=== PATIENT | female | born 1960 | race Caucasian/White ===

== ENCOUNTER 2024-08-16 21:25 | Inpatient (IN) | payer OTHER ==
--- NOTE | 2024-08-16 21:36 | ED ---
Neuro HPI - General Chief Complaint: Weakness Stated Complaint: Weakness Time Seen by Provider: 08/16/24 21:32 Source: patient, EMS, RN notes reviewed, old records reviewed Mode of arrival: EMS - History of Present Illness Is the patient presenting with stroke symptoms?: No Initial Comments: This is a 63-year-old female to ER with headache and paresthesia type symptoms with no focal neurological deficit. Patient has not been taking pain medicine or medication for about a month now admits to not feeling well. Patient admits to not taking care of herself well Location: speech, left face, dysarthria, left arm, left leg Place: work Severity: moderate Improves With: none Worsens With: none On Anticoagulants: Yes Associated Symptoms: denies other symptoms - Related Data Home Medications: Home Medications Medication Instructions Recorded Confirmed Furosemide [Lasix] 20 mg PO DAILY 08/17/24 08/17/24 Gabapentin 600 mg PO QID 08/17/24 08/17/24 Losartan Potassium [Cozaar] 100 mg PO DAILY 08/17/24 08/17/24 Metoprolol Succinate [Toprol XL] 200 mg PO DAILY 08/17/24 08/17/24 Montelukast [Singulair] 10 mg PO HS 08/17/24 08/17/24 Pioglitazone [Actos] 30 mg PO DAILY 08/17/24 08/17/24 Spironolactone [Aldactone] 100 mg PO DAILY 08/17/24 08/17/24 Triamterene/Hydrochlorothiazid 1 tab PO DAILY 08/17/24 08/17/24 [Triamterene-Hctz 37.5-25 mg Tb] glipiZIDE 10 mg PO BID 08/17/24 08/17/24 Allergies/Adverse Reactions: Allergies Allergy/AdvReac Type Severity Reaction Status Date / Time aspirin Allergy Itching Verified 08/17/24 07:36 Penicillins Allergy Swelling/Ra Verified 08/17/24 07:36 sh/Hives/It pan Review of Systems ROS Statement: Those systems with pertinent positive or pertinent negative responses have been documented in the HPI. ROS Other: All systems not noted in ROS Statement are negative. General Exam General appearance: alert, in no apparent distress, anxious Head exam: Present: atraumatic, normocephalic, normal inspection Eye exam: Present: normal appearance, PERRL, EOMI. Absent: scleral icterus, conjunctival injection, periorbital swelling ENT exam: Present: normal exam, mucous membranes moist Neck exam: Present: normal inspection. Absent: tenderness, meningismus, lymphadenopathy Respiratory exam: Present: normal lung sounds bilaterally. Absent: respiratory distress, wheezes, rales, rhonchi, stridor Cardiovascular Exam: Present: regular rate, normal rhythm, normal heart sounds. Absent: systolic murmur, diastolic murmur, rubs, gallop, clicks GI/Abdominal exam: Present: soft, normal bowel sounds. Absent: distended, tenderness, guarding, rebound, rigid Extremities exam: Present: normal inspection, full ROM, normal capillary refill. Absent: tenderness, pedal edema, joint swelling, calf tenderness Back exam: Present: normal inspection Neurological exam: Present: alert, oriented X3, CN II-XII intact Psychiatric exam: Present: normal affect, normal mood Skin exam: Present: warm, dry, intact, normal color. Absent: rash Stroke MDM - Lab Data Result diagrams: 08/18/24 07:45 08/18/24 07:45 Lab Results 08/16/24 08/16/24 08/16/24 Range/Units 21:49 21:58 21:58 WBC 9.2 (3.8-10.6) k/uL RBC 5.05 (3.80-5.40) m/uL Hgb 16.4 H (11.4-16.0) gm/dL Hct 45.5 (34.0-46.0) % MCV 90.1 (80.0-100.0) fL MCH 32.5 (25.0-35.0) pg MCHC 36.1 (31.0-37.0) g/dL RDW 12.7 (11.5-15.5) % Plt Count 235 (150-450) k/uL MPV 9.7 Neutrophils % 62 % Lymphocytes % 26 % Monocytes % 6 % Eosinophils % 3 % Basophils % 0 % Neutrophils # 5.7 (1.3-7.7) k/uL Lymphocytes # 2.4 (1.0-4.8) k/uL Monocytes # 0.6 (0-1.0) k/uL Eosinophils # 0.3 (0-0.7) k/uL Basophils # 0.0 (0-0.2) k/uL PT 9.8 L (10.0-12.5) sec INR 0.9 (<1.2) APTT 22.1 (22.0-30.0) sec D-Dimer 0.34 (<0.60) mg/L FEU Sodium (137-145) mmol/L Potassium (3.5-5.1) mmol/L Chloride (98-107) mmol/L Carbon Dioxide (22-30) mmol/L Anion Gap mmol/L BUN (7-17) mg/dL Creatinine (0.52-1.04) mg/dL Est GFR (CKD-EPI)AfAm (>60 ml/min/1.73 sqM) Est GFR (CKD-EPI)NonAf (>60 ml/min/1.73 sqM) Glucose (74-99) mg/dL POC Glucose (mg/dL) 363 H (70-110) mg/dL POC Glu De Alcholizer ID Red Brittny Lactic Ac Sepsis Rflx Plasma Lactic Acid Jerome (0.7-2.0) mmol/L Calcium (8.4-10.2) mg/dL Phosphorus (2.5-4.5) mg/dL Magnesium (1.6-2.3) mg/dL Total Bilirubin (0.2-1.3) mg/dL AST (14-36) U/L ALT (4-34) U/L Alkaline Phosphatase (38-126) U/L Troponin I (0.000-0.034) ng/mL NT-Pro-B Natriuret Pep pg/mL Total Protein (6.3-8.2) g/dL Albumin (3.5-5.0) g/dL 08/16/24 08/16/24 08/16/24 Range/Units 21:58 21:58 21:58 WBC (3.8-10.6) k/uL RBC (3.80-5.40) m/uL Hgb (11.4-16.0) gm/dL Hct (34.0-46.0) % MCV (80.0-100.0) fL MCH (25.0-35.0) pg MCHC (31.0-37.0) g/dL RDW (11.5-15.5) % Plt Count (150-450) k/uL MPV Neutrophils % % Lymphocytes % % Monocytes % % Eosinophils % % Basophils % % Neutrophils # (1.3-7.7) k/uL Lymphocytes # (1.0-4.8) k/uL Monocytes # (0-1.0) k/uL Eosinophils # (0-0.7) k/uL Basophils # (0-0.2) k/uL PT (10.0-12.5) sec INR (<1.2) APTT (22.0-30.0) sec D-Dimer (<0.60) mg/L FEU Sodium 138 (137-145) mmol/L Potassium 4.6 (3.5-5.1) mmol/L Chloride 107 (98-107) mmol/L Carbon Dioxide 18 L (22-30) mmol/L Anion Gap 13 mmol/L BUN 27 H (7-17) mg/dL Creatinine 1.25 H (0.52-1.04) mg/dL Est GFR (CKD-EPI)AfAm 53 (>60 ml/min/1.73 sqM) Est GFR (CKD-EPI)NonAf 46 (>60 ml/min/1.73 sqM) Glucose 356 H (74-99) mg/dL POC Glucose (mg/dL) (70-110) mg/dL POC Glu De Alcholizer ID Lactic Ac Sepsis Rflx Plasma Lactic Acid Jerome 2.6 H* (0.7-2.0) mmol/L Calcium 9.4 (8.4-10.2) mg/dL Phosphorus 5.1 H (2.5-4.5) mg/dL Magnesium 1.8 (1.6-2.3) mg/dL Total Bilirubin 0.6 (0.2-1.3) mg/dL AST 27 (14-36) U/L ALT 23 (4-34) U/L Alkaline Phosphatase 63 (38-126) U/L Troponin I 0.056 H* (0.000-0.034) ng/mL NT-Pro-B Natriuret Pep 200 pg/mL Total Protein 7.3 (6.3-8.2) g/dL Albumin 4.3 (3.5-5.0) g/dL 08/16/24 Range/Units 22:55 WBC (3.8-10.6) k/uL RBC (3.80-5.40) m/uL Hgb (11.4-16.0) gm/dL Hct (34.0-46.0) % MCV (80.0-100.0) fL MCH (25.0-35.0) pg MCHC (31.0-37.0) g/dL RDW (11.5-15.5) % Plt Count (150-450) k/uL MPV Neutrophils % % Lymphocytes % % Monocytes % % Eosinophils % % Basophils % % Neutrophils # (1.3-7.7) k/uL Lymphocytes # (1.0-4.8) k/uL Monocytes # (0-1.0) k/uL Eosinophils # (0-0.7) k/uL Basophils # (0-0.2) k/uL PT (10.0-12.5) sec INR (<1.2) APTT (22.0-30.0) sec D-Dimer (<0.60) mg/L FEU Sodium (137-145) mmol/L Potassium (3.5-5.1) mmol/L Chloride (98-107) mmol/L Carbon Dioxide (22-30) mmol/L Anion Gap mmol/L BUN (7-17) mg/dL Creatinine (0.52-1.04) mg/dL Est GFR (CKD-EPI)AfAm (>60 ml/min/1.73 sqM) Est GFR (CKD-EPI)NonAf (>60 ml/min/1.73 sqM) Glucose (74-99) mg/dL POC Glucose (mg/dL) (70-110) mg/dL POC Glu De Alcholizer ID Lactic Ac Sepsis Rflx Y Plasma Lactic Acid Jerome (0.7-2.0) mmol/L Calcium (8.4-10.2) mg/dL Phosphorus (2.5-4.5) mg/dL Magnesium (1.6-2.3) mg/dL Total Bilirubin (0.2-1.3) mg/dL AST (14-36) U/L ALT (4-34) U/L Alkaline Phosphatase (38-126) U/L Troponin I (0.000-0.034) ng/mL NT-Pro-B Natriuret Pep pg/mL Total Protein (6.3-8.2) g/dL Albumin (3.5-5.0) g/dL - NIH Stroke Scale 1a. Level of Consciousness: (0) alert 1b. LOC Questions: (0) answers correctly 1c. LOC Commands: (0) performs tasks correctly 2. Best Gaze: (0) normal 3. Visual: (0) no visual loss 4. Facial Palsy: (0) normal symmetrical movement 5a. Motor Arm Left: (0) no drift 5b. Motor Arm Right: (0) no drift 6a. Motor Leg Left: (0) no drift 6b. Motor Leg Right: (0) no drift 7. Limb Ataxia: (0) absent 8. Sensory: (0) normal 9. Best Language: (0) no aphasia 10. Dysarthria: (0) normal 11. Extinction/Inattention: (0) no abnormality - Medical Decision Making 63 female to be admitted for nonspecific neurological complaints paresthesia with symptoms improving TIA, patient has elevated blood pressure improved here in the ER with blood pressure control not taking medications and noncompliance persistent weakness here in the ER - Radiology Data Radiology results: report reviewed (CT brain CTA head neck negative for acute disease), image reviewed - EKG Data -: EKG Interpreted by Me (EKG is sinus tachycardia 113 NE 171 QRS 86 QTc 386) Past Medical History Past Medical History: Asthma, Diabetes Mellitus, Hyperlipidemia, Hypertension History of Any Multi-Drug Resistant Organisms: None Reported Past Surgical History: Cholecystectomy, Hysterectomy Past Psychological History: Depression Smoking Status: Former smoker Past Alcohol Use History: None Reported Past Drug Use History: None Reported - Past Family History Mother Family Medical History: Hypertension Additional Family Medical History / Comment(s): Pulmonary hypertension, scleroderma, chronic kidney disease Father Family Medical History: Myocardial Infarction (NC) Additional Family Medical History / Comment(s): CABG surgery in his mid 60s Course Vital Signs 08/16/24 08/16/24 08/16/24 21:28 21:58 22:25 Temperature 99.1 F Pulse Rate 118 H 91 Respiratory 18 18 Rate Blood Pressure 200/116 144/87 O2 Sat by Pulse 99 95 91 L Oximetry 08/16/24 08/17/24 08/17/24 22:26 00:49 01:00 Temperature Pulse Rate 99 92 90 Respiratory 18 18 Rate Blood Pressure 117/91 117/80 O2 Sat by Pulse 97 97 Oximetry 08/17/24 08/17/24 08/17/24 04:00 05:45 05:58 Temperature 98.8 F 98.7 F Pulse Rate 98 97 98 Respiratory 18 16 18 Rate Blood Pressure 148/66 170/92 159/103 O2 Sat by Pulse 95 98 99 Oximetry 08/17/24 08/17/24 08/17/24 06:17 07:42 07:54 Temperature Pulse Rate 99 Respiratory 18 Rate Blood Pressure 161/89 O2 Sat by Pulse 96 96 96 Oximetry 08/17/24 08/17/24 08:14 09:39 Temperature 98.1 F Pulse Rate 99 109 H Respiratory 18 22 Rate Blood Pressure 136/89 145/116 O2 Sat by Pulse 95 96 Oximetry - Reevaluation(s) Reevaluation #1: 08/16/24 22:15 Record is reviewed Reevaluation #2: 08/16/24 23:46 Symptoms unchanged 08/16/24 23:46 Neurologic symptoms resolved Reevaluation #3: 08/16/24 23:46 Informed of results and questions answered Reevaluation #4: Was pt. sent in by a medical professional or institution (, PA, THEATRE INSTRUCTOR, urgent care, hospital, or usp...) When possible be specific @ -no Did you speak to anyone other than the patient for history (EMS, parent, family, police, friend...)? What history was obtained from this source @ -no Did you review nursing and triage notes (agree or disagree)? Why? @ -agree Are old charts reviewed (outside hosp., previous admission, EMS record, old EKG, old radiological studies, urgent care reports/EKG's, usp records)? Report findings @ -yes Differential Diagnosis (chest pain, altered mental status, abdominal pain women, abdominal pain men, vaginal bleeding, weakness, fever, dyspnea, syncope, headache, dizziness, GI bleed, back pain, seizure, CVA, palpatations, mental health, musculoskeletal)? @ -prior EKG interpreted by me (3pts min.). @ -yes X-rays interpreted by me (1pt min.). @ -yes negative for acute disease CT interpreted by me (1pt min.). @ -yes negative for acute disease U/S interpreted by me (1pt. min.). @ -no What testing was considered but not performed or refused? (CT, X-rays, U/S, labs)? Why? @ -none What meds were considered but not given or refused? Why? @ -none Did you discuss the management of the patient with other professionals (professionals i.e. , PA, THEATRE INSTRUCTOR, lab, RT, psych nurse, medical social worker, software test specialist, teacher, equal opportunity officer, case management specialist)? Give summary @ -no Was smoking cessation discussed for >3mins.? @ -no Was critical care preformed (if so, how long)? @ -no Were there social determinants of health that impacted care today? How? (Homelessness, low income, unemployed, alcoholism, drug addiction, t ransportation, low edu. Level, literacy, decrease access to med. care, fdc, rehab)? @ -none Was there de-escalation of care discussed even if they declined (Discuss DNR or withdrawal of care, Hospice)? DNR status @ -no What co-morbidities impacted this encounter? (DM, HTN, Smoking, COPD, CAD, Can cer, CVA, ARF, Chemo, Hep., AIDS, mental health diagnosis, sleep apnea, morbid obesity)? @ -none Was patient admitted / discharged? Hospital course, mention meds given and route, prescriptions, significant lab abnormalities, going to OR and other pertinent info. @ - 63 female to be admitted for nonspecific neurological complaints paresthesia with symptoms improving TIA, patient has elevated blood pressure improved here in the ER with blood pressure control not taking medications and noncompliance persistent weakness here in the ER Admitted Undiagnosed new problem with uncertain prognosis? @ -no Drug Therapy requiring intensive monitoring for toxicity (Heparin, Nitro, Insulin, Cardizem)? @ -no Were any procedures done? @ -no Diagnosis/symptom? @ -TIA Acute, or Chronic, or Acute on Chronic? @ -Acute Uncomplicated (without systemic symptoms) or Complicated (systemic symptoms)? @ -Complicated Side effects of treatment? @ -no Exacerbation, Progression, or Severe Exacerbation? @ -exacerbation Poses a threat to life or bodily function? How? (Chest pain, USA, NC, pneumonia, PE, COPD, DKA, ARF, appy, cholecystitis, CVA, Diverticulitis, Homicidal, Suicidal, threat to staff... and all critical care pts) @ -yes neurologic insult Reevaluation #5: Differential Weakness: Hypoglycemia, shock, sepsis, hyponatremia, anemia, infection, NC, ETOH, adverse medicine reaction, overdose, stroke, this is not meant to be an all-inclusive list. - Consultations Consultation #1: Spoke with admitting physicians who agreed to admit this patient Disposition Clinical Impression: Dehydration, Paresthesia, TIA (transient ischemic attack), Hypertension, Weakness Disposition: ADMITTED IP TO THIS HOSP Condition: Fair Is patient prescribed a controlled substance at d/c from ED?: No Time of Disposition: 23:40
[2024-08-16] MEDS: SODIUM CHLORIDE 0.9% 1,000 ML IV STA (21:41)
[2024-08-16] MEDS: LABETALOL 5 MG/ML VIAL MDV IVP STA (21:42)
[2024-08-16 21:51] LABS: Glucose,Whole Blood 363 mg/dL (70-110)
[2024-08-16 22:17] LABS: Basophils % (A) 0 %; Eosinophils # (A) 0.3 k/uL (0-0.7); Eosinophils % (A) 3 %; HCT 45.5 % (34.0-46.0); HGB 16.4 gm/dL (11.4-16.0); Lymphocytes # (A) 2.4 k/uL (1.0-4.8); Lymphocytes % (A) 26 %; MCH 32.5 pg (25.0-35.0); MCHC 36.1 g/dL (31.0-37.0); MCV 90.1 fL (80.0-100.0); Mean Platelet Volume 9.7; Monocytes # (A) 0.6 k/uL (0-1.0); Monocytes % (A) 6 %; Neutrophils # (A) 5.7 k/uL (1.3-7.7); Neutrophils % (A) 62 %; Platelet Count 235 k/uL (150-450); RBC 5.05 m/uL (3.80-5.40); RDW 12.7 % (11.5-15.5); WBC 9.2 k/uL (3.8-10.6)
[2024-08-16 22:32] LABS: INR 0.9 (<1.2); Partial Thromboplastin Time 22.1 sec (22.0-30.0); Prothrombin Time 9.8 sec (10.0-12.5)
[2024-08-16 22:55] LABS: ALT 23 U/L (4-34); AST 27 U/L (14-36); African American GFR (CKD) 53 (>60 ml/min/1.73 sqM); Albumin 4.3 g/dL (3.5-5.0); Alkaline Phosphatase 63 U/L (38-126); Anion Gap 13 mmol/L; Blood Urea Nitrogen 27 mg/dL (7-17); Calcium 9.4 mg/dL (8.4-10.2); Carbon Dioxide 18 mmol/L (22-30); Chloride 107 mmol/L (98-107); Glucose 356 mg/dL (74-99); Magnesium 1.8 mg/dL (1.6-2.3); Non-African American GFR(CKD) 46 (>60 ml/min/1.73 sqM); Phosphorus 5.1 mg/dL (2.5-4.5); Potassium 4.6 mmol/L (3.5-5.1); Sodium 138 mmol/L (137-145); Total Bilirubin 0.6 mg/dL (0.2-1.3); Total Protein 7.3 g/dL (6.3-8.2)
[2024-08-16 23:02] LABS: NT-Pro-B-Type Natriuretic Pept 200 pg/mL
[2024-08-16] MEDS ORDERED: ONDANSETRON 4 MG/2 ML VIAL IVP PRN (23:44)
[2024-08-16] MEDS ORDERED: NALOXONE 0.4 MG/ML 1 ML VIAL IV PRN (23:44)
[2024-08-17] MEDS: SODIUM CHLORIDE 0.9% 1,000 ML IV SCH ×2 (00:17→10:50)
[2024-08-17] MEDS ORDERED: IPRATROPIUM-ALBUTEROL 3 ML NEB INHALATION PRN (00:25)
--- NOTE | 2024-08-17 00:36 | CT ---
EXAM: CT Head Without Intravenous Contrast CLINICAL HISTORY: pain TECHNIQUE: Axial computed tomography images of the head/brain without intravenous contrast. CTDI is 48.8 mGy and DLP is 1099 mGy-cm. This CT exam was performed using one or more of the following dose reduction techniques: automated exposure control, adjustment of the mA and/or kV according to patient size, and/or use of iterative reconstruction technique. COMPARISON: No relevant prior studies available. FINDINGS: Brain: Chronic, small vessel ischemic changes in the white matter, particularly in the right periventricular region. No acute intracranial edema, hemorrhage or abnormal mass-effect. Ventricles: Unremarkable. No ventriculomegaly. Bones/joints: Unremarkable. No acute fracture. Soft tissues: Unremarkable. Sinuses: Unremarkable as visualized. No acute sinusitis. Mastoid air cells: Unremarkable as visualized. No mastoid effusion. IMPRESSION: No acute findings in the head/brain.
--- NOTE | 2024-08-17 00:36 | CT ---
EXAM: CT Angiography Head With Intravenous Contrast CLINICAL HISTORY: pain TECHNIQUE: Axial computed tomographic angiography images of the head with intravenous contrast. CTDI is 25.9 mGy and DLP is 314.5 mGy-cm. This CT exam was performed using one or more of the following dose reduction techniques: automated exposure control, adjustment of the mA and/or kV according to patient size, and/or use of iterative reconstruction technique. MIP reconstructed images were created and reviewed. COMPARISON: No relevant prior studies available. FINDINGS: Right internal carotid artery: No acute findings. Intracranial segment is patent with no significant stenosis. No aneurysm. Right anterior cerebral artery: Unremarkable. No occlusion or significant stenosis. No aneurysm. Right middle cerebral artery: Unremarkable. No occlusion or significant stenosis. No aneurysm. Right posterior cerebral artery: Unremarkable. No occlusion or significant stenosis. No aneurysm. Right vertebral artery: Unremarkable as visualized. Left internal carotid artery: No acute findings. Intracranial segment is patent with no significant stenosis. No aneurysm. Left anterior cerebral artery: Unremarkable. No occlusion or significant stenosis. No aneurysm. Left middle cerebral artery: Unremarkable. No occlusion or significant stenosis. No aneurysm. Left posterior cerebral artery: Unremarkable. No occlusion or significant stenosis. No aneurysm. Left vertebral artery: Unremarkable as visualized. Basilar artery: Unremarkable. No occlusion or significant stenosis. No aneurysm. IMPRESSION: No evidence of aneurysm, severe stenosis or major intracranial branch occlusion. EXAM: CT Neck With Intravenous Contrast CLINICAL HISTORY: pain TECHNIQUE: Routine carotid CT protocol was performed with intravenous contrast. NASCET criteria using the distal ICAs for comparison were used for evaluation of stenoses. CTDI is 25.9 mGy and DLP is 314.5 mGy-cm. This CT exam was performed using one or more of the following dose reduction techniques: automated exposure control, adjustment of the mA and/or kV according to patient size, and/or use of iterative reconstruction technique. COMPARISON: None. FINDINGS: VASCULATURE: Right common carotid artery: Unremarkable. No occlusion or significant stenosis. No dissection. Right internal carotid artery: Calcific plaques in the proximal right internal carotid artery causing less than 50% stenosis. No dissection. Right external carotid artery: Unremarkable. No occlusion. Right vertebral artery: Unremarkable. No occlusion or significant stenosis. No dissection. Left common carotid artery: Unremarkable. No occlusion or significant stenosis. No dissection. Left internal carotid artery: Calcific plaques in the proximal left internal carotid artery causing less than 50% stenosis. No dissection. Left external carotid artery: Unremarkable. No occlusion. Left vertebral artery: Unremarkable. No occlusion or significant stenosis. No dissection. NECK: Bones/joints: Unremarkable. No acute fracture. Soft tissues: Unremarkable. Lung apices: There is a suggestion of mild diffuse bilateral in the upper lung quevedo, particular posteriorly. CAROTID STENOSIS REFERENCE USING NASCET CRITERIA: % ICA stenosis = (1 - narrowest ICA diameter/diameter of distal cervical ICA) x 100. Mild - <50% stenosis. Moderate - 50-69% stenosis. Severe - 70-94% stenosis. Near occlusion - 95-99% stenosis. Occluded - 100% stenosis. IMPRESSION: No dissection, occlusion or stenosis of greater than 50%. Mild increased lung density in the posterior aspects of both upper lung quevedo. This may represent some diffuse dependent mild atelectasis though infiltration is not excluded.
[2024-08-17] MEDS: IPRATROPIUM-ALBUTEROL 3 ML NEB INHALATION STA (00:48)
[2024-08-17] MEDS: ACETAMINOPHEN TAB 325 MG TAB PO PRN (03:19)
[2024-08-17 05:45] LABS: Basophils % (A) 0 %; Eosinophils % (A) 0 %; HCT 43.9 % (34.0-46.0); HGB 15.4 gm/dL (11.4-16.0); Lymphocytes # (A) 1.9 k/uL (1.0-4.8); Lymphocytes % (A) 15 %; MCHC 35.1 g/dL (31.0-37.0); MCV 91.1 fL (80.0-100.0); Mean Platelet Volume 9.4; Monocytes # (A) 0.5 k/uL (0-1.0); Monocytes % (A) 4 %; Neutrophils # (A) 9.9 k/uL (1.3-7.7); Neutrophils % (A) 79 %; Platelet Count 239 k/uL (150-450); RBC 4.81 m/uL (3.80-5.40); RDW 12.9 % (11.5-15.5); WBC 12.4 k/uL (3.8-10.6)
[2024-08-17] MEDS: MORPHINE SULFATE 4 MG/ML SYRINGE IVP STA (06:00)
[2024-08-17 06:02] LABS: ALT 25 U/L (4-34); AST 51 U/L (14-36); African American GFR (CKD) 77 (>60 ml/min/1.73 sqM); Alkaline Phosphatase 59 U/L (38-126); Anion Gap 8 mmol/L; Blood Urea Nitrogen 23 mg/dL (7-17); Calcium 9.1 mg/dL (8.4-10.2); Carbon Dioxide 21 mmol/L (22-30); Chloride 108 mmol/L (98-107); Glucose 404 mg/dL (74-99); Magnesium 1.9 mg/dL (1.6-2.3); Non-African American GFR(CKD) 67 (>60 ml/min/1.73 sqM); Phosphorus 4.3 mg/dL (2.5-4.5); Potassium 4.9 mmol/L (3.5-5.1); Sodium 137 mmol/L (137-145); Total Bilirubin 0.5 mg/dL (0.2-1.3)
[2024-08-17 06:14] LABS: Glucose,Whole Blood 418 mg/dL (70-110)
[2024-08-17] MEDS ORDERED: HEPARIN SODIUM 1,000 UN/ML (10ML VL) IV PRN (06:15)
[2024-08-17] MEDS ORDERED: NITROGLYCERIN SL TABS 0.4 MG TAB SUBLINGUAL PRN ×2 (06:17→09:25)
[2024-08-17] MEDS: ATORVASTATIN 80 MG TAB PO STA ×2 (06:29→12:11)
[2024-08-17] MEDS: SODIUM CHLORIDE 0.9% 500 ML 500 ML IV ONE (06:29)
[2024-08-17] MEDS: HEPARIN SODIUM 1,000 UN/ML (10ML VL) IV ONE ×2 (06:29→10:27)
[2024-08-17] MEDS: INSULIN REGULAR 100 UNIT/ML VIAL (IV) IV ONE (06:30)
[2024-08-17] MEDS: HEPARIN SOD,PORK IN 0.45% NACL 25,000 UNIT in 0.45% NACL 1 250ML.BAG IV SCH (06:30)
[2024-08-17] MEDS: LABETALOL 5 MG/ML VIAL MDV IVP STA (06:33)
[2024-08-17 06:59] LABS: Glucose,Whole Blood 389 mg/dL (70-110)
[2024-08-17] MEDS ORDERED: HEPARIN SODIUM,PORCINE (1 ML) 2,500 UNIT in SODIUM CHLORIDE 0.9% 250 ML IRRIGATION PRN (07:00)
[2024-08-17] MEDS ORDERED: HEPARIN SODIUM,PORCINE 10,000 UNIT in SODIUM CHLORIDE 0.9% 1,000 ML IRRIGATION PRN (07:00)
[2024-08-17] MEDS ORDERED: ALPRAZolam 0.25 MG TAB PO PRN (09:25)
[2024-08-17] MEDS: SODIUM CHLORIDE 0.9% 1,000 ML IV ONE (10:09)
[2024-08-17] MEDS: HEPARIN SODIUM,PORCINE 10,000 UNIT in SODIUM CHLORIDE 0.9% 1,000 ML IRRIGATION ONE (10:09)
[2024-08-17] MEDS: HEPARIN SODIUM,PORCINE (1 ML) 2,500 UNIT in SODIUM CHLORIDE 0.9% 250 ML IRRIGATION ONE (10:09)
[2024-08-17] MEDS: MIDAZOLAM 2 MG/2 ML VIAL IVP ONE (10:18)
[2024-08-17] MEDS: fentaNYL (PF) 50 MCG/ML 2 ML AMP IVP ONE (10:18)
[2024-08-17] MEDS: LIDOCAINE 1% INJ 10MG/ML (20 ML MDV) SQ ONE (10:21)
[2024-08-17] MEDS: VERAPAMIL SYRINGE (5 MG/10 ML) INTRAARTER ONE (10:24)
[2024-08-17] MEDS: IOPAMIDOL-370 200ML BTL INJ ONE (10:40)
--- NOTE | 2024-08-17 10:40 | P.CRDCN ---
History of Present Illness Consult date: 08/17/24 Reason for Consult (text): NSTEMI History of present illness: HPI: Patient is a 63 year old female presented with headache and paresthesia type symptoms. Patient said when she had sudden onset substernal chest pain when she was taking out her trash yesterday. The chest pain did not go away with rest hence she called 911 and came in to the hospital. She was seen this morning in the ED. She does not complain of any chest pain at this moment. No shortness of breath, nausea, vomiting, diarrhea, fever, chills reported. She does report a numbness and tingling in her left arm and left leg. She has a past medical history of asthma, diabetes mellitus, hyperlipidemia, hypertension. Her past surgical history includes cholecystectomy and hysterectomy. In the ED, CTA of her head and neck was normal. No evidence of aneurysm, stenosis or occlusion. Her EKG showed sinus tachycardia, possible anterior LA, Q waves in V3/V4. CT of her brain showed no acute findings. CBC showed WBC of 12.4, hemoglobin 15.4, hematocrit 43.9, platelet 239. CMP showed sodium 137, potassium 4.9, chloride 108, carbon dioxide 21, BUN 23, creatinine 0.93, glucose 404. Troponin increased from 0.056 to 4.960. BNP 200. Lactic acid 3.2. She is saturating at 96% on nasal cannula at 2L/min. ROS: 14 points ROS negative except those mentioned in the HPI. PMH: Asthma, diabetes mellitus, hyperlipidemia, hypertension PSH: Cholecystectomy and hysterectomy Previous social history: Former smoker Family History: None reported Physical Exam: General: Alert and oriented, not in acute distress Cardiovascular: Regular heart rate, no diastolic/systolic murmurs Respiratory: Clear to auscultation bilaterally, no wheezing/rhonchi/stridor/crackles Abdominal: Soft, nontender to palpation, nondistended Extremity: No peripheral edema Musculoskeletal: Intact muscle strength 5/5 bilaterally. Neurological: No facial nerve deficit noted. Previous Cardiac workup: No previous cardiac workup reported. Does not see a contract management specialist. Impression: 1) NSTEMI 2) Headache - CT of head and neck and brain showed normal findings Plan: Will order echocardiogram. Patient will undergo heart catheterization procedure. Risks and benefits were discussed with patient. Patient agreed with the procedure. Past Medical History Past Medical History: Asthma, Diabetes Mellitus, Hyperlipidemia, Hypertension History of Any Multi-Drug Resistant Organisms: None Reported Past Surgical History: Cholecystectomy, Hysterectomy Past Psychological History: Depression Smoking Status: Former smoker Past Alcohol Use History: None Reported Past Drug Use History: None Reported Medications and Allergies Home Medications Medication Instructions Recorded Confirmed Type Furosemide [Lasix] 20 mg PO DAILY 08/17/24 08/17/24 History Gabapentin 600 mg PO QID 08/17/24 08/17/24 History Losartan Potassium [Cozaar] 100 mg PO DAILY 08/17/24 08/17/24 History Metoprolol Succinate [Toprol XL] 200 mg PO DAILY 08/17/24 08/17/24 History Montelukast [Singulair] 10 mg PO HS 08/17/24 08/17/24 History Pioglitazone [Actos] 30 mg PO DAILY 08/17/24 08/17/24 History Spironolactone [Aldactone] 100 mg PO DAILY 08/17/24 08/17/24 History Triamterene/Hydrochlorothiazid 1 tab PO DAILY 08/17/24 08/17/24 History [Triamterene-Hctz 37.5-25 mg Tb] glipiZIDE 10 mg PO BID 08/17/24 08/17/24 History Allergies Allergy/AdvReac Type Severity Reaction Status Date / Time aspirin Allergy Itching Verified 08/17/24 07:36 Penicillins Allergy Swelling/Ra Verified 08/17/24 07:36 sh/Hives/It pan Physical Exam Vitals: Vital Signs Temp Pulse Resp BP Pulse Ox 08/17/24 08:14 99 18 136/89 95 08/17/24 07:54 96 08/17/24 07:42 96 08/17/24 06:17 99 18 161/89 96 08/17/24 05:58 98.7 F 98 18 159/103 99 08/17/24 05:45 97 16 170/92 98 08/17/24 04:00 98.8 F 98 18 148/66 95 08/17/24 01:00 90 18 117/80 97 08/17/24 00:49 92 08/16/24 22:26 99 18 117/91 97 08/16/24 22:25 91 L 08/16/24 21:58 91 18 144/87 95 08/16/24 21:28 99.1 F 118 H 18 200/116 99 Intake and Output 08/16/24 08/17/24 08/17/24 22:59 06:59 14:59 Other: Weight 113.398 kg Results 08/17/24 05:25 08/17/24 05:25 Cardiac Enzymes 08/16/24 08/16/24 08/17/24 Range/Units 21:58 21:58 05:25 AST 27 51 H (14-36) U/L Troponin I 0.056 H* (0.000-0.034) ng/mL 08/17/24 08/17/24 Range/Units 05:25 07:39 AST (14-36) U/L Troponin I 4.960 H* 6.200 H* (0.000-0.034) ng/mL Coagulation 08/16/24 Range/Units 21:58 PT 9.8 L (10.0-12.5) sec APTT 22.1 (22.0-30.0) sec CBC 08/16/24 08/17/24 Range/Units 21:58 05:25 WBC 9.2 12.4 H (3.8-10.6) k/uL RBC 5.05 4.81 (3.80-5.40) m/uL Hgb 16.4 H 15.4 (11.4-16.0) gm/dL Hct 45.5 43.9 (34.0-46.0) % Plt Count 235 239 (150-450) k/uL Comprehensive Metabolic Panel 08/16/24 08/17/24 Range/Units 21:58 05:25 Sodium 138 137 (137-145) mmol/L Potassium 4.6 4.9 (3.5-5.1) mmol/L Chloride 107 108 H (98-107) mmol/L Carbon Dioxide 18 L 21 L (22-30) mmol/L BUN 27 H 23 H (7-17) mg/dL Creatinine 1.25 H 0.93 (0.52-1.04) mg/dL Glucose 356 H 404 H (74-99) mg/dL Calcium 9.4 9.1 (8.4-10.2) mg/dL AST 27 51 H (14-36) U/L ALT 23 25 (4-34) U/L Alkaline Phosphatase 63 59 (38-126) U/L Total Protein 7.3 7.0 (6.3-8.2) g/dL Albumin 4.3 4.0 (3.5-5.0) g/dL Current Medications Generic Name Dose Route Start Last Admin Trade Name Freq PRN Reason Stop Dose Admin Acetaminophen 650 mg 08/17/24 03:08 08/17/24 03:19 Acetaminophen Tab 325 Mg Tab PO 650 mg Q6HR PRN Administration Fever and/or Mild Pain Albuterol/Ipratropium 3 ml 08/17/24 00:25 Ipratropium-Albuterol 3 Ml Neb INHALATION RT-QID PRN Shortness Of Breath Or Wheezing Atorvastatin Calcium 80 mg 08/17/24 21:00 Atorvastatin 80 Mg Tab PO HS JOANIE Heparin Sodium (Porcine) 0 unit 08/17/24 06:15 Heparin Sodium 1,000 Un/Ml (10ml Vl) IV PER PROTOCOL PRN Low PTT Protocol Sodium Chloride 1,000 mls @ 75 mls/hr 08/16/24 23:45 08/17/24 00:17 Saline 0.9% IV 75 mls/hr .[id number] JOANIE Administration Heparin Sodium/Sodium Chloride 250 mls @ 10.002 mls/hr 08/17/24 06:15 08/17/24 06:30 25,000 unit/ Sodium Chloride IV 8.82 units/kg/hr .Q24H JOANIE 10.002 mls/hr Administration Protocol 8.82 UNITS/KG/HR Metoprolol Tartrate 50 mg 08/17/24 09:00 Metoprolol Tartrate 50 Mg Tab PO BID JOANIE Morphine Sulfate 4 mg 08/17/24 05:52 Morphine Sulfate 4 Mg/Ml Syringe IVP Q4HR PRN Pain Naloxone HCl 0.2 mg 08/16/24 23:44 Naloxone 0.4 Mg/Ml 1 Ml Vial IV Q2M PRN Opioid Reversal Nitroglycerin 0.4 mg 08/17/24 06:17 Nitroglycerin Sl Tabs 0.4 Mg Tab SUBLINGUAL Q5M PRN Chest Pain Ondansetron HCl 4 mg 08/16/24 23:44 Ondansetron 4 Mg/2 Ml Vial IVP Q8HR PRN Nausea And Vomiting Intake and Output 08/16/24 08/17/24 08/17/24 22:59 06:59 14:59 Other: Weight 113.398 kg 08/17/24 05:25 08/17/24 05:25
[2024-08-17] MEDS ORDERED: RX INFO: IV CONTRAST WAS GIVEN 1 EACH MISC MISCELLANE PRN (10:45)
[2024-08-17 11:28] LABS: Glucose,Whole Blood 317 mg/dL (70-110)
--- NOTE | 2024-08-17 11:32 | CC ---
CARDIAC CATHETERIZATION REPORT INDICATION: Acute yhq-[id number]-ihqwees elevation NH. PROCEDURE NOTE: After obtaining informed consent, left heart catheterization and coronary angiogram were performed via the right radial artery using standard Ernst catheters. The patient tolerated the procedure well without any obvious immediate complications. A TR band will be placed for hemostasis. The patient received moderate conscious sedation. Total sedation time was 17 minutes. The patient was on heparin prior to coming in. She was given an additional dose of 1000 units of heparin. Right radial artery access was obtained using Seldinger technique, 6-Greek sheath was placed. Catheters and wires were floated into the ascending aorta under fluoroscopic guidance. She received verapamil per protocol. FINDINGS: 1. HEMODYNAMICS: Left ventricular end-diastolic pressure is 8 to 12 mm. There is no significant gradient across the aortic valve. 2. ANGIOGRAPHIC DATA: a.Right coronary artery: Right coronary artery is a large dominant vessel that has a long segment of narrowing extending from proximal to mid RCA. There are extensive collaterals from the right coronary artery to the LAD. b.Left main coronary artery is a short vessel and is free of stenosis. It divides into circumflex coronary artery and left anterior descending coronary artery. Circumflex coronary artery shows a focal 90% stenosis. LAD shows a long segment of narrowing in the proximal portion. At its worst, it seems to be 99% stenosis. There is a large caliber diagonal branch that has an 80% to 90% stenosis. There are guts-ft-[id number] and [id number] collaterals. CONCLUSION: 1. Severe three-vessel coronary artery disease as described above. 2. The patient is a diabetic. PLAN: I am going to consult a cardiothoracic surgeon to evaluate the patient for surgical revascularization. I will restart her heparin in 4 hours time. We will hold off on starting her on Plavix at this time in the event that she needs a bypass surgery. We are not able to give her any aspirin as she is allergic to aspirin. We will treat her with beta blockers, ANDREA inhibitors, statins, and nitrates. MMODL / IJN: [id number] /
[2024-08-17] MEDS ORDERED: DEXTROSE 50% SYRINGE 50 ML IVP PRN ×2 (12:08)
[2024-08-17] MEDS: MORPHINE SULFATE 4 MG/ML SYRINGE IVP PRN (12:10)
[2024-08-17] MEDS: SODIUM CHLORIDE 0.9% 1,000 ML in EMPTY BAG 1 BAG IV SCH (12:11)
[2024-08-17] MEDS: ASPIRIN 325 MG TAB PO STA (12:11)
--- NOTE | 2024-08-17 12:46 | CA ---
Transthoracic Echo Report Name: Elmira Mobley Age: 63 Gender: F : 1960 Exam Date: 08/17/2024 08:56 Exam Location: [facility] Ht (in): 65 Wt (lb): 250 Ordering Physician: Reece Abernathy DO Attending/Referring Phys: [id number], Josemanuel Coin Dealer Chiqui Ames RDCS Procedure CPT: Indications: CP Cardiac Hx: Technical Quality: Contrast 1: Total Dose (mL): Contrast 2: Total Dose (mL): MEASUREMENTS (Male / Female) Normal Values 2D ECHO LV Diastolic Diameter PLAX 4.2 cm 4.2 - 5.9 / 3.9 - 5.3 cm LV Systolic Diameter PLAX 3.2 cm IVS Diastolic Thickness 1.4 cm 0.6 - 1.0 / 0.6 - 0.9 cm LVPW Diastolic Thickness 1.4 cm 0.6 - 1.0 / 0.6 - 0.9 cm LV Relative Wall Thickness 0.7 LA Systolic Diameter LX 4.2 cm 3.0 - 4.0 / 2.7 - 3.8 cm LV Diastolic Volume MOD BP 121.2 cm??? 67 - 155 / 56 - 104 cm??? LV Systolic Volume MOD BP 90.2 cm??? 22 - 58 / 19 - 49 cm??? LV Ejection Fraction MOD BP 25.5 % >= 55 % LV Diastolic Volume MOD 4C 123.8 cm??? LV Systolic Volume MOD 4C 88.3 cm??? LV Ejection Fraction MOD 4C 28.7 % LV Diastolic Length 4C 9.1 cm LV Systolic Length 4C 8.7 cm LV Diastolic Volume MOD 2C 119.6 cm??? LV Systolic Volume MOD 2C 90.5 cm??? LV Ejection Fraction MOD 2C 24.4 % LV Diastolic Length 2C 9.1 cm LV Systolic Length 2C 8.3 cm LA Volume 61.4 cm??? 18 - 58 / 22 - 52 cm??? LA Volume Index 26.3 cm???/m??? 16 - 28 cm???/m??? M-MODE Aortic Root Diameter MM 3.3 cm AV Cusp Separation MM 1.7 cm DOPPLER AV Peak Velocity 146.9 cm/s AV Peak Gradient 8.6 mmHg MV Area PHT 4.4 cm??? MR Peak Velocity 554.7 cm/s MR Peak Gradient 123.1 mmHg Mitral E Point Velocity 114.0 cm/s Mitral A Point Velocity 134.9 cm/s Mitral E to A Ratio 0.8 MV Deceleration Time 173.2 ms TR Peak Velocity 244.9 cm/s TR Peak Gradient 24.0 mmHg Right Ventricular Systolic Press 29.0 mmHg FINDINGS Left Ventricle Left ventricular ejection fraction is estimated at 30-35 %. Left ventricular cavity size normal. Moderate concentric left ventricular hypertrophy. Apical vaughn hypokinesis Right Ventricle Normal right ventricular size and function. Right ventricular systolic pressure within normal limits. Right Atrium Normal right atrial size. No right atrial thrombus or mass seen. Left Atrium Normal left atrial size. No left atrial thrombus or mass present. Mitral Valve Structurally normal mitral valve. Jgri-uf-[id number] mitral regurgitation. Aortic Valve Aortic valve not well visualized. No aortic valve stenosis or regurgitation. Tricuspid Valve Structurally normal tricuspid valve. Mild tricuspid regurgitation. Pulmonic Valve Pulmonic valve not well visualized. Pericardium No pericardial or pleural effusion. Aorta Normal size aortic root and proximal ascending aorta. CONCLUSIONS Left ventricular ejection fraction 30-35% with apical hypokinesis. Consideration of Takotsubo's cardiomyopathy versus CAD RVSP 29 Moderate increased left ventricular wall thickness Mild to moderate mitral regurgitation Mild tricuspid regurgitation Previewed by: Dr. Boone Ball DO (Electronically Signed) Final Date: 17 August 2024 12:45
[2024-08-17 12:56] LABS: Glucose,Whole Blood 347 mg/dL (70-110)
[2024-08-17] MEDS: ISOSORBIDE MONONITRATE ER 30 MG TAB.ER.24H PO SCH (12:59)
[2024-08-17] MEDS: LOSARTAN 25 MG TAB PO SCH (12:59)
[2024-08-17] MEDS: METOPROLOL TARTRATE 50 MG TAB PO SCH (12:59)
[2024-08-17] MEDS: INSULIN ASPART (NovoLOG) 100 UNIT/ML VIAL SQ SCH (12:59)
[2024-08-17] MEDS: CLOPIDOGREL 75 MG TAB PO SCH (15:18)
[2024-08-17] MEDS: PIOGLITAZONE 30 MG TAB PO SCH (15:50)
[2024-08-17] MEDS: glipiZIDE 10 MG TAB PO SCH (15:50)
[2024-08-17 16:19] LABS: Glucose,Whole Blood 268 mg/dL (70-110)
--- NOTE | 2024-08-17 17:14 | P.CNNES ---
History of Present Illness Consult date: 08/17/24 Requesting physician: Reece Abernathy Reason for Consult: paresthesia History of Present Illness: Patient is a 63-year-old right-handed female came to the hospital by ambulance yesterday at 9:25 PM for acute onset of chest pain. Patient states that she has been having on and off chest pain for almost a week. She thought that she has heartburn. However on the day of admission, she could not walk move and had to crawl to open the door for 911. The pain was located in the upper chest. Patient does have neuropathy in the feet. However she has developed new onset of numbness of the left perioral region, and left hand, for which neurology was consulted. Patient states that she has history of neuropathy in the feet up to the ankles related to her diabetes for last 4 years. However in the last 3 days, she has developed numbness of the left perioral region, and on the left lateral side of the nose and also fingers of the left hand. She has noticed that worsening of neuropathy involving both feet. Yesterday she could not feel the bottom of the feet touching the floor therefore she has to crawl. Denies any falls. She also complains of having headaches for last 3 days. Patient also having blurred vision, with seeing squiggly lines on the left side, that "comes and goes" in the last few weeks. She has some loss of peripheral vision on the left side. Patient states she has been using a walking stick for last 4 months related to her neuropathy. However her gait has worsened in the last few days, and she could not walk. Vital signs on arrival blood pressure 200/2016, pulse rate 118, temperature 99.1. Repeat blood pressure 144/87. Patient has been afebrile. Blood test cary ws normal CBC, PT PTT, normal electrolytes. BUN 27 creatinine 1.25. Hepatic panel is normal, lactate 2.6, troponin is elevated 0.056. Repeat troponin is further elevated 6.20. EKG showed sinus tachycardia with possible left atrial enlargement. Patient has history of diabetes for last 5 years. She was a light smoker, quit in . Denies any alcohol or drug use. Home medications include losartan, Lasix, Actos, glipizide, metoprolol, gabapentin 600 mg 4 times daily, Aldactone and Singulair. Patient not on any antiplatelet medication at home. Patient states she is allergic to aspirin, as she gets itching or hives. 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 Review of Systems All pertinent positive and negatives mentioned in the HPI. Patient denies any slurred speech, facial droop. Past Medical History Past Medical History: Asthma, Diabetes Mellitus, Hyperlipidemia, Hypertension History of Any Multi-Drug Resistant Organisms: None Reported Past Surgical History: Cholecystectomy, Hysterectomy Past Anesthesia/Blood Transfusion Reactions: No Reported Reaction Past Psychological History: Depression Smoking Status: Former smoker Past Alcohol Use History: None Reported Past Drug Use History: None Reported - Past Family History Mother Family Medical History: Hypertension Father Family Medical History: Myocardial Infarction ([place]) Additional Family Medical History / Comment(s): CABG Medications and Allergies Home Medications Medication Instructions Recorded Confirmed Type Furosemide [Lasix] 20 mg PO DAILY 08/17/24 08/17/24 History Gabapentin 600 mg PO QID 08/17/24 08/17/24 History Losartan Potassium [Cozaar] 100 mg PO DAILY 08/17/24 08/17/24 History Metoprolol Succinate [Toprol XL] 200 mg PO DAILY 08/17/24 08/17/24 History Montelukast [Singulair] 10 mg PO HS 08/17/24 08/17/24 History Pioglitazone [Actos] 30 mg PO DAILY 08/17/24 08/17/24 History Spironolactone [Aldactone] 100 mg PO DAILY 08/17/24 08/17/24 History Triamterene/Hydrochlorothiazid 1 tab PO DAILY 08/17/24 08/17/24 History [Triamterene-Hctz 37.5-25 mg Tb] glipiZIDE 10 mg PO BID 08/17/24 08/17/24 History Allergies Allergy/AdvReac Type Severity Reaction Status Date / Time aspirin Allergy Itching Verified 08/17/24 07:36 Penicillins Allergy Swelling/Ra Verified 08/17/24 07:36 sh/Hives/It pan Physical Examination - Vital Signs Vital Signs: Vital Signs Temp Pulse Pulse Pulse Resp BP BP 08/17/24 13:01 98.1 F 101 H 18 131/82 08/17/24 11:21 94 16 156/74 08/17/24 10:59 97 16 157/82 08/17/24 09:39 98.1 F 109 H 22 145/116 08/17/24 08:14 99 18 136/89 08/17/24 07:54 08/17/24 07:42 08/17/24 06:17 99 18 161/89 08/17/24 05:58 98.7 F 98 18 159/103 08/17/24 05:45 97 16 170/92 08/17/24 04:00 98.8 F 98 18 148/66 08/17/24 01:00 90 18 117/80 08/17/24 00:49 92 08/16/24 22:26 99 18 117/91 08/16/24 22:25 08/16/24 21:58 91 18 144/87 08/16/24 21:28 99.1 F 118 H 18 200/116 Pulse Ox 08/17/24 13:01 93 L 08/17/24 11:21 94 L 08/17/24 10:59 94 L 08/17/24 09:39 96 08/17/24 08:14 95 08/17/24 07:54 96 08/17/24 07:42 96 08/17/24 06:17 96 08/17/24 05:58 99 08/17/24 05:45 98 08/17/24 04:00 95 08/17/24 01:00 97 08/17/24 00:49 08/16/24 22:26 97 08/16/24 22:25 91 L 08/16/24 21:58 95 08/16/24 21:28 99 Intake and Output 08/16/24 08/17/24 08/17/24 22:59 06:59 14:59 Intake Total 719.673 Balance 719.673 Intake: IV 450 Intake, IV Titration 29.673 Amount Heparin Sod,Pork in 0.45% 29.673 NaCl 25,000 unit In 0.45 % NaCl 1 250ml.bag @ 8.82 UNITS/KG/HR 10.002 mls/ hr IV .Q24H [facility] Rx#: [id number] Oral 240 Other: Voiding Method Toilet # Voids 1 Weight 113.398 kg 113.398 kg Patient is a late middle-aged female, very pleasant, in no acute distress. Patient is alert awake oriented to time place and person. Patient is although fully oriented, but she believes that she is in her late 50s, although she is 63 years old. Patient knows it is the month of August. Speech and language functions are normal. Patient can name and repeat very well. No aphasia or dysarthria. Attention, concentration and fund of knowledge is adequate. On cranial nerve examination, pupils are equal, round and reacting to light, visual quevedo revealed complete left homonymous hemianopia. Extraocular muscles are intact with no nystagmus. Face is symmetric, tongue protrudes to the midline. Palatal elevation and sensation normal, hearing and shoulder shrug normal, facial sensation normal. On muscle strength testing, there is left pronator drift and the left arm droops down about 45 degree. It does not hit the bed. Strength is normal in arms and legs distally and proximally. There is no leg droop. Deep tendon reflexes are symmetric trace to 1+ and plantars are flat bilaterally. Sensory to touch is equal with no neglect on double simultaneous stimulation. Cerebellar function showed significant ataxia for icnjzj-dy-wbxh, and bxez-yt-amyj testing only on the left side. Tone and bulk of muscles normal. Gait deferred.. On general examination, there is no carotid bruit or murmur, S1-S2 audible. Chest is clear on consultation. Abdomen is soft nontender. No organomegaly, bowel sounds present. Peripheral pulses are present. No peripheral edema. Results - Laboratory Findings CBC and BMP: 08/17/24 05:25 08/17/24 05:25 Abnormal Lab Findings: Abnormal Labs 08/16/24 08/16/24 08/16/24 21:49 21:58 21:58 WBC Hgb 16.4 H Neutrophils # PT 9.8 L Chloride Carbon Dioxide BUN Creatinine Glucose POC Glucose (mg/dL) 363 H Plasma Lactic Acid Jerome Phosphorus AST Troponin I 08/16/24 08/16/24 08/16/24 21:58 21:58 21:58 WBC Hgb Neutrophils # PT Chloride Carbon Dioxide 18 L BUN 27 H Creatinine 1.25 H Glucose 356 H POC Glucose (mg/dL) Plasma Lactic Acid Jerome 2.6 H* Phosphorus 5.1 H AST Troponin I 0.056 H* 08/17/24 08/17/24 08/17/24 01:44 05:25 05:25 WBC 12.4 H Hgb Neutrophils # 9.9 H PT Chloride 108 H Carbon Dioxide 21 L BUN 23 H Creatinine Glucose 404 H POC Glucose (mg/dL) Plasma Lactic Acid Jerome 2.5 H* Phosphorus AST 51 H Troponin I 08/17/24 08/17/24 08/17/24 05:25 06:13 06:58 WBC Hgb Neutrophils # PT Chloride Carbon Dioxide BUN Creatinine Glucose POC Glucose (mg/dL) 418 H 389 H Plasma Lactic Acid Jerome Phosphorus AST Troponin I 4.960 H* 08/17/24 08/17/24 08/17/24 07:39 07:39 11:25 WBC Hgb Neutrophils # PT Chloride Carbon Dioxide BUN Creatinine Glucose POC Glucose (mg/dL) 317 H Plasma Lactic Acid Ejrome 3.2 H* Phosphorus AST Troponin I 6.200 H* 08/17/24 12:51 WBC Hgb Neutrophils # PT Chloride Carbon Dioxide BUN Creatinine Glucose POC Glucose (mg/dL) 347 H Plasma Lactic Acid Jerome Phosphorus AST Troponin I Assessment and Plan Assessment: * Probable subacute ischemic stroke, manifesting with left homonymous hemianopia and left hemiataxia. Patient's current NIH score scale is 6. Patient is not a candidate for TNK, as she came outside the window for TNK. Her symptoms have been present for last several days. * Acute non-STEMI * New onset headache, unclear cause. * Hypertension * Diabetes * Hyperlipidemia * Obesity * History of essential tremor. Plan: * CT head reported chronic, small vessel ischemic change in the white matter, particularly in the right periventricular region. On my review, could be perhaps late subacute. Patient also has left homonymous hemianopia, which w ould not be explained from this periventricular lesion. Need to rule out another acute ischemic CVA involving the left cerebellum and or right occipital region. Rule out embolic events from cardiac source. * CTA of head and neck revealed no dissection, occlusion or stenosis of greater than 50%. CTA of the head showed no evidence of aneurysm, severe stenosis or major intracranial branch occlusion. Mild increased lung density in the posterior aspects of both upper lung quevedo. This may represent some diffuse dependent mild atelectasis. * We will check MRI of the brain evaluate for acute/subacute stroke. * Patient has been started on heparin IV. * Patient cannot take aspirin because of allergy. Start Plavix 75 mg daily when cleared from cardiothoracic standpoint. Okay to hold off while patient on IV heparin, as patient is at risk for cardio-embolic events. * Patient has triple-vessel disease, and is being considered for possible coronary artery bypass surgery. * 2D echo revealed LVEF 30 to 35%. Moderate concentric LVH. Apical vaughn hypokinetic. Normal right atrial size. Normal left atrial size. No thrombus. Mild to moderate MR. Mild TR. * Fasting a.m. lipid panel. Patient started on Lipitor 80 mg daily. Patient not on statins at home. * Hemoglobin A1c * Telemetry monitoring, rule out PAF. * DVT prophylaxis: Patient on heparin IV. * Neurochecks every 2 hours. * Neurology will follow clinically. * Thank you for the consult. Time with Patient: Greater than 30
[2024-08-17] MEDS: GABAPENTIN 300 MG CAP PO SCH (17:29)
--- NOTE | 2024-08-17 18:51 | P.GSCN ---
History of Present Illness Consult date: 08/17/24 Reason for Consult: Multivessel coronary artery disease evaluation for myocardial revascularization Requesting physician: Shakila Wiggins History of present illness: This is a 63-year-old female patient who follows an outpatient basis with Dr. Gume Johnson for her primary care. She has a past medical history sig nificant for hypertension, hyperlipidemia, diabetes mellitus type 2, diabetic neuropathy, asthma, hypothyroid, morbid obesity with a BMI of 41.6 kg/m, and remote history of nicotine dependence quit over 40 years ago. The patient presented [facility] via EMS on August 16, 2024 with complaints of a what she describes as heart burn with no relief after taking an antacid, she also complained of headache, weakness to her bilateral lower extremities and unable to ambulate, and visual disturbances to her left eye. The patient reports when the visual disturbances happened she had to crawl to the door to let her dogs in the house. She denies any recent fever, chills, nausea, vomiting, diarrhea, constipation, chest pain, chest pressure, presyncope or syncope. Subsequently due to her presenting symptoms a CTA of her head/neck was completed in the emergency department which showed no acute findings. A twelve-lead EKG was completed which showed sinus tachycardia, nonspecific T wave abnormality with a heart rate of 113 bpm. Initial laboratory results showed a WBC count 9.2, hemoglobin 16.4, hematocrit 45.5, platelets 235, PT 9.8, INR 0.9, PTT 22.1, D-dimer 0.34, sodium 138, potassium 4.6, CO2 18, BUN 27, creatinine 1.25, glucose 356, plasmic lactic acid 2.6, calcium 9.4, phosphorus 5.1, magnesium 1.8, and serial troponins were elevated at 0.056 and 7.220. Due to the elevated troponins cardiology was consulted and a transthoracic 2D echocardiogram was completed which demonstrated an ejection fraction estimated at 30 to 35%, left ventricular cavity normal size, moderate concentric left ventricular hypertrophy, apical wall hypokinesis, mild to moderate mitral valve regurgitation, mild tricuspid valve regurgitation and a normal size aortic root and proximal ascending aorta. For further evaluation the patient was recommended to undergo a cardiac catheterization which was completed today 08/17/[address] Bello. The heart catheterization revealed severe triple- vessel coronary artery disease with a 99% proximal stenosis to her left anterior descending coronary artery, an 80 to 90% stenosis to her diagonal branch, a 90% stenosis to her circumflex coronary artery, a long segment of narrowing extending from the proximal to mid right coronary artery with extensive collaterals from the right coronary artery to the left coronary artery. Subsequently due to the findings on the cardiac catheterization a consult was placed to Dr. Lai Leon from cardiothoracic surgery for further evaluation and treatment recommendations including myocardial revascularization surgery. The patient denies any complaints of chest pain or chest pressure, she does continue to complain of some visual disturbances to her left eye and reports that she continues to have a headache. Review of Systems A review of systems was completed was negative except as mentioned in the HPI. Past Medical History Past Medical History: Asthma, Diabetes Mellitus, Hyperlipidemia, Hypertension, Thyroid Disorder Additional Past Medical History / Comment(s): Peripheral neuropathy. Morbid obesity with a BMI of 41.6 kg/m. History of Any Multi-Drug Resistant Organisms: None Reported Past Surgical History: Cholecystectomy, Hysterectomy Past Anesthesia/Blood Transfusion Reactions: No Reported Reaction Past Psychological History: Depression Smoking Status: Former smoker (Quit smoking over 40 years ago) Past Alcohol Use History: None Reported Past Drug Use History: None Reported - Past Family History Mother Family Medical History: Hypertension Additional Family Medical History / Comment(s): Pulmonary hypertension, scleroderma, chronic kidney disease Father Family Medical History: Myocardial Infarction (MS) Additional Family Medical History / Comment(s): CABG surgery in his mid 60s Medications and Allergies Home Medications Medication Instructions Recorded Confirmed Type Furosemide [Lasix] 20 mg PO DAILY 08/17/24 08/17/24 History Gabapentin 600 mg PO QID 08/17/24 08/17/24 History Losartan Potassium [Cozaar] 100 mg PO DAILY 08/17/24 08/17/24 History Metoprolol Succinate [Toprol XL] 200 mg PO DAILY 08/17/24 08/17/24 History Montelukast [Singulair] 10 mg PO HS 08/17/24 08/17/24 History Pioglitazone [Actos] 30 mg PO DAILY 08/17/24 08/17/24 History Spironolactone [Aldactone] 100 mg PO DAILY 08/17/24 08/17/24 History Triamterene/Hydrochlorothiazid 1 tab PO DAILY 08/17/24 08/17/24 History [Triamterene-Hctz 37.5-25 mg Tb] glipiZIDE 10 mg PO BID 08/17/24 08/17/24 History Allergies Allergy/AdvReac Type Severity Reaction Status Date / Time aspirin Allergy Itching Verified 08/17/24 07:36 Penicillins Allergy Swelling/Ra Verified 08/17/24 07:36 sh/Hives/It pan Surgical - Exam Vital Signs Temp Pulse Resp BP Pulse Ox 99.1 F 118 H 18 200/116 99 08/16/24 21:28 08/16/24 21:28 08/16/24 21:28 08/16/24 21:28 08/16/24 21:28 - General well developed, well nourished, no distress, moderate pain (Complaining of headache), chronically ill, obese - Eyes PERRL, normal ocular movement, no pale, no icteric - ENT normal pinna, normal nares, normal mucosa, no hearing loss, no congestion - Neck Neck is supple, no lymphadenopathy. no masses, no bruits, trachea midline, no venous distension - Respiratory Lung sounds essentially clear throughout, diminished to her bilateral bases. No wheezes, rhonchi or crackles. Respirations are symmetrical and nonlabored. - Cardiovascular Regular rhythm and rate. S1 and S2 present, negative for S3, gallop or murmur. - Abdomen Abdomen is soft, nontender and nondistended. Obese. Active bowel sounds all 4 abdominal quadrants. No guarding rigidity. No organomegaly appreciated. - Genitourinary Deferred - Rectum Deferred - Integumentary Skin is warm and dry. No clubbing or cyanosis is present. Several scattered tattoos. no rash, no growths, no abnormal pigmentation - Neurologic Generalized weakness to her bilateral lower extremities, left homonymous h emianopia - Musculoskeletal Moves all 4 extremities, equal strength to her bilateral upper extremities generalized weakness to her bilateral lower extremities. - Psychiatric oriented to time, oriented to person, oriented to place, speech is normal, memory intact Results - Labs 08/17/24 05:25 08/17/24 05:25 Abnormal Lab Results - Last 24 Hours (Table) 08/16/24 08/16/24 08/16/24 Range/Units 21:49 21:58 21:58 WBC (3.8-10.6) k/uL Hgb 16.4 H (11.4-16.0) gm/dL Neutrophils # (1.3-7.7) k/uL PT 9.8 L (10.0-12.5) sec Chloride (98-107) mmol/L Carbon Dioxide (22-30) mmol/L BUN (7-17) mg/dL Creatinine (0.52-1.04) mg/dL Glucose (74-99) mg/dL POC Glucose (mg/dL) 363 H (70-110) mg/dL Plasma Lactic Acid Jerome (0.7-2.0) mmol/L Phosphorus (2.5-4.5) mg/dL AST (14-36) U/L Troponin I (0.000-0.034) ng/mL 08/16/24 08/16/24 08/16/24 Range/Units 21:58 21:58 21:58 WBC (3.8-10.6) k/uL Hgb (11.4-16.0) gm/dL Neutrophils # (1.3-7.7) k/uL PT (10.0-12.5) sec Chloride (98-107) mmol/L Carbon Dioxide 18 L (22-30) mmol/L BUN 27 H (7-17) mg/dL Creatinine 1.25 H (0.52-1.04) mg/dL Glucose 356 H (74-99) mg/dL POC Glucose (mg/dL) (70-110) mg/dL Plasma Lactic Acid Jerome 2.6 H* (0.7-2.0) mmol/L Phosphorus 5.1 H (2.5-4.5) mg/dL AST (14-36) U/L Troponin I 0.056 H* (0.000-0.034) ng/mL 08/17/24 08/17/24 08/17/24 Range/Units 01:44 05:25 05:25 WBC 12.4 H (3.8-10.6) k/uL Hgb (11.4-16.0) gm/dL Neutrophils # 9.9 H (1.3-7.7) k/uL PT (10.0-12.5) sec Chloride 108 H (98-107) mmol/L Carbon Dioxide 21 L (22-30) mmol/L BUN 23 H (7-17) mg/dL Creatinine (0.52-1.04) mg/dL Glucose 404 H (74-99) mg/dL POC Glucose (mg/dL) (70-110) mg/dL Plasma Lactic Acid Jerome 2.5 H* (0.7-2.0) mmol/L Phosphorus (2.5-4.5) mg/dL AST 51 H (14-36) U/L Troponin I (0.000-0.034) ng/mL 08/17/24 08/17/24 08/17/24 Range/Units 05:25 06:13 06:58 WBC (3.8-10.6) k/uL Hgb (11.4-16.0) gm/dL Neutrophils # (1.3-7.7) k/uL PT (10.0-12.5) sec Chloride (98-107) mmol/L Carbon Dioxide (22-30) mmol/L BUN (7-17) mg/dL Creatinine (0.52-1.04) mg/dL Glucose (74-99) mg/dL POC Glucose (mg/dL) 418 H 389 H (70-110) mg/dL Plasma Lactic Acid Jerome (0.7-2.0) mmol/L Phosphorus (2.5-4.5) mg/dL AST (14-36) U/L Troponin I 4.960 H* (0.000-0.034) ng/mL 08/17/24 08/17/24 08/17/24 Range/Units 07:39 07:39 11:25 WBC (3.8-10.6) k/uL Hgb (11.4-16.0) gm/dL Neutrophils # (1.3-7.7) k/uL PT (10.0-12.5) sec Chloride (98-107) mmol/L Carbon Dioxide (22-30) mmol/L BUN (7-17) mg/dL Creatinine (0.52-1.04) mg/dL Glucose (74-99) mg/dL POC Glucose (mg/dL) 317 H (70-110) mg/dL Plasma Lactic Acid Jerome 3.2 H* (0.7-2.0) mmol/L Phosphorus (2.5-4.5) mg/dL AST (14-36) U/L Troponin I 6.200 H* (0.000-0.034) ng/mL 08/17/24 08/17/24 08/17/24 Range/Units 12:51 14:40 14:40 WBC (3.8-10.6) k/uL Hgb (11.4-16.0) gm/dL Neutrophils # (1.3-7.7) k/uL PT (10.0-12.5) sec Chloride (98-107) mmol/L Carbon Dioxide (22-30) mmol/L BUN (7-17) mg/dL Creatinine (0.52-1.04) mg/dL Glucose (74-99) mg/dL POC Glucose (mg/dL) 347 H (70-110) mg/dL Plasma Lactic Acid Jerome 4.3 H* (0.7-2.0) mmol/L Phosphorus (2.5-4.5) mg/dL AST (14-36) U/L Troponin I 7.220 H* (0.000-0.034) ng/mL 08/17/24 Range/Units 16:17 WBC (3.8-10.6) k/uL Hgb (11.4-16.0) gm/dL Neutrophils # (1.3-7.7) k/uL PT (10.0-12.5) sec Chloride (98-107) mmol/L Carbon Dioxide (22-30) mmol/L BUN (7-17) mg/dL Creatinine (0.52-1.04) mg/dL Glucose (74-99) mg/dL POC Glucose (mg/dL) 268 H (70-110) mg/dL Plasma Lactic Acid Jerome (0.7-2.0) mmol/L Phosphorus (2.5-4.5) mg/dL AST (14-36) U/L Troponin I (0.000-0.034) ng/mL Diabetes panel 08/16/24 08/17/24 Range/Units 21:58 05:25 Sodium 138 137 (137-145) mmol/L Potassium 4.6 4.9 (3.5-5.1) mmol/L Chloride 107 108 H (98-107) mmol/L Carbon Dioxide 18 L 21 L (22-30) mmol/L BUN 27 H 23 H (7-17) mg/dL Creatinine 1.25 H 0.93 (0.52-1.04) mg/dL Glucose 356 H 404 H (74-99) mg/dL Calcium 9.4 9.1 (8.4-10.2) mg/dL AST 27 51 H (14-36) U/L ALT 23 25 (4-34) U/L Alkaline Phosphatase 63 59 (38-126) U/L Total Protein 7.3 7.0 (6.3-8.2) g/dL Albumin 4.3 4.0 (3.5-5.0) g/dL Calcium panel 08/16/24 08/17/24 Range/Units 21:58 05:25 Calcium 9.4 9.1 (8.4-10.2) mg/dL Phosphorus 5.1 H 4.3 (2.5-4.5) mg/dL Albumin 4.3 4.0 (3.5-5.0) g/dL Pituitary panel 08/16/24 08/17/24 Range/Units 21:58 05:25 Sodium 138 137 (137-145) mmol/L Potassium 4.6 4.9 (3.5-5.1) mmol/L Chloride 107 108 H (98-107) mmol/L Carbon Dioxide 18 L 21 L (22-30) mmol/L BUN 27 H 23 H (7-17) mg/dL Creatinine 1.25 H 0.93 (0.52-1.04) mg/dL Glucose 356 H 404 H (74-99) mg/dL Calcium 9.4 9.1 (8.4-10.2) mg/dL Adrenal panel 08/16/24 08/17/24 Range/Units 21:58 05:25 Sodium 138 137 (137-145) mmol/L Potassium 4.6 4.9 (3.5-5.1) mmol/L Chloride 107 108 H (98-107) mmol/L Carbon Dioxide 18 L 21 L (22-30) mmol/L BUN 27 H 23 H (7-17) mg/dL Creatinine 1.25 H 0.93 (0.52-1.04) mg/dL Glucose 356 H 404 H (74-99) mg/dL Calcium 9.4 9.1 (8.4-10.2) mg/dL Total Bilirubin 0.6 0.5 (0.2-1.3) mg/dL AST 27 51 H (14-36) U/L ALT 23 25 (4-34) U/L Alkaline Phosphatase 63 59 (38-126) U/L Total Protein 7.3 7.0 (6.3-8.2) g/dL Albumin 4.3 4.0 (3.5-5.0) g/dL - Imaging Additional studies: Transthoracic 2D echocardiogram results reviewed, cardiac catheterization films reviewed by Dr. Leon Assessment and Plan Assessment: Multivessel coronary artery disease Non-ST elevated myocardial infarction this admission Probable subacute ischemic stroke, continuing to have left homonymous hemianopia Acute onset of headache History of hypertension History of hyperlipidemia Diabetes mellitus type 2 Morbid obesity with a BMI of 41.6 kg/m History of asthma Hypothyroid Remote history of nicotine dependence quit smoking over 40 years ago Plan: The patient was seen and examined at her bedside today August 17, 2024. Her chart and diagnostics were reviewed. Dr. Lai Leon discussed with the patient the findings on her cardiac catheterization films. The patient is being started on Plavix for a subacute stroke by neurology. The patient is nonambulatory at this time, and would be considered a high risk surgical candidate due to the subacute stroke and being nonambulatory. If the patient should recover from the stroke she could be reevaluated in the future for myocardial vascularization surgery. Continue to maximize medical management, medical management other comorbidities per primary care service, cardiology service and neurology service. Thank you for this consult and we will continue to follow the patient on an as-needed basis. Please reconsult us for further questions regarding myocardial vascularization surgery. Thank you Dr. Bello for this consult. I have personally seen and examined the patient, performed the documentation and the assessment and plan as written. Number of minutes spent on the visit: 30. DEWAYNE Quiroz
[2024-08-17 20:05] LABS: Glucose,Whole Blood 263 mg/dL (70-110)
[2024-08-17] MEDS: MONTELUKAST 10 MG TAB PO SCH (20:36)
[2024-08-17] MEDS: ATORVASTATIN 80 MG TAB PO SCH (20:36)
--- NOTE | 2024-08-18 00:32 | HP ---
HISTORY AND PHYSICAL CHIEF COMPLAINTS: Headache, chest discomfort, and as well as paresthesias. HISTORY OF PRESENT ILLNESS: This is a 63-year-old woman with a past medical history of multiple medical problems including asthma, diabetes, was admitted with chest discomfort, heartburns, headaches, paresthesias, and multiple symptomatology. The evaluation in the ER showed troponin elevated up to 6.20 indicating acute myocardial infarction. The EKG showed non- progression of R-waves in the EKG. The patient underwent a 2D echocardiogram by Cardiology, which showed ejection fraction of 30% to 35%. with apical hypokinesis. The patient also had a cardiac catheterization, which showed severe three-vessel disease. Cardiothoracic Surgery has been consulted. There is no history of any fever, rigors, or chills. PAST MEDICAL HISTORY: Asthma, diabetes mellitus. Rest of the history and rest of the chart is also reviewed. HOME MEDICATIONS: Reviewed include triamterene, hydrochlorothiazide. Doses and rest of medications noted. ALLERGIES: Aspirin. FAMILY HISTORY: History of hypertension and CABG. SOCIAL HISTORY: Previous history of smoking. REVIEW OF SYSTEMS: Fourteen-point review is negative except as mentioned earlier. PHYSICAL EXAMINATION: VITAL SIGNS: Pulse is 101, blood pressure 131/82, respirations 18. HEENT: Conjunctivae normal. NECK: No JVD. CARDIOVASCULAR: S1, S2. RESPIRATIONS: Breath sounds diminished at the bases. A few rhonchi. No crackles. ABDOMEN: Soft, nontender. LEGS: No edema. NERVOUS SYSTEM: Nonfocal. LABORATORY DATA: WBC 12.4, rest of the labs are noted. ASSESSMENT: 1. Acute [id number]-elevation myocardial infarction, status post cardiac catheterization and three-vessel coronary artery disease. 2. Diabetes mellitus type 2, uncontrolled with hyperglycemia. 3. Ejection fraction 30% to 35%. with possible cardiomyopathy. 4. Asthma history. 5. Hypertension. 6. Hyperlipidemia. 7. Multiple complex medical issues. RECOMMENDATIONS AND DISCUSSION: This is a 63-year-old woman, who presented with multiple complex medical issues, we will monitor the patient closely. Continue the current management and continue symptomatic treatment. Otherwise, at this time, I would recommend antiplatelet agents and closely follow with Cardiology and Cardiothoracic Surgery. Resume home medications. Monitor blood sugars closely. Blood sugars are still elevated. The patient might need IV insulin drip. Further recommendations to follow. See orders for further details. MMODL / IJN: [id number] /
[2024-08-18 05:52] LABS: Glucose,Whole Blood 252 mg/dL (70-110)
[2024-08-18] MEDS: INSULIN DETEMIR (LEVEMIR) 100 UNIT/ML SYR SQ SCH (06:37)
[2024-08-18 08:11] LABS: Basophils # (A) 0.1 k/uL (0-0.2); Basophils % (A) 1 %; Eosinophils # (A) 0.1 k/uL (0-0.7); Eosinophils % (A) 1 %; HCT 40.6 % (34.0-46.0); HGB 13.3 gm/dL (11.4-16.0); Lymphocytes # (A) 2.6 k/uL (1.0-4.8); Lymphocytes % (A) 25 %; MCH 30.7 pg (25.0-35.0); MCHC 32.9 g/dL (31.0-37.0); MCV 93.5 fL (80.0-100.0); Mean Platelet Volume 9.1; Monocytes # (A) 0.6 k/uL (0-1.0); Monocytes % (A) 6 %; Neutrophils # (A) 6.9 k/uL (1.3-7.7); Neutrophils % (A) 66 %; Platelet Count 241 k/uL (150-450); RBC 4.34 m/uL (3.80-5.40); RDW 12.5 % (11.5-15.5); WBC 10.5 k/uL (3.8-10.6)
[2024-08-18 08:33] LABS: African American GFR (CKD) >90 (>60 ml/min/1.73 sqM); Anion Gap 6 mmol/L; Blood Urea Nitrogen 16 mg/dL (7-17); Carbon Dioxide 21 mmol/L (22-30); Chloride 112 mmol/L (98-107); Glucose 222 mg/dL (74-99); Non-African American GFR(CKD) >90 (>60 ml/min/1.73 sqM); Potassium 4.4 mmol/L (3.5-5.1); Sodium 139 mmol/L (137-145)
[2024-08-18] MEDS ORDERED: ISOSORBIDE MONONITRATE ER 30 MG TAB.ER.24H PO SCH (09:00)
[2024-08-18] MEDS ORDERED: ASPIRIN 81 MG PO SCH (09:00)
[2024-08-18] MEDS: METOPROLOL SUCCINATE (ER) 100 MG TAB.ER.24H PO SCH (10:08)
[2024-08-18] MEDS: FUROSEMIDE 20 MG TAB PO SCH (10:08)
[2024-08-18] MEDS: HEPARIN SODIUM,PORCINE 5,000 UNIT/ML 1 ML VIAL SQ SCH (10:09)
[2024-08-18 11:03] LABS: Glucose,Whole Blood 218 mg/dL (70-110)
--- NOTE | 2024-08-18 13:03 | P.PN ---
Subjective HISTORY OF PRESENT ILLNESS: This is a 63-year-old female who does not follow with a angle shear set up operator on an outpatient basis. Patient is admitted to the hospital secondary to non-STEMI. Patient underwent cardiac catheterization yesterday with Dr. Bello revealing severe triple-vessel coronary artery disease. Echocardiogram completed revealing ejection fraction 30 to 35%, apical wall hypokinesis, mild to moderate mitral regurgitation, and mild tricuspid regurgitation. Patient was evaluated by neurology yesterday with possibility of subacute ischemic stroke. Patient's IV heparin has since been discontinued. She has been evaluated by CT surgery and deemed not to be a surgical candidate at this time. Plan is for patient to recover from her acute issues and will be reevaluated in the future for CABG. Patient examined this morning at the bedside. She currently denies any chest pain or pressure. She denies any shortness of breath. She states that her vision and headache are improving compared to yesterday. Vital signs are stable. Telemetry reveals sinus mechanism. PHYSICAL EXAM: VITAL SIGNS: Reviewed. GENERAL: Well-developed in no acute distress. NECK: Supple. No JVD or thyromegaly LUNGS: Respirations even and unlabored. Lungs essentially clear to auscultation bilaterally. HEART: Regular rate and rhythm. S1 and S2 heard. EXTREMITIES: Normal range of motion. No clubbing or cyanosis. Peripheral pulses intact. No lower extremity edema ASSESSMENT: Non-STEMI, status post cardiac catheterization revealing severe triple-vessel coronary artery disease, high risk for CABG secondary to subacute CVA and being nonambulatory Ischemic cardiomyopathy, 30 to 35% Suspected subacute ischemic stroke Headache Hypertension Hyperlipidemia Diabetes Obesity: BMI 41.1 Former nicotine dependence Allergy to aspirin PLAN: She has been evaluated by CT surgery and deemed not to be a surgical candidate at this time due to patient being nonambulatory and suspected subacute CVA. Plan is for patient to recover from her acute issues and will be reevaluated in the future for CABG Discontinue IV heparin Patient has been started on Plavix 75 mg daily. She is unable to take aspirin secondary to allergy of hives and itching. Continue high intensity statin. LDL goal less than 70. Patient currently prescribed metoprolol succinate and metoprolol tartrate for unknown reason. Discontinue metoprolol tartrate. Continue metoprolol succinate but decrease dose to 100mg daily. Continue telemetry monitoring Neurology following. MRI ordered. Await results. Further recommendations pending patient course Patient currently does not follow outpatient with a angle shear set up operator. Postdischarge, patient will follow-up in the office with Dr. Bello Nurse practitioner note has been reviewed by physician. Signing provider agrees with the documented findings, assessment, and plan of care documented by MANAGER COSMETIC as a scribe. Objective - Vital Signs Vital signs: Vital Signs Temp 98.2 F 08/18/24 10:57 Pulse 77 08/18/24 10:57 Resp 16 08/18/24 08:00 BP 116/74 08/18/24 10:57 Pulse Ox 95 08/18/24 10:57 FiO2 Intake & Output 08/17/24 08/18/24 08/18/24 18:59 06:59 18:59 Intake Total 719.673 188.514 Output Total 700 Balance 719.673 -511.486 Weight 113.398 kg 112 kg Intake: IV 450 Intake, IV Titration 29.673 68.514 Amount Heparin Sod,Pork in 0.45% 29.673 68.514 NaCl 25,000 unit In 0.45 % NaCl 1 250ml.bag @ 8.82 UNITS/KG/HR 10.002 mls/ hr IV .Q24H JOANIE Rx#: [id number] Oral 240 120 Output: Urine 700 Other: Voiding Method Toilet Toilet Toilet # Voids 1 - Labs CBC & Chem 7: 08/18/24 07:45 08/18/24 07:45 Labs: Abnormal Lab Results - Last 24 Hours (Table) 08/17/24 08/17/24 08/17/24 Range/Units 12:51 14:40 14:40 APTT (22.0-30.0) sec Chloride (98-107) mmol/L Carbon Dioxide (22-30) mmol/L Glucose (74-99) mg/dL POC Glucose (mg/dL) 347 H (70-110) mg/dL Hemoglobin A1c (<=6.0) % Plasma Lactic Acid Jerome 4.3 H* (0.7-2.0) mmol/L Troponin I 7.220 H* (0.000-0.034) ng/mL 08/17/24 08/17/24 08/17/24 Range/Units 16:17 17:56 20:04 APTT (22.0-30.0) sec Chloride (98-107) mmol/L Carbon Dioxide (22-30) mmol/L Glucose (74-99) mg/dL POC Glucose (mg/dL) 268 H 263 H (70-110) mg/dL Hemoglobin A1c (<=6.0) % Plasma Lactic Acid Jerome 2.5 H* (0.7-2.0) mmol/L Troponin I (0.000-0.034) ng/mL 08/18/24 08/18/24 08/18/24 Range/Units 05:50 07:45 07:45 APTT (22.0-30.0) sec Chloride 112 H (98-107) mmol/L Carbon Dioxide 21 L (22-30) mmol/L Glucose 222 H (74-99) mg/dL POC Glucose (mg/dL) 252 H (70-110) mg/dL Hemoglobin A1c 12.7 H (<=6.0) % Plasma Lactic Acid Jerome (0.7-2.0) mmol/L Troponin I (0.000-0.034) ng/mL 08/18/24 08/18/24 Range/Units 07:45 11:00 APTT 21.8 L (22.0-30.0) sec Chloride (98-107) mmol/L Carbon Dioxide (22-30) mmol/L Glucose (74-99) mg/dL POC Glucose (mg/dL) 218 H (70-110) mg/dL Hemoglobin A1c (<=6.0) % Plasma Lactic Acid Jerome (0.7-2.0) mmol/L Troponin I (0.000-0.034) ng/mL
[2024-08-18 15:30] LABS: Chol/HDL Ratio 8.14 Ratio
--- NOTE | 2024-08-18 15:40 | P.PN ---
Progress Note - Text Progress Note Date: 08/18/24 Presenting complaint: Tired Hospital course: Admitted with non-STEMI. Cardiac catheterization with Dr. Rogelio Bello showed severe triple-vessel disease. 2D echo showed EF of 30-35%. Patient also felt to have subacute ischemic stroke as per neurology. Hence IV heparin was discontinued. Patient was seen by cardiothoracic team patient not felt to be a candidate for surgery at this time. May be down the road. August 18: Up in recliner. Some improvement in the vision and speech. Eating fair. Decree sensation on the left side. Some left-sided weakness. Patient sister at the bedside. Feels her speech is slightly off. Pending MRI. Seen by PT OT. Poor standing balance. For IP rehab Active Medications Acetaminophen (Acetaminophen Tab 325 Mg Tab) 650 mg PO Q6HR PRN PRN Reason: Fever and/or Mild Pain Last Admin: 08/18/24 10:11 Dose: 650 mg Albuterol/Ipratropium (Ipratropium-Albuterol 3 Ml Neb) 3 ml INHALATION RT-QID PRN PRN Reason: Shortness Of Breath Or Wheezing Alprazolam (Alprazolam 0.25 Mg Tab) 0.25 mg PO Q6HR PRN PRN Reason: Mild Anxiety Alprazolam (Alprazolam 0.5 Mg Tab) 0.5 mg PO Q6HR PRN PRN Reason: Moderate Anxiety Atorvastatin Calcium (Atorvastatin 80 Mg Tab) 80 mg PO HS [facility] Last Admin: 08/17/24 20:36 Dose: 80 mg Clopidogrel Bisulfate (Clopidogrel 75 Mg Tab) 75 mg PO DAILY [facility] Last Admin: 08/18/24 10:08 Dose: 75 mg Dextrose/Water (Dextrose 50% Syringe 50 Ml) 25 ml IVP PER PROTOCOL PRN; Protocol PRN Reason: Hypoglycemia Dextrose/Water (Dextrose 50% Syringe 50 Ml) 50 ml IVP PER PROTOCOL PRN; Protocol PRN Reason: Hypoglycemia Furosemide (Furosemide 20 Mg Tab) 20 mg PO DAILY [facility] Last Admin: 08/18/24 10:08 Dose: 20 mg Gabapentin (Gabapentin 300 Mg Cap) 600 mg PO QID [facility] Last Admin: 08/18/24 12:43 Dose: 600 mg Glipizide (Glipizide 10 Mg Tab) 10 mg PO BID [facility] Last Admin: 08/18/24 10:08 Dose: 10 mg Heparin Sodium (Porcine) (Heparin Sodium,Porcine 5,000 Unit/Ml 1 Ml Vial) 5,000 unit SQ Q12HR [facility] Last Admin: 08/18/24 10:09 Dose: 5,000 unit Sodium Chloride 1,000 ml/ IV (Solution) 1,000 mls @ 113.398 mls/hr IV .Q8H50M [facility] Last Admin: 08/18/24 04:17 Dose: Not Given Insulin Aspart (Insulin Aspart (Novolog) 100 Unit/Ml Vial) 0 unit SQ ACHS [facility]; Protocol Last Admin: 08/18/24 12:43 Dose: 4 unit Insulin Detemir (Insulin Detemir (Levemir) 100 Unit/Ml Syr) 10 unit SQ DAILY@0700 [facility] Last Admin: 08/18/24 06:37 Dose: 10 unit Isosorbide Mononitrate (Isosorbide Mononitrate Er 30 Mg Tab.Er.24h) 30 mg PO DAILY [facility] Last Admin: 08/18/24 10:08 Dose: 30 mg Losartan Potassium (Losartan 25 Mg Tab) 25 mg PO DAILY [facility] Last Admin: 08/18/24 10:08 Dose: 25 mg Metoprolol Succinate (Metoprolol Succinate (Er) 100 Mg Tab.Er.24h) 100 mg PO DAILY [facility] Miscellaneous Information (Rx Info: Iv Contrast Was Given 1 Each Misc) 1 each MISCELLANE DAILY PRN PRN Reason: Per Protocol Stop: 08/19/24 10:46 Montelukast Sodium (Montelukast 10 Mg Tab) 10 mg PO [facility] Last Admin: 08/17/24 20:36 Dose: 10 mg Morphine Sulfate (Morphine Sulfate 4 Mg/Ml Syringe) 4 mg IVP Q4HR PRN PRN Reason: Pain Last Admin: 08/17/24 21:59 Dose: 4 mg Naloxone HCl (Naloxone 0.4 Mg/Ml 1 Ml Vial) 0.2 mg IV Q2M PRN PRN Reason: Opioid Reversal Nitroglycerin (Nitroglycerin Sl Tabs 0.4 Mg Tab) 0.4 mg SUBLINGUAL Q5M PRN PRN Reason: Chest Pain Ondansetron HCl (Ondansetron 4 Mg/2 Ml Vial) 4 mg IVP Q8HR PRN PRN Reason: Nausea And Vomiting Pioglitazone HCl (Pioglitazone 30 Mg Tab) 30 mg PO DAILY [facility] Last Admin: 08/18/24 10:07 Dose: 30 mg On examination: VITAL SIGNS: [98.2, 77, 16, 116 x 74, 95% room] GENERAL APPEARANCE: BMI 41.1, reclining in recliner HEENT: Normal external appearance of nose and ear. Oral cavity normal EYES: Pupils equal. Conjunctiva normal. NECK: JVD not raised. Mass not palpable. RESPIRATORY: Respiratory effort normal. Lungs clear to auscultation. CARDIOVASCULAR: First and second sounds normal. No edema. ABDOMEN: Soft. Liver and spleen not palpable. No tenderness. No mass palpable. PSYCHIATRY: Alert and oriented x3. Mood and affect normal. NEUROLOGICAL: Left facial numbness, some weakness on the left side. Decreased coordination of the left arm. Speech slightly slow INVESTIGATIONS, reviewed in the clinical context: August 18: White count 10.5 hemoglobin 13.3 platelets 241 sodium 139 BUN 16 creatinine 0.7 EKG tracing: Sinus tachycardia. Nonspecific T wave changes CT angio head and neck with IV contrast: Nothing acute reported 2D echocardiogram: EF 30-35%. Moderate LVH. Apical wall hypokinesis. Mild to moderate MR. Cardiac catheterization: Severe triple-vessel disease Assessment plan: -Non--STEMI. Patient underwent cardiac catheterization by Dr. Rosalie Bello. Severe triple-vessel CAD. Patient felt to be high risk for bypass because of subacute CVA. Plavix. Toprol-XL. Cozaar. -Severe triple-vessel disease per cardiac catheterization. High risk for bypass because of subacute stroke. Being followed by cardiothoracic team -Subacute ischemic stroke manifesting left homonymous hemianopsia, left hemiataxia. Symptoms were present for several days Plavix. Lipitor. Being followed by neurology -Acute ischemic cardiomyopathy. EF 30 to 35% Cozaar. Add Aldactone -Diabetes mellitus type 2 on insulin, uncontrolled with hyperglycemia Increase Levemir, 16 units daily. Actos. Glipizide. Follow Accu-Cheks. -Essential hypertension Cozaar. Imdur. Toprol-XL. -Morbid obesity BMI 41.1 Weight loss measures -Hyperlipidemia Lipitor -Acute gait dysfunction secondary to left-sided weakness Seen by PT OT. Recommended IPR -Peripheral neuropathy Gabapentin -DNR
[2024-08-18 16:33] LABS: Glucose,Whole Blood 225 mg/dL (70-110)
[2024-08-18 19:46] LABS: Glucose,Whole Blood 211 mg/dL (70-110)
[2024-08-19 05:19] LABS: Glucose,Whole Blood 183 mg/dL (70-110)
[2024-08-19] MEDS: INSULIN DETEMIR (LEVEMIR) 100 UNIT/ML SYR SQ SCH (06:14)
[2024-08-19] MEDS: SPIRONOLACTONE 25 MG TAB PO SCH (09:23)
[2024-08-19] MEDS: LOSARTAN 50 MG TAB PO SCH (09:23)
[2024-08-19] MEDS: METOPROLOL SUCCINATE (ER) 100 MG TAB.ER.24H PO SCH (09:24)
[2024-08-19] MEDS: ALPRAZolam 0.5 MG TAB PO PRN (09:24)
--- NOTE | 2024-08-19 10:23 | P.PN ---
Subjective Progress Note Date: 08/18/24 Patient was seen for a follow-up. Patient has not had any MRI done. Patient's sister was also present. There is no change in her condition. The headache is not as bad. Awaiting MRI. Patient gets Tylenol for headache. Patient continues to have left arm ataxia. Vision still affected. Patient cannot walk. Objective - Vital Signs Vital signs: Vital Signs Temp 98.6 F 08/18/24 16:00 Pulse 78 08/18/24 16:00 Resp 16 08/18/24 16:00 BP 148/84 08/18/24 16:00 Pulse Ox 95 08/18/24 16:00 FiO2 Intake & Output 08/17/24 08/18/24 08/18/24 18:59 06:59 18:59 Intake Total 719.673 188.514 540 Output Total 700 Balance 719.673 -511.486 540 Weight 113.398 kg 112 kg Intake: IV 450 Intake, IV Titration 29.673 68.514 Amount Heparin Sod,Pork in 0.45% 29.673 68.514 NaCl 25,000 unit In 0.45 % NaCl 1 250ml.bag @ 8.82 UNITS/KG/HR 10.002 mls/ hr IV .Q24H JOANIE Rx#: [id number] Oral 240 120 540 Output: Urine 700 Other: Voiding Method Toilet Toilet Toilet # Voids 1 - Exam Detailed examination deferred, as patient is on a bedpan. - Labs CBC & Chem 7: 08/18/24 07:45 08/18/24 07:45 Labs: Abnormal Lab Results - Last 24 Hours (Table) 08/17/24 08/18/24 08/18/24 Range/Units 20:04 05:50 07:45 APTT (22.0-30.0) sec Chloride (98-107) mmol/L Carbon Dioxide (22-30) mmol/L Glucose (74-99) mg/dL POC Glucose (mg/dL) 263 H 252 H (70-110) mg/dL Hemoglobin A1c 12.7 H (<=6.0) % Triglycerides (0.00-149.00) mg/dL Cholesterol (0.00-200.00) mg/dL VLDL Cholesterol, Calc (5.00-40.00) mg/dL HDL Cholesterol (40.00-60.00) mg/dL 08/18/24 08/18/24 08/18/24 Range/Units 07:45 07:45 11:00 APTT 21.8 L (22.0-30.0) sec Chloride 112 H (98-107) mmol/L Carbon Dioxide 21 L (22-30) mmol/L Glucose 222 H (74-99) mg/dL POC Glucose (mg/dL) 218 H (70-110) mg/dL Hemoglobin A1c (<=6.0) % Triglycerides 644.00 H (0.00-149.00) mg/dL Cholesterol 223.00 H (0.00-200.00) mg/dL VLDL Cholesterol, Calc 128.80 H (5.00-40.00) mg/dL HDL Cholesterol 27.40 L (40.00-60.00) mg/dL 08/18/24 Range/Units 16:31 APTT (22.0-30.0) sec Chloride (98-107) mmol/L Carbon Dioxide (22-30) mmol/L Glucose (74-99) mg/dL POC Glucose (mg/dL) 225 H (70-110) mg/dL Hemoglobin A1c (<=6.0) % Triglycerides (0.00-149.00) mg/dL Cholesterol (0.00-200.00) mg/dL VLDL Cholesterol, Calc (5.00-40.00) mg/dL HDL Cholesterol (40.00-60.00) mg/dL Assessment and Plan Assessment: * Probable subacute ischemic stroke, manifesting with left homonymous hemianopia and left hemiataxia. Patient's current NIH score scale is 6. Patient is not a candidate for TNK, as she came outside the window for TNK. Her symptoms hav e been present for last several days. * Acute non-STEMI * New onset headache, unclear cause. * Hypertension * Diabetes * Hyperlipidemia * Obesity * History of essential tremor. Plan: * CT head reported chronic, small vessel ischemic change in the white matter, particularly in the right periventricular region. On my review, could be perhaps late subacute. Patient also has left homonymous hemianopia, which would not be explained from this periventricular lesion. Need to rule out another acute ischemic CVA involving the left cerebellum and or right occipital region. Rule out embolic events from cardiac source. * CTA of head and neck revealed no dissection, occlusion or stenosis of greater than 50%. CTA of the head showed no evidence of aneurysm, severe stenosis or major intracranial branch occlusion. Mild increased lung density in the posterior aspects of both upper lung quevedo. This may represent some diffuse dependent mild atelectasis. * Await MRI of the brain evaluate for acute/subacute stroke. * Heparin has been discontinued, patient started on Plavix 75 mg daily. Patient cannot take aspirin because of allergy. * Patient has triple-vessel disease, and is being considered for possible coronary artery bypass surgery. * 2D echo revealed LVEF 30 to 35%. Moderate concentric LVH. Apical vaughn hypokinetic. Normal right atrial size. Normal left atrial size. No thrombus. Mild to moderate MR. Mild TR. * Fasting a.m. lipid panel with cholesterol 223, LDL 102, HDL 27 and triglycerides 644. Patient started on Lipitor 80 mg daily. Patient not on statins at home. * Hemoglobin A1c 12.7, consistent with poorly controlled diabetes. * Telemetry monitoring, rule out PAF. * DVT prophylaxis: Heparin 5000 units subcu every 12 hour * Neurochecks every 2 hours.
--- NOTE | 2024-08-19 10:54 | MR ---
EXAMINATION TYPE: MR brain wo con DATE OF EXAM: 08/19/2024 10:24 AM CLINICAL INDICATION: Female, 63 years old with history of CVA; PHH, Generalized weakness, episode of left sided tingling x1 hour. COMPARISON: CT 08/16/2024.. TECHNIQUE: Multi planar, multi sequence imaging was performed through the brain including: T1, T2, In version recovery, Diffusion weighted imaging, and gradient echo imaging. No gadolinium was given. FINDINGS: Restricted diffusion within the right thalamus, right occipital lobe and right medial tempo ral lobe. Mild cerebral atrophy with proportional dilation of ventricular system. Scattered foci of high T2 s ignal intensity are seen within the periventricular white matter. Midline structures show no abnormal ity. The susceptibility weighted images do not reveal any evidence for micro-hemorrhage. The bone marrow signal is within normal limits. Paranasal sinuses and mastoid air cells: No significant paranasal sinus disease. Visualized orbits: Orbital contents are intact. IMPRESSION: 1. Acute/subacute CVA involving the right thalamus and right occipital and medial right temporal lobe . 2. Nonspecific white matter changes, likely secondary to small vessel ischemic disease. [facility], , 08/19/2024 10:52 AM
[2024-08-19 11:05] LABS: Glucose,Whole Blood 327 mg/dL (70-110)
--- NOTE | 2024-08-19 11:34 | P.PN ---
Subjective HISTORY OF PRESENT ILLNESS: This is a 63-year-old female who does not follow with a customer contact representative on an outpatient basis. Patient is admitted to the hospital secondary to non-STEMI. Patient underwent cardiac catheterization yesterday with Dr. Bello revealing severe triple-vessel coronary artery disease. Echocardiogram completed revealing ejection fraction 30 to 35%, apical wall hypokinesis, mild to moderate mitral regurgitation, and mild tricuspid regurgitation. Patient was evaluated by neurology yesterday with possibility of subacute ischemic stroke. Patient's IV heparin has since been discontinued. She has been evaluated by CT surgery and deemed not to be a surgical candidate at this time. Plan is for patient to recover from her acute issues and will be reevaluated in the future for CABG. Patient examined this morning at the bedside. She currently denies any chest pain or pressure. She denies any shortness of breath. She states that her vision and headache are improving compared to yesterday. Vital signs are stable. Telemetry reveals sinus mechanism. 08/19/2024 Patient examined this morning at the bedside. Patient patient currently denies chest pain or pressure. She denies shortness of breath. She reports imp rovement in her vision and also her headache. She states she is feeling better overall today. Blood pressures remain elevated this morning at 159/83. PHYSICAL EXAM: VITAL SIGNS: Reviewed. GENERAL: Well-developed in no acute distress. NECK: Supple. No JVD or thyromegaly LUNGS: Respirations even and unlabored. Lungs essentially clear to auscultation bilaterally. HEART: Regular rate and rhythm. S1 and S2 heard. EXTREMITIES: Normal range of motion. No clubbing or cyanosis. Peripheral pulses intact. No lower extremity edema ASSESSMENT: Non-STEMI, status post cardiac catheterization revealing severe triple-vessel coronary artery disease, high risk for CABG secondary to subacute CVA and being nonambulatory Ischemic cardiomyopathy, 30 to 35% Suspected subacute ischemic stroke Headache Hypertension Hyperlipidemia Diabetes Obesity: BMI 41.1 Former nicotine dependence Allergy to aspirin Nonambulatory secondary to neuropathy per patient PLAN: She has been evaluated by CT surgery and deemed not to be a surgical candidate at this time due to patient being nonambulatory and suspected subacute CVA. Plan is for patient to recover from her acute issues and will be reevaluated in the future for CABG Patient has been started on Plavix 75 mg daily. She is unable to take aspirin secondary to allergy of hives and itching. Continue high intensity statin. LDL goal less than 70. Increase losartan to 50 mg daily Continue telemetry monitoring Neurology following. MRI ordered. Await results. Further recommendations pending patient course Patient currently does not follow outpatient with a customer contact representative. Postdischarge, patient will follow-up in the office with Dr. Bello Nurse practitioner note has been reviewed by physician. Signing provider agrees with the documented findings, assessment, and plan of care documented by BOARDING MACHINE OPERATOR as a scribe. Objective - Vital Signs Vital signs: Vital Signs Temp 99.1 F 08/19/24 10:54 Pulse 78 08/19/24 10:54 Resp 16 08/19/24 04:00 BP 120/76 08/19/24 10:54 Pulse Ox 95 08/19/24 10:54 FiO2 Intake & Output 08/18/24 08/19/24 08/19/24 18:59 06:59 18:59 Intake Total 540 0 Output Total 300 Balance 540 -300 0 Weight 131 kg Intake: Oral 540 0 Output: Urine 300 Other: Voiding Method Toilet Toilet # Voids 2 - Labs CBC & Chem 7: 08/18/24 07:45 08/18/24 07:45 Labs: Abnormal Lab Results - Last 24 Hours (Table) 08/18/24 08/18/24 08/18/24 Range/Units 07:45 16:31 19:44 Chloride 112 H (98-107) mmol/L Carbon Dioxide 21 L (22-30) mmol/L Glucose 222 H (74-99) mg/dL POC Glucose (mg/dL) 225 H 211 H (70-110) mg/dL Triglycerides 644.00 H (0.00-149.00) mg/dL Cholesterol 223.00 H (0.00-200.00) mg/dL VLDL Cholesterol, Calc 128.80 H (5.00-40.00) mg/dL HDL Cholesterol 27.40 L (40.00-60.00) mg/dL 08/19/24 08/19/24 Range/Units 05:18 10:59 Chloride (98-107) mmol/L Carbon Dioxide (22-30) mmol/L Glucose (74-99) mg/dL POC Glucose (mg/dL) 183 H 327 H (70-110) mg/dL Triglycerides (0.00-149.00) mg/dL Cholesterol (0.00-200.00) mg/dL VLDL Cholesterol, Calc (5.00-40.00) mg/dL HDL Cholesterol (40.00-60.00) mg/dL
[2024-08-19 12:30] VITALS: BMI 48.0
--- NOTE | 2024-08-19 14:26 | P.CONS ---
History of Present Illness - Reason for Consult Consult date: 08/19/24 Rehab Needs - Chief Complaint Difficulty walking - History of Present Illness Ms. Mobley is a 63 yo single woman who lives alone in an apartment with no URIEL. She used a walking stick SHIPPING PROCESSOR, was independent with her ADLS, driving. She has 2 sons. She has been diagnosed with NSTEMI and underwent cardiac catheterization with Dr. Bello revealing severe triple-vessel coronary artery disease. Echocardiogram completed revealing ejection fraction 30 to 35%, apical wall hypo kinesis, mild to moderate mitral regurgitation, and mild tricuspid regurgitation. Patient was evaluated by neurology yesterday with possibility of subacute ischemic stroke. Patient's IV heparin has since been discontinued. She has been evaluated by CT surgery and deemed not to be a surgical candidate at this time. Plan is for patient to recover from her acute issues and will be reevaluated in the future for CABG. Patient examined this morning at the bedside. She currently denies any chest pain or pressure. She denies any shortness of breath. She states that her vision and headache are improving compared to yesterday. Vital signs are stable. Telemetry reveals sinus mechanism. She has been seen by neurology as having difficulty with vision on left, balance issues and difficulty walking. MRI brain revealed acute/subacute CVA right thalamus, right occipital, and medial right temporal lobe. She has been seen by therapies and is min-mod A for transfers, bed mobility, ambulation. She notes having GRAY (but better), left sided vision issues, tired, numbness in her feet. Review of Systems + per above, o/w all systems reviewed negative. Past Medical History Past Medical History: Asthma, Diabetes Mellitus, Hyperlipidemia, Hypertension, Thyroid Disorder Additional Past Medical History / Comment(s): Peripheral neuropathy. Morbid obesity with a BMI of 41.6 kg/m. History of Any Multi-Drug Resistant Organisms: None Reported Past Surgical History: Cholecystectomy, Hysterectomy Past Anesthesia/Blood Transfusion Reactions: No Reported Reaction Past Psychological History: Depression Smoking Status: Former smoker (Quit smoking over 40 years ago) Past Alcohol Use History: None Reported Past Drug Use History: None Reported - Past Family History Mother Family Medical History: Hypertension Additional Family Medical History / Comment(s): Pulmonary hypertension, scleroderma, chronic kidney disease Father Family Medical History: Myocardial Infarction ([place]) Additional Family Medical History / Comment(s): CABG surgery in his mid 60s Medications and Allergies Home Medications Medication Instructions Recorded Confirmed Type Furosemide [Lasix] 20 mg PO DAILY 08/17/24 08/17/24 History Gabapentin 600 mg PO QID 08/17/24 08/17/24 History Losartan Potassium [Cozaar] 100 mg PO DAILY 08/17/24 08/17/24 History Metoprolol Succinate [Toprol XL] 200 mg PO DAILY 08/17/24 08/17/24 History Montelukast [Singulair] 10 mg PO HS 08/17/24 08/17/24 History Pioglitazone [Actos] 30 mg PO DAILY 08/17/24 08/17/24 History Spironolactone [Aldactone] 100 mg PO DAILY 08/17/24 08/17/24 History Triamterene/Hydrochlorothiazid 1 tab PO DAILY 08/17/24 08/17/24 History [Triamterene-Hctz 37.5-25 mg Tb] glipiZIDE 10 mg PO BID 08/17/24 08/17/24 History Allergies Allergy/AdvReac Type Severity Reaction Status Date / Time aspirin Allergy Itching Verified 08/17/24 07:36 Penicillins Allergy Swelling/Ra Verified 08/17/24 07:36 sh/Hives/It pan Physical Exam Vitals: Vital Signs Temp Pulse Pulse Resp BP Pulse Ox 08/19/24 11:15 78 18 125/70 93 L 08/19/24 10:54 99.1 F 78 120/76 95 08/19/24 08:30 99.4 F 94 16 185/92 93 L 08/19/24 07:21 98.6 F 81 159/83 95 08/19/24 04:00 69 16 138/78 96 08/19/24 02:00 16 08/18/24 23:47 78 15 140/78 95 08/18/24 19:56 77 16 08/18/24 19:54 98.3 F 75 17 142/73 94 L 08/18/24 16:00 98.6 F 78 16 148/84 95 Intake and Output 08/18/24 08/19/24 08/19/24 22:59 06:59 14:59 Intake Total 240 Output Total 300 Balance -300 240 Intake: Oral 240 Output: Urine 300 Other: Voiding Method Toilet Toilet Toilet # Voids 450 # Bowel Movements 1 Weight 131 kg 131 kg Gen: NAD, laert Lungs: non-labored respirations CV: reg rate abd: soft, non-tender Neuro: A&O x (not to year) Speech fluent, follows 3 step commands. CN 2-12 intact except left homonymous hemianopia MMT 5/5 except 4/5 left UE Sensation light touch intact UE/LE; no neglect noted Finger to nose on left with ataxia, mild decrease left heel to [place]. Results CBC & Chem 7: 08/18/24 07:45 08/18/24 07:45 Labs: Abnormal Lab Results - Last 24 Hours (Table) 08/18/24 08/18/24 08/18/24 Range/Units 07:45 16:31 19:44 Chloride 112 H (98-107) mmol/L Carbon Dioxide 21 L (22-30) mmol/L Glucose 222 H (74-99) mg/dL POC Glucose (mg/dL) 225 H 211 H (70-110) mg/dL Triglycerides 644.00 H (0.00-149.00) mg/dL Cholesterol 223.00 H (0.00-200.00) mg/dL VLDL Cholesterol, Calc 128.80 H (5.00-40.00) mg/dL HDL Cholesterol 27.40 L (40.00-60.00) mg/dL 08/19/24 08/19/24 Range/Units 05:18 10:59 Chloride (98-107) mmol/L Carbon Dioxide (22-30) mmol/L Glucose (74-99) mg/dL POC Glucose (mg/dL) 183 H 327 H (70-110) mg/dL Triglycerides (0.00-149.00) mg/dL Cholesterol (0.00-200.00) mg/dL VLDL Cholesterol, Calc (5.00-40.00) mg/dL HDL Cholesterol (40.00-60.00) mg/dL Assessment and Plan Assessment: # CVA with left homonymous hemianopia and left hemiataxia - neurology following - MRI with acute/subacute CVA right thalamus, occipital lobe, medial temporal lobe # Acute NSTEMI s/p cardia cath. Possible surgery as outpatient in future - cardiology following # New onset GRAY # HTN # DM with neuropathy # HLD # h/o essential tremor recs: - per your medical management - continue therapies Appropriate for IPR when medically stable
--- NOTE | 2024-08-19 15:53 | P.PN ---
Progress Note - Text Progress Note Date: 08/19/24 Presenting complaint: Tired Hospital course: Admitted with non-STEMI. Cardiac catheterization with Dr. Rogelio Bello showed severe triple-vessel disease. 2D echo showed EF of 30-35%. Patient also felt to have subacute ischemic stroke as per neurology. Hence IV heparin was discontinued. Patient was seen by cardiothoracic team patient not felt to be a candidate for surgery at this time. May be down the road. August 18: Up in recliner. Some improvement in the vision and speech. Eating fair. Decree sensation on the left side. Some left-sided weakness. Patient sister at the bedside. Feels her speech is slightly off. Pending MRI. Seen by PT OT. Poor standing balance. For IP rehab August 19: No change in neurodeficits. MRI of the brain showing multiple areas of ischemia. Will consult cardiology for MOE to rule out a thrombotic source. Discussed with patient Active Medications Acetaminophen (Acetaminophen Tab 325 Mg Tab) 650 mg PO Q6HR PRN PRN Reason: Fever and/or Mild Pain Last Admin: 08/18/24 10:11 Dose: 650 mg Albuterol/Ipratropium (Ipratropium-Albuterol 3 Ml Neb) 3 ml INHALATION RT-QID PRN PRN Reason: Shortness Of Breath Or Wheezing Alprazolam (Alprazolam 0.25 Mg Tab) 0.25 mg PO Q6HR PRN PRN Reason: Mild Anxiety Alprazolam (Alprazolam 0.5 Mg Tab) 0.5 mg PO Q6HR PRN PRN Reason: Moderate Anxiety Last Admin: 08/19/24 09:24 Dose: 0.5 mg Atorvastatin Calcium (Atorvastatin 80 Mg Tab) 80 mg PO HS [facility] Last Admin: 08/18/24 19:49 Dose: 80 mg Clopidogrel Bisulfate (Clopidogrel 75 Mg Tab) 75 mg PO DAILY [facility] Last Admin: 08/19/24 09:23 Dose: 75 mg Dextrose/Water (Dextrose 50% Syringe 50 Ml) 25 ml IVP PER PROTOCOL PRN; Protocol PRN Reason: Hypoglycemia Dextrose/Water (Dextrose 50% Syringe 50 Ml) 50 ml IVP PER PROTOCOL PRN; Protocol PRN Reason: Hypoglycemia Furosemide (Furosemide 20 Mg Tab) 20 mg PO DAILY [facility] Last Admin: 08/19/24 09:24 Dose: 20 mg Gabapentin (Gabapentin 300 Mg Cap) 600 mg PO QID [facility] Last Admin: 08/19/24 12:33 Dose: 600 mg Glipizide (Glipizide 10 Mg Tab) 10 mg PO BID [facility] Last Admin: 08/19/24 09:24 Dose: 10 mg Heparin Sodium (Porcine) (Heparin Sodium,Porcine 5,000 Unit/Ml 1 Ml Vial) 5,000 unit SQ Q12HR [facility] Last Admin: 08/19/24 09:24 Dose: 5,000 unit Insulin Aspart (Insulin Aspart (Novolog) 100 Unit/Ml Vial) 0 unit SQ ACHS [facility]; Protocol Last Admin: 08/19/24 12:33 Dose: 8 unit Insulin Detemir (Insulin Detemir (Levemir) 100 Unit/Ml Syr) 16 unit SQ DAILY@0700 [facility] Last Admin: 08/19/24 06:14 Dose: 16 unit Isosorbide Mononitrate (Isosorbide Mononitrate Er 30 Mg Tab.Er.24h) 30 mg PO DAILY [facility] Last Admin: 08/19/24 09:24 Dose: 30 mg Losartan Potassium (Losartan 50 Mg Tab) 50 mg PO DAILY [facility] Last Admin: 08/19/24 09:23 Dose: 50 mg Metoprolol Succinate (Metoprolol Succinate (Er) 100 Mg Tab.Er.24h) 100 mg PO DAILY [facility] Last Admin: 08/19/24 09:24 Dose: 100 mg Montelukast Sodium (Montelukast 10 Mg Tab) 10 mg PO HS [facility] Last Admin: 08/18/24 19:49 Dose: 10 mg Morphine Sulfate (Morphine Sulfate 4 Mg/Ml Syringe) 4 mg IVP Q4HR PRN PRN Reason: Pain Last Admin: 08/17/24 21:59 Dose: 4 mg Naloxone HCl (Naloxone 0.4 Mg/Ml 1 Ml Vial) 0.2 mg IV Q2M PRN PRN Reason: Opioid Reversal Nitroglycerin (Nitroglycerin Sl Tabs 0.4 Mg Tab) 0.4 mg SUBLINGUAL Q5M PRN PRN Reason: Chest Pain Ondansetron HCl (Ondansetron 4 Mg/2 Ml Vial) 4 mg IVP Q8HR PRN PRN Reason: Nausea And Vomiting Pioglitazone HCl (Pioglitazone 30 Mg Tab) 30 mg PO DAILY [facility] Last Admin: 08/19/24 09:23 Dose: 30 mg Spironolactone (Spironolactone 25 Mg Tab) 12.5 mg PO DAILY [facility] Last Admin: 08/19/24 09:23 Dose: 12.5 mg On examination: VITAL SIGNS: 99.1, 78, 18, 125 x 70, 93% room air GENERAL APPEARANCE: BMI 41.1, rest in bed HEENT: Normal external appearance of nose and ear. Oral cavity normal EYES: Pupils equal. Conjunctiva normal. NECK: JVD not raised. Mass not palpable. RESPIRATORY: Respiratory effort normal. Lungs clear to auscultation. CARDIOVASCULAR: First and second sounds normal. No edema. ABDOMEN: Soft. Liver and spleen not palpable. No tenderness. No mass palpable. PSYCHIATRY: Alert and oriented x3. Mood and affect normal. NEUROLOGICAL: Left facial numbness, some weakness on the left side. Decreased coordination of the left arm. Speech slightly slow INVESTIGATIONS, reviewed in the clinical context: MRI brain without contrast [August 19] acute/subacute CVA involving the right thalamus and the right occipital and medial right temporal lobe August 18: White count 10.5 hemoglobin 13.3 platelets 241 sodium 139 BUN 16 creatinine 0.7 EKG tracing: Sinus tachycardia. Nonspecific T wave changes CT angio head and neck with IV contrast: Nothing acute reported 2D echocardiogram: EF 30-35%. Moderate LVH. Apical wall hypokinesis. Mild to moderate MR. Cardiac catheterization: Severe triple-vessel disease Assessment plan: -Non--STEMI. cardiac catheterization by Dr. Rosalie Bello. Severe triple-vessel CAD. Patient felt to be high risk for bypass because of subacute CVA. Plavix. Toprol-XL. Cozaar. -Severe triple-vessel disease per cardiac catheterization. High risk for bypass because of subacute stroke. Being followed by cardiothoracic team -Subacute ischemic stroke manifesting left homonymous hemianopsia, left hemiataxia. Symptoms were present for several days MRI brain:acute/subacute CVA involving the right thalamus and the right occipital and medial right temporal lobe Possible embolic stroke. Consult cardiology for MOE Plavix. Lipitor. Being followed by neurology -Acute ischemic cardiomyopathy. EF 30 to 35% Cozaar. Aldactone -Diabetes mellitus type 2 on insulin, uncontrolled with hyperglycemia Increase Levemir, 20 units daily. Actos. Glipizide. Follow Accu-Cheks. -Essential hypertension Cozaar. Imdur. Toprol-XL. -Morbid obesity BMI 41.1 Weight loss measures -Hyperlipidemia Lipitor -Acute gait dysfunction secondary to left-sided weakness Seen by PT OT. Recommended IPR -Peripheral neuropathy Gabapentin -DNR Consult cardiology for MOE. MRI results discussed with the patient. Increase Levemir to 20 units
[2024-08-19 16:21] LABS: Glucose,Whole Blood 195 mg/dL (70-110)
[2024-08-19 20:21] LABS: Glucose,Whole Blood 212 mg/dL (70-110)
[2024-08-20 05:43] LABS: Glucose,Whole Blood 137 mg/dL (70-110)
[2024-08-20] MEDS: INSULIN DETEMIR (LEVEMIR) 100 UNIT/ML SYR SQ SCH (07:11)
[2024-08-20] MEDS ORDERED: MIDAZOLAM 2 MG/2 ML VIAL IV PRN ×2 (09:50)
[2024-08-20] MEDS ORDERED: fentaNYL (PF) 50 MCG/ML 5 ML AMP IVP PRN ×2 (09:50)
[2024-08-20] MEDS ORDERED: BENZOCAINE SPRAY 1 CAN TOPICAL PRN ×2 (09:50)
[2024-08-20] MEDS ORDERED: fentaNYL (PF) 50 MCG/ML 2 ML AMP IVP PRN (10:04)
[2024-08-20] MEDS: BENZOCAINE SPRAY 1 EACH MM ONE ×2 (10:15→10:21)
[2024-08-20] MEDS: SODIUM CHLORIDE 0.9% 250 ML IV ONE (10:20)
[2024-08-20] MEDS: MIDAZOLAM 2 MG/2 ML VIAL IVP ONE (10:21)
[2024-08-20] MEDS: fentaNYL (PF) 50 MCG/ML 2 ML AMP IVP ONE (10:21)
[2024-08-20 11:13] LABS: Glucose,Whole Blood 231 mg/dL (70-110)
--- NOTE | 2024-08-20 11:21 | P.PN ---
Subjective Progress Note Date: 08/19/24 Patient was seen for a follow-up. There is no change in her condition. The headache is not as bad. Patient continues to have left arm ataxia. Vision still affected. Patient cannot walk. Objective - Vital Signs Vital signs: Vital Signs Temp 99.1 F 08/19/24 10:54 Pulse 78 08/19/24 11:15 Resp 18 08/19/24 11:15 BP 125/70 08/19/24 11:15 Pulse Ox 93 L 08/19/24 11:15 FiO2 Intake & Output 08/18/24 08/19/24 08/19/24 18:59 06:59 18:59 Intake Total 540 0 Output Total 300 Balance 540 -300 0 Weight 131 kg 131 kg Intake: Oral 540 0 Output: Urine 300 Other: Voiding Method Toilet Toilet Toilet # Voids 2 450 # Bowel Movements 1 - Exam Patient is alert and awake in no distress. Speech and language functions are normal. Examination again significant for left homonymous hemianopia, complete. Sensory decreased in the left arm and left leg as compared to the right, but equal on the face bilaterally. Patient has ataxia in the left upper and left lower extremity. Muscle strength is normal except left deltoid which is 5- - Labs CBC & Chem 7: 08/18/24 07:45 08/18/24 07:45 Labs: Abnormal Lab Results - Last 24 Hours (Table) 08/18/24 08/18/24 08/18/24 Range/Units 07:45 16:31 19:44 Chloride 112 H (98-107) mmol/L Carbon Dioxide 21 L (22-30) mmol/L Glucose 222 H (74-99) mg/dL POC Glucose (mg/dL) 225 H 211 H (70-110) mg/dL Triglycerides 644.00 H (0.00-149.00) mg/dL Cholesterol 223.00 H (0.00-200.00) mg/dL VLDL Cholesterol, Calc 128.80 H (5.00-40.00) mg/dL HDL Cholesterol 27.40 L (40.00-60.00) mg/dL 08/19/24 08/19/24 Range/Units 05:18 10:59 Chloride (98-107) mmol/L Carbon Dioxide (22-30) mmol/L Glucose (74-99) mg/dL POC Glucose (mg/dL) 183 H 327 H (70-110) mg/dL Triglycerides (0.00-149.00) mg/dL Cholesterol (0.00-200.00) mg/dL VLDL Cholesterol, Calc (5.00-40.00) mg/dL HDL Cholesterol (40.00-60.00) mg/dL Assessment and Plan Assessment: * Acute/subacute ischemic stroke, involving the right thalamus and right occipital and medial right temporal lobe. Patient has presented with left homonymous hemianopia and left hemiataxia. Patient's current NIH score scale is 6. Patient is not a candidate for TNK, as she came outside the window for TNK. Her symptoms have been present for last several days. * Acute non-STEMI * Triple-vessel disease * New onset headache, unclear cause. * Hypertension * Diabetes * Hyperlipidemia * Obesity * History of essential tremor. Plan: * CT head reported chronic, small vessel ischemic change in the white matter, particularly in the right periventricular region. On my review, could be perhaps late subacute. Patient also has left homonymous hemianopia, which would not be explained from this periventricular lesion. Need to rule out another acute ischemic CVA involving the left cerebellum and or right occipital region. Rule out embolic events from cardiac source. * CTA of head and neck revealed no dissection, occlusion or stenosis of greater than 50%. CTA of the head showed no evidence of aneurysm, severe stenosis or major intracranial branch occlusion. Mild increased lung density in the posterior aspects of both upper lung quevedo. This may represent some diffuse dependent mild atelectasis. * MRI of the brain revealed acute/subacute CVA involving the right thalamus and right occipital and medial right temporal lobe. Nonspecific white matter changes, likely secondary to small vessel ischemic disease. I personally reviewed MRI agree with the findings. * Heparin has been discontinued, patient started on Plavix 75 mg daily. Patient cannot take aspirin because of allergy. * Patient has triple-vessel disease, and is being considered for possible coronary artery bypass surgery. Currently on hold because of acute stroke and nonambulatory status at this time. * 2D echo revealed LVEF 30 to 35%. Moderate concentric LVH. Apical vaughn hypokinetic. Normal right atrial size. Normal left atrial size. No thrombus. Mild to moderate MR. Mild TR. * Recommend MOE, rule out embolic source. Discussed with primary physician. * Fasting a.m. lipid panel with cholesterol 223, LDL 102, HDL 27 and triglycerides 644. Patient started on Lipitor 80 mg daily. Patient not on statins at home. * Hemoglobin A1c 12.7, consistent with poorly controlled diabetes. * Telemetry monitoring, rule out PAF. * DVT prophylaxis: Heparin 5000 units subcu every 12 hour * Neurochecks every 4 hours.
--- NOTE | 2024-08-20 12:24 | P.PN ---
Subjective HISTORY OF PRESENT ILLNESS: This is a 63-year-old female who does not follow with a pharmacovigilance specialist on an outpatient basis. Patient is admitted to the hospital secondary to non-STEMI. Patient underwent cardiac catheterization yesterday with Dr. Bello revealing severe triple-vessel coronary artery disease. Echocardiogram completed revealing ejection fraction 30 to 35%, apical wall hypokinesis, mild to moderate mitral regurgitation, and mild tricuspid regurgitation. Patient was evaluated by neurology yesterday with possibility of subacute ischemic stroke. Patient's IV heparin has since been discontinued. She has been evaluated by CT surgery and deemed not to be a surgical candidate at this time. Plan is for patient to recover from her acute issues and will be reevaluated in the future for CABG. Patient examined this morning at the bedside. She currently denies any chest pain or pressure. She denies any shortness of breath. She states that her vision and headache are improving compared to yesterday. Vital signs are stable. Telemetry reveals sinus mechanism. 08/19/2024 Patient examined this morning at the bedside. Patient patient currently denies chest pain or pressure. She denies shortness of breath. She reports imp rovement in her vision and also her headache. She states she is feeling better overall today. Blood pressures remain elevated this morning at 159/83. 08/20/2024 Patient examined this morning the bedside. Patient states her symptoms are continuing to improve. She denies any chest pain or pressure. She denies any shortness of breath. Patient states she has been able to get up and ambulate to the bathroom and to the chair. MRI reveals acute/subacute CVA involving right thalamus and right occipital and medial right temporal lobe. Telemetry reveals sinus mechanism. Blood pressure stable. Most recent reading 134/71. PHYSICAL EXAM: VITAL SIGNS: Reviewed. GENERAL: Well-developed in no acute distress. NECK: Supple. No JVD or thyromegaly LUNGS: Respirations even and unlabored. Lungs essentially clear to auscultation bilaterally. HEART: Regular rate and rhythm. S1 and S2 heard. EXTREMITIES: Normal range of motion. No clubbing or cyanosis. Peripheral pulses intact. 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 Plan is for patient to recover from her acute issues and will be reevaluated in the future for CABG Continue Plavix 75 mg daily. She is unable to take aspirin secondary to allergy of hives and itching. Continue high intensity statin. LDL goal less than 70. Continue additional cardiac medications Neurology following Patient to undergo MOE today with Dr. Bello Patient currently does not follow outpatient with a pharmacovigilance specialist. Postdischarge, patient will follow-up in the office with Dr. Bello Nurse practitioner note has been reviewed by physician. Signing provider agrees with the documented findings, assessment, and plan of care documented by SCHEDULING ANALYST as a scribe. Objective - Vital Signs Vital signs: Vital Signs Temp 99.0 F 08/20/24 08:00 Pulse 86 08/20/24 08:00 Resp 18 08/20/24 10:37 BP 134/71 08/20/24 10:37 Pulse Ox 98 08/20/24 10:37 FiO2 Intake & Output 08/19/24 08/20/24 08/20/24 18:59 06:59 18:59 Intake Total 360 100 Balance 360 100 Weight 131 kg 130.5 kg Intake: IV 100 Oral 360 Other: Voiding Method Toilet Toilet Toilet # Voids 450 # Bowel Movements 1 - Labs CBC & Chem 7: 08/18/24 07:45 08/18/24 07:45 Labs: Abnormal Lab Results - Last 24 Hours (Table) 08/19/24 08/19/24 08/20/24 Range/Units 16:19 20:20 05:41 POC Glucose (mg/dL) 195 H 212 H 137 H (70-110) mg/dL 08/20/24 Range/Units 11:11 POC Glucose (mg/dL) 231 H (70-110) mg/dL
--- NOTE | 2024-08-20 12:52 | ECHOT ---
TRANSESOPHAGEAL ECHOCARDIOGRAM INDICATION: CVA, rule out cardiac source of thromboembolic phenomenon. PROCEDURE NOTE: After obtaining informed consent, transesophageal echocardiogram was performed in left lateral position using an Omniplane probe. Local and IV sedation were obtained using Xylocaine spray, 2 mg of Versed and 25 mcg of fentanyl. The patient tolerated the procedure well without any obvious immediate complications. Total sedation time was 10 minutes. FINDINGS: 1. There is no intracardiac thrombus within the left atrial appendage, left atrium, right atrium, right ventricle, or left ventricle. 2. There is no evidence of thxl-te-htsin shunt by color-flow Doppler or lyqgj-ib-cjrd shunt by agitated saline contrast study. 3. Aortic root appears normal. 4. Mitral valve: Anterior mitral leaflet appears thickened with mild mitral valve prolapse with moderate to severe central mitral regurgitation. There is mild tricuspid regurgitation noted. Aortic valve is free of stenosis or regurgitation. Left ventricle shows normal size. Left ventricular hypertrophy with an ejection fraction of 45%. Inferior wall appeared hypokinetic. CONCLUSIONS: No intracardiac thrombus. No evidence of shunting across the interatrial septum. MMODL / IJN: [id number] /
[2024-08-20 16:32] LABS: Glucose,Whole Blood 212 mg/dL (70-110)
[2024-08-20 20:37] LABS: Glucose,Whole Blood 130 mg/dL (70-110)
--- NOTE | 2024-08-20 21:02 | P.PN ---
Progress Note - Text Progress Note Date: 08/20/24 Presenting complaint: Tired Hospital course: Admitted with non-STEMI. Cardiac catheterization with Dr. Rogelio Bello showed severe triple-vessel disease. 2D echo showed EF of 30-35%. Patient also felt to have subacute ischemic stroke as per neurology. Hence IV heparin was discontinued. Patient was seen by cardiothoracic team patient not felt to be a candidate for surgery at this time. May be down the road. August 18: Up in recliner. Some improvement in the vision and speech. Eating fair. Decree sensation on the left side. Some left-sided weakness. Patient sister at the bedside. Feels her speech is slightly off. Pending MRI. Seen by PT OT. Poor standing balance. For IP rehab August 19: No change in neurodeficits. MRI of the brain showing multiple areas of ischemia. Will consult cardiology for MOE to rule out a thrombotic source. Discussed with patient August 20: Patient underwent MOE this morning by Dr. Rosalie Bello. No orae-uz-ejqal shunt. Patient found to have some mitral valve prolapse with moderate to severe central MR. Some LVH. No thrombus. Spoke to social media marketing specialist. Pending rehab placement. Active Medications Acetaminophen (Acetaminophen Tab 325 Mg Tab) 650 mg PO Q6HR PRN PRN Reason: Fever and/or Mild Pain Last Admin: 08/19/24 20:32 Dose: 650 mg Albuterol/Ipratropium (Ipratropium-Albuterol 3 Ml Neb) 3 ml INHALATION RT-QID PRN PRN Reason: Shortness Of Breath Or Wheezing Alprazolam (Alprazolam 0.25 Mg Tab) 0.25 mg PO Q6HR PRN PRN Reason: Mild Anxiety Alprazolam (Alprazolam 0.5 Mg Tab) 0.5 mg PO Q6HR PRN PRN Reason: Moderate Anxiety Last Admin: 08/19/24 09:24 Dose: 0.5 mg Atorvastatin Calcium (Atorvastatin 80 Mg Tab) 80 mg PO HS [facility] Last Admin: 08/20/24 20:47 Dose: 80 mg Benzocaine (Benzocaine Willow 1 Can) 1 spray TOPICAL TID PRN PRN Reason: Skin Irritation Clopidogrel Bisulfate (Clopidogrel 75 Mg Tab) 75 mg PO DAILY [facility] Last Admin: 08/20/24 09:12 Dose: 75 mg Dextrose/Water (Dextrose 50% Syringe 50 Ml) 25 ml IVP PER PROTOCOL PRN; Protocol PRN Reason: Hypoglycemia Dextrose/Water (Dextrose 50% Syringe 50 Ml) 50 ml IVP PER PROTOCOL PRN; Protocol PRN Reason: Hypoglycemia Fentanyl Citrate (Fentanyl (Pf) 50 Mcg/Ml 2 Ml Amp) 50 mcg IVP ONCE PRN PRN Reason: PRE-OP Stop: 08/20/24 23:00 Furosemide (Furosemide 20 Mg Tab) 20 mg PO DAILY [facility] Last Admin: 08/20/24 09:13 Dose: 20 mg Gabapentin (Gabapentin 300 Mg Cap) 600 mg PO QID [facility] Last Admin: 08/20/24 18:14 Dose: 600 mg Glipizide (Glipizide 10 Mg Tab) 10 mg PO BID [facility] Last Admin: 08/20/24 20:47 Dose: 10 mg Heparin Sodium (Porcine) (Heparin Sodium,Porcine 5,000 Unit/Ml 1 Ml Vial) 5,000 unit SQ Q12HR [facility] Last Admin: 08/20/24 20:47 Dose: 5,000 unit Insulin Aspart (Insulin Aspart (Novolog) 100 Unit/Ml Vial) 0 unit SQ ACHS [facility]; Protocol Last Admin: 08/20/24 20:43 Dose: Not Given Insulin Detemir (Insulin Detemir (Levemir) 100 Unit/Ml Syr) 20 unit SQ DAILY@0700 [facility] Last Admin: 08/20/24 07:11 Dose: 20 unit Isosorbide Mononitrate (Isosorbide Mononitrate Er 30 Mg Tab.Er.24h) 30 mg PO DAILY [facility] Last Admin: 08/20/24 09:12 Dose: 30 mg Losartan Potassium (Losartan 50 Mg Tab) 50 mg PO DAILY [facility] Last Admin: 08/20/24 09:13 Dose: 50 mg Metoprolol Succinate (Metoprolol Succinate (Er) 100 Mg Tab.Er.24h) 100 mg PO DAILY [facility] Last Admin: 08/20/24 09:12 Dose: 100 mg Midazolam HCl (Midazolam 2 Mg/2 Ml Vial) 1 mg IV ONCE PRN PRN Reason: Pre-Op Stop: 08/21/24 03:50 Montelukast Sodium (Montelukast 10 Mg Tab) 10 mg PO HS [facility] Last Admin: 08/20/24 20:47 Dose: 10 mg Morphine Sulfate (Morphine Sulfate 4 Mg/Ml Syringe) 4 mg IVP Q4HR PRN PRN Reason: Pain Last Admin: 08/17/24 21:59 Dose: 4 mg Naloxone HCl (Naloxone 0.4 Mg/Ml 1 Ml Vial) 0.2 mg IV Q2M PRN PRN Reason: Opioid Reversal Nitroglycerin (Nitroglycerin Sl Tabs 0.4 Mg Tab) 0.4 mg SUBLINGUAL Q5M PRN PRN Reason: Chest Pain Ondansetron HCl (Ondansetron 4 Mg/2 Ml Vial) 4 mg IVP Q8HR PRN PRN Reason: Nausea And Vomiting Pioglitazone HCl (Pioglitazone 30 Mg Tab) 30 mg PO DAILY [facility] Last Admin: 08/20/24 12:05 Dose: 30 mg Spironolactone (Spironolactone 25 Mg Tab) 12.5 mg PO DAILY [facility] Last Admin: 08/20/24 09:12 Dose: 12.5 mg On examination: VITAL SIGNS: 99, 86, 16, 104/63 95% room air GENERAL APPEARANCE: BMI 41.1, rest in bed HEENT: Normal external appearance of nose and ear. Oral cavity normal EYES: Pupils equal. Conjunctiva normal. NECK: JVD not raised. Mass not palpable. RESPIRATORY: Respiratory effort normal. Lungs clear to auscultation. CARDIOVASCULAR: First and second sounds normal. No edema. ABDOMEN: Soft. Liver and spleen not palpable. No tenderness. No mass palpable. PSYCHIATRY: Alert and oriented x3. Mood and affect normal. NEUROLOGICAL: Left facial numbness, some weakness on the left side. Decreased coordination of the left arm. Speech slightly slow INVESTIGATIONS, reviewed in the clinical context: MOE: Moderate MR. No thrombus. No shunt. MRI brain without contrast [August 19] acute/subacute CVA involving the right thalamus and the right occipital and medial right temporal lobe August 18: White count 10.5 hemoglobin 13.3 platelets 241 sodium 139 BUN 16 creatinine 0.7 EKG tracing: Sinus tachycardia. Nonspecific T wave changes CT angio head and neck with IV contrast: Nothing acute reported 2D echocardiogram: EF 30-35%. Moderate LVH. Apical wall hypokinesis. Mild to moderate MR. Cardiac catheterization: Severe triple-vessel disease Assessment plan: -Non--STEMI. cardiac catheterization by Dr. Rosalie Bello. Severe triple-vessel CAD. Patient felt to be high risk for bypass because of subacute CVA. Plavix. Toprol-XL. Cozaar. -Severe triple-vessel disease per cardiac catheterization. High risk for bypass because of subacute stroke. Being followed by cardiothoracic team -Subacute ischemic stroke manifesting left homonymous hemianopsia, left hemiataxia. Symptoms were present for several days MRI brain:acute/subacute CVA involving the right thalamus and the right occipital and medial right temporal lobe Possible embolic stroke. MOE: Negative for shunt and negative for thrombus Plavix. Lipitor. Being followed by neurology -Acute ischemic cardiomyopathy. EF 30 to 35% Cozaar. Aldactone -Diabetes mellitus type 2 on insulin, uncontrolled with hyperglycemia Increase Levemir, 20 units daily. Actos. Glipizide. Follow Accu-Cheks. -Essential hypertension Cozaar. Imdur. Toprol-XL. -Morbid obesity BMI 41.1 Weight loss measures -Hyperlipidemia Lipitor -Acute gait dysfunction secondary to left-sided weakness Seen by PT OT. Recommended IPR -Peripheral neuropathy Gabapentin -DNR MOE results above. Pending rehab.
[2024-08-21 06:25] LABS: Glucose,Whole Blood 116 mg/dL (70-110)
[2024-08-21 11:03] LABS: Glucose,Whole Blood 191 mg/dL (70-110)
--- NOTE | 2024-08-21 11:50 | P.PN ---
Subjective Progress Note Date: 08/20/24 Patient was seen for a follow-up. There is no change in her condition. The headache is not as bad. Patient continues to have left arm ataxia. Vision still affected. Patient cannot walk. Objective - Vital Signs Vital signs: Vital Signs Temp 99.0 F 08/20/24 08:00 Pulse 77 08/20/24 11:15 Resp 16 08/20/24 11:15 BP 104/63 08/20/24 11:15 Pulse Ox 96 08/20/24 11:15 FiO2 Intake & Output 08/19/24 08/20/24 08/20/24 18:59 06:59 18:59 Intake Total 360 220 Balance 360 220 Weight 131 kg 130.5 kg Intake: IV 100 Oral 360 120 Other: Voiding Method Toilet Toilet Toilet # Voids 450 1 # Bowel Movements 1 - Exam Patient is alert and awake in no distress. Speech and language functions are normal. Examination again significant for left homonymous hemianopia, complete. Sensory decreased in the left arm and left leg as compared to the right, but equal on the face bilaterally. Patient has ataxia in the left upper and left lower extremity. Muscle strength is normal except left deltoid which is 5-. Patient has left pronator drift about 45 degree. - Labs CBC & Chem 7: 08/18/24 07:45 08/18/24 07:45 Labs: Abnormal Lab Results - Last 24 Hours (Table) 08/19/24 08/19/24 08/20/24 Range/Units 16:19 20:20 05:41 POC Glucose (mg/dL) 195 H 212 H 137 H (70-110) mg/dL 08/20/24 Range/Units 11:11 POC Glucose (mg/dL) 231 H (70-110) mg/dL Assessment and Plan Assessment: * Acute/subacute ischemic stroke, involving the right thalamus and right occipital and medial right temporal lobe. Patient has presented with left homonymous hemianopia and left hemiataxia. Patient's current NIH score scale is 6. Patient is not a candidate for TNK, as she came outside the window for TNK. Her symptoms have been present for last several days. * Acute non-STEMI * Triple-vessel disease * New onset headache, unclear cause. * Hypertension * Diabetes * Hyperlipidemia * Obesity * History of essential tremor. Plan: * CT head reported chronic, small vessel ischemic change in the white matter, particularly in the right periventricular region. On my review, could be perhaps late subacute. Patient also has left homonymous hemianopia, which would not be explained from this periventricular lesion. Need to rule out another acute ischemic CVA involving the left cerebellum and or right occipital region. Rule out embolic events from cardiac source. * CTA of head and neck revealed no dissection, occlusion or stenosis of greater than 50%. CTA of the head showed no evidence of aneurysm, severe stenosis or major intracranial branch occlusion. Mild increased lung density in the posterior aspects of both upper lung quevedo. This may represent some diffuse dependent mild atelectasis. * MRI of the brain revealed acute/subacute CVA involving the right thalamus and right occipital and medial right temporal lobe. Nonspecific white matter changes, likely secondary to small vessel ischemic disease. I personally reviewed MRI agree with the findings. * Heparin has been discontinued, patient started on Plavix 75 mg daily. Patient cannot take aspirin because of allergy. * Patient has triple-vessel disease, and is being considered for possible coronary artery bypass surgery. Currently on hold because of acute stroke and nonambulatory status at this time. * 2D echo revealed LVEF 30 to 35%. Moderate concentric LVH. Apical vaughn hypokinetic. Normal right atrial size. Normal left atrial size. No thrombus. Mild to moderate MR. Mild TR. * Transesophageal echocardiogram revealed no intracardiac thrombus within the left atrial appendage, left atrium, right atrium, right ventricle or left ventricle. There is no evidence of left to right shunt by color-flow Doppler or [id number] shunt by agitated saline contrast study. Moderate to severe MR. Aortic valve is free of stenosis or regurgitation. LVH with EF 45%. Inferior wall appears hypokinetic. * We will defer to cardiology management regarding moderate to severe MR. * Consider 30-day event monitor outpatient to rule out paroxysmal atrial f ibrillation. * Fasting a.m. lipid panel with cholesterol 223, LDL 102, HDL 27 and triglycerides 644. Patient started on Lipitor 80 mg daily. Patient not on statins at home. * Hemoglobin A1c 12.7, consistent with poorly controlled diabetes. Recommend optimize control of diabetes to target A1c <7.0. * Telemetry monitoring, rule out PAF. * DVT prophylaxis: Heparin 5000 units subcu every 12 hour * Neurochecks every 4 hours. * Neurologically clear for transfer to inpatient rehab.
--- NOTE | 2024-08-21 13:04 | P.PN ---
Subjective Progress Note Date: 08/21/24 HISTORY OF PRESENT ILLNESS: This is a 63-year-old female who does not follow with a [facility] on an o utpatient basis. Patient is admitted to the hospital secondary to non-STEMI. Patient underwent cardiac catheterization yesterday with Dr. Bello revealing severe triple-vessel coronary artery disease. Echocardiogram completed revealing ejection fraction 30 to 35%, apical wall hypokinesis, mild to moderate mitral regurgitation, and mild tricuspid regurgitation. Patient was evaluated by neurology yesterday with possibility of subacute ischemic stroke. Patient's IV heparin has since been discontinued. She has been evaluated by CT surgery and deemed not to be a surgical candidate at this time. Plan is for patient to recover from her acute issues and will be reevaluated in the future for CABG. Patient examined this morning at the bedside. She currently denies any chest pain or pressure. She denies any shortness of breath. She states that her vision and headache are improving compared to yesterday. Vital signs are stable. Telemetry reveals sinus mechanism. 08/19/2024 Patient examined this morning at the bedside. Patient patient currently denies chest pain or pressure. She denies shortness of breath. She reports improvement in her vision and also her headache. She states she is feeling better overall today. Blood pressures remain elevated this morning at 159/83. 08/20/2024 Patient examined this morning the bedside. Patient states her symptoms are continuing to improve. She denies any chest pain or pressure. She denies any shortness of breath. Patient states she has been able to get up and ambulate to the bathroom and to the chair. MRI reveals acute/subacute CVA involving right thalamus and right occipital and medial right temporal lobe. Telemetry reveals sinus mechanism. Blood pressure stable. Most recent reading 134/71. 08/21 Patient is seen and examined has been transferred to the [facility] floor. Yesterday, patient underwent MOE that showed no intracardiac thrombus, no evidence of left to right shunt, aortic root appears normal, mitral valve with prolapse with moderate to severe central mitral regurgitation, mild tricuspid regurgitation. Aortic valve is free of stenosis or regurgitation. Left ventricular hypertrophy with a EF of 45%. Inferior wall appeared hypokinetic. Blood pressure 154/71, heart rate 89, pulse ox 95% on room air. Patient is waiting for insurance authorization for inpatient rehab. She states that she had a brief episode of chest pain this morning but it is gone away. PHYSICAL EXAM: VITAL SIGNS: Reviewed. GENERAL: Well-developed in no acute distress. NECK: Supple. No JVD or thyromegaly LUNGS: Respirations even and unlabored. Lungs essentially clear to auscultation bilaterally. HEART: Regular rate and rhythm. S1 and S2 heard. EXTREMITIES: Normal range of motion. No clubbing or cyanosis. Peripheral pu lses intact. 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 Plan is for patient to recover from her acute issues and will be reevaluated in the future for CABG Continue Plavix 75 mg daily. She is unable to take aspirin secondary to allergy of hives and itching. Continue high intensity statin. LDL goal less than 70. Continue additional cardiac medications Neurology following Patient currently does not follow outpatient with a [facility]. Postdischarge, patient will follow-up in the office with Dr. Bello. Patient will be set up for event monitor at her follow up appointment. Nurse practitioner note has been reviewed by physician. Signing provider agrees with the documented findings, assessment, and plan of care documented by [employer] OPERATOR as a scribe. Objective - Vital Signs Vital signs: Vital Signs Temp 98.9 F 08/21/24 01:54 Pulse 89 08/21/24 01:54 Resp 17 08/21/24 01:54 BP 154/71 08/21/24 01:54 Pulse Ox 95 08/21/24 01:54 FiO2 Intake & Output 08/20/24 08/21/24 08/21/24 18:59 06:59 18:59 Intake Total 340 Output Total 300 Balance 340 -300 Weight 131 kg Intake: IV 100 Oral 240 Output: Urine 300 Other: Voiding Method Toilet External Catheter # Voids 1 2 # Bowel Movements 1 - Labs CBC & Chem 7: 08/18/24 07:45 08/18/24 07:45 Labs: Abnormal Lab Results - Last 24 Hours (Table) 08/20/24 08/20/24 08/20/24 Range/Units 11:11 16:29 20:35 POC Glucose (mg/dL) 231 H 212 H 130 H (70-110) mg/dL 08/21/24 Range/Units 06:16 POC Glucose (mg/dL) 116 H (70-110) mg/dL
--- NOTE | 2024-08-21 16:46 | P.PN ---
Progress Note - Text Progress Note Date: 08/21/24 Presenting complaint: Tired Hospital course: Admitted with non-STEMI. Cardiac catheterization with Dr. Rogelio Bello showed severe triple-vessel disease. 2D echo showed EF of 30-35%. Patient also felt to have subacute ischemic stroke as per neurology. Hence IV heparin was discontinued. Patient was seen by cardiothoracic team patient not felt to be a candidate for surgery at this time. May be down the road. August 18: Up in recliner. Some improvement in the vision and speech. Eating fair. Decree sensation on the left side. Some left-sided weakness. Patient sister at the bedside. Feels her speech is slightly off. Pending MRI. Seen by PT OT. Poor standing balance. For IP rehab August 19: No change in neurodeficits. MRI of the brain showing multiple areas of ischemia. Will consult cardiology for MOE to rule out a thrombotic source. Discussed with patient August 20: Patient underwent MOE this morning by Dr. Rosalie Bello. No [id number] shunt. Patient found to have some mitral valve prolapse with moderate to severe central MR. Some LVH. No thrombus. Spoke to oncology social worker. Pending rehab placement. August 21: Comfortable. No new issues. Per oncology social worker pending rehab placement. Active Medications Acetaminophen (Acetaminophen Tab 325 Mg Tab) 650 mg PO Q6HR PRN PRN Reason: Fever and/or Mild Pain Last Admin: 08/21/24 12:26 Dose: 650 mg Albuterol/Ipratropium (Ipratropium-Albuterol 3 Ml Neb) 3 ml INHALATION RT-QID PRN PRN Reason: Shortness Of Breath Or Wheezing Alprazolam (Alprazolam 0.25 Mg Tab) 0.25 mg PO Q6HR PRN PRN Reason: Mild Anxiety Alprazolam (Alprazolam 0.5 Mg Tab) 0.5 mg PO Q6HR PRN PRN Reason: Moderate Anxiety Last Admin: 08/19/24 09:24 Dose: 0.5 mg Atorvastatin Calcium (Atorvastatin 80 Mg Tab) 80 mg PO HS [facility] Last Admin: 08/20/24 20:47 Dose: 80 mg Benzocaine (Benzocaine [place] 1 Can) 1 spray TOPICAL TID PRN PRN Reason: Skin Irritation Clopidogrel Bisulfate (Clopidogrel 75 Mg Tab) 75 mg PO DAILY [facility] Last Admin: 08/21/24 09:58 Dose: 75 mg Dextrose/Water (Dextrose 50% Syringe 50 Ml) 25 ml IVP PER PROTOCOL PRN; Protocol PRN Reason: Hypoglycemia Dextrose/Water (Dextrose 50% Syringe 50 Ml) 50 ml IVP PER PROTOCOL PRN; Protocol PRN Reason: Hypoglycemia Furosemide (Furosemide 20 Mg Tab) 20 mg PO DAILY [facility] Last Admin: 08/21/24 09:58 Dose: 20 mg Gabapentin (Gabapentin 300 Mg Cap) 600 mg PO QID [facility] Last Admin: 08/21/24 12:23 Dose: 600 mg Glipizide (Glipizide 10 Mg Tab) 10 mg PO BID [facility] Last Admin: 08/21/24 09:58 Dose: 10 mg Heparin Sodium (Porcine) (Heparin Sodium,Porcine 5,000 Unit/Ml 1 Ml Vial) 5,000 unit SQ Q12HR [facility] Last Admin: 08/21/24 09:57 Dose: 5,000 unit Insulin Aspart (Insulin Aspart (Novolog) 100 Unit/Ml Vial) 0 unit SQ ACHS [facility]; Protocol Last Admin: 08/21/24 12:23 Dose: 2 unit Insulin Detemir (Insulin Detemir (Levemir) 100 Unit/Ml Syr) 20 unit SQ DAILY@0700 [facility] Last Admin: 08/21/24 07:00 Dose: 20 unit Isosorbide Mononitrate (Isosorbide Mononitrate Er 30 Mg Tab.Er.24h) 30 mg PO DAILY [facility] Last Admin: 08/21/24 09:58 Dose: 30 mg Losartan Potassium (Losartan 50 Mg Tab) 50 mg PO DAILY [facility] Last Admin: 08/21/24 09:58 Dose: 50 mg Metoprolol Succinate (Metoprolol Succinate (Er) 100 Mg Tab.Er.24h) 100 mg PO DAILY [facility] Last Admin: 08/21/24 10:03 Dose: 100 mg Montelukast Sodium (Montelukast 10 Mg Tab) 10 mg PO HS [facility] Last Admin: 08/20/24 20:47 Dose: 10 mg Morphine Sulfate (Morphine Sulfate 4 Mg/Ml Syringe) 4 mg IVP Q4HR PRN PRN Reason: Pain Last Admin: 08/17/24 21:59 Dose: 4 mg Naloxone HCl (Naloxone 0.4 Mg/Ml 1 Ml Vial) 0.2 mg IV Q2M PRN PRN Reason: Opioid Reversal Nitroglycerin (Nitroglycerin Sl Tabs 0.4 Mg Tab) 0.4 mg SUBLINGUAL Q5M PRN PRN Reason: Chest Pain Ondansetron HCl (Ondansetron 4 Mg/2 Ml Vial) 4 mg IVP Q8HR PRN PRN Reason: Nausea And Vomiting Pioglitazone HCl (Pioglitazone 30 Mg Tab) 30 mg PO DAILY [facility] Last Admin: 08/21/24 09:57 Dose: 30 mg Spironolactone (Spironolactone 25 Mg Tab) 12.5 mg PO DAILY [facility] Last Admin: 08/21/24 09:57 Dose: 12.5 mg On examination: VITAL SIGNS: 98.8, 87, 20, 101 x 60, 94% room air GENERAL APPEARANCE: BMI 41.1, comfortable HEENT: Normal external appearance of nose and ear. Oral cavity normal EYES: Pupils equal. Conjunctiva normal. NECK: JVD not raised. Mass not palpable. RESPIRATORY: Respiratory effort normal. Lungs clear to auscultation. CARDIOVASCULAR: First and second sounds normal. No edema. ABDOMEN: Soft. Liver and spleen not palpable. No tenderness. No mass palpable. PSYCHIATRY: Alert and oriented x3. Mood and affect normal. NEUROLOGICAL: Left facial numbness, some weakness on the left side. Decreased coordination of the left arm. Speech slightly slow INVESTIGATIONS, reviewed in the clinical context: MOE: Moderate MR. No thrombus. No shunt. MRI brain without contrast [August 19] acute/subacute CVA involving the right thalamus and the right occipital and medial right temporal lobe August 18: White count 10.5 hemoglobin 13.3 platelets 241 sodium 139 BUN 16 creatinine 0.7 EKG tracing: Sinus tachycardia. Nonspecific T wave changes CT angio head and neck with IV contrast: Nothing acute reported 2D echocardiogram: EF 30-35%. Moderate LVH. Apical wall hypokinesis. Mild to moderate MR. Cardiac catheterization: Severe triple-vessel disease Assessment plan: -Non--STEMI. cardiac catheterization by Dr. Rosalie Bello. Severe triple-vessel CAD. Patient felt to be high risk for bypass because of subacute CVA. Plavix. Toprol-XL. Cozaar. -Severe triple-vessel disease per cardiac catheterization. High risk for bypass because of subacute stroke. Being followed by cardiothoracic team -Subacute ischemic stroke manifesting left homonymous hemianopsia, left hemiataxia. Symptoms were present for several days MRI brain:acute/subacute CVA involving the right thalamus and the right occipital and medial right temporal lobe Possible embolic stroke. MOE: Negative for shunt and negative for thrombus Plavix. Lipitor. Being followed by neurology -Acute ischemic cardiomyopathy. EF 30 to 35% Cozaar. Aldactone -Diabetes mellitus type 2 on insulin, Levemir, 20 units daily. Actos. Glipizide. Follow Accu-Cheks. -Essential hypertension Cozaar. Imdur. Toprol-XL. -Morbid obesity BMI 41.1 Weight loss measures -Hyperlipidemia Lipitor -Acute gait dysfunction secondary to left-sided weakness Seen by PT OT. Recommended IPR -Peripheral neuropathy Gabapentin -DNR Continue current medications. Pending authorization for rehab.
[2024-08-21 17:10] LABS: Glucose,Whole Blood 205 mg/dL (70-110)
[2024-08-21 22:07] LABS: Glucose,Whole Blood 137 mg/dL (70-110)
[2024-08-22 06:33] LABS: Glucose,Whole Blood 175 mg/dL (70-110)
[2024-08-22 11:55] LABS: Glucose,Whole Blood 205 mg/dL (70-110)
[2024-08-22 16:54] LABS: Glucose,Whole Blood 113 mg/dL (70-110)
--- NOTE | 2024-08-22 19:20 | P.PN ---
Progress Note - Text Progress Note Date: 08/22/24 Presenting complaint: Tired Hospital course: Admitted with non-STEMI. Cardiac catheterization with Dr. Rogelio Bello showed severe triple-vessel disease. 2D echo showed EF of 30-35%. Patient also felt to have subacute ischemic stroke as per neurology. Hence IV heparin was discontinued. Patient was seen by cardiothoracic team patient not felt to be a candidate for surgery at this time. May be down the road. August 18: Up in recliner. Some improvement in the vision and speech. Eating fair. Decree sensation on the left side. Some left-sided weakness. Patient sister at the bedside. Feels her speech is slightly off. Pending MRI. Seen by PT OT. Poor standing balance. For IP rehab August 19: No change in neurodeficits. MRI of the brain showing multiple areas of ischemia. Will consult cardiology for MOE to rule out a thrombotic source. Discussed with patient August 20: Patient underwent MOE this morning by Dr. Rosalie Bello. No [id number] shunt. Patient found to have some mitral valve prolapse with moderate to severe central MR. Some LVH. No thrombus. Spoke to oncology social worker. Pending rehab placement. August 21: Comfortable. No new issues. Per oncology social worker pending rehab placement. August 22: Tolerating diet. Awaiting placement. Otherwise comfortable. Active Medications Acetaminophen (Acetaminophen Tab 325 Mg Tab) 650 mg PO Q6HR PRN PRN Reason: Fever and/or Mild Pain Last Admin: 08/22/24 09:14 Dose: 650 mg Albuterol/Ipratropium (Ipratropium-Albuterol 3 Ml Neb) 3 ml INHALATION RT-QID PRN PRN Reason: Shortness Of Breath Or Wheezing Alprazolam (Alprazolam 0.25 Mg Tab) 0.25 mg PO Q6HR PRN PRN Reason: Mild Anxiety Alprazolam (Alprazolam 0.5 Mg Tab) 0.5 mg PO Q6HR PRN PRN Reason: Moderate Anxiety Last Admin: 08/19/24 09:24 Dose: 0.5 mg Atorvastatin Calcium (Atorvastatin 80 Mg Tab) 80 mg PO HS [facility] Last Admin: 08/21/24 22:55 Dose: 80 mg Benzocaine (Benzocaine [place] 1 Can) 1 spray TOPICAL TID PRN PRN Reason: Skin Irritation Clopidogrel Bisulfate (Clopidogrel 75 Mg Tab) 75 mg PO DAILY [facility] Last Admin: 08/22/24 09:05 Dose: 75 mg Dapagliflozin (Dapagliflozin Propanediol 10 Mg Tablet) 10 mg PO DAILY [facility] Dextrose/Water (Dextrose 50% Syringe 50 Ml) 25 ml IVP PER PROTOCOL PRN; Protocol PRN Reason: Hypoglycemia Dextrose/Water (Dextrose 50% Syringe 50 Ml) 50 ml IVP PER PROTOCOL PRN; Protocol PRN Reason: Hypoglycemia Gabapentin (Gabapentin 300 Mg Cap) 600 mg PO QID [facility] Last Admin: 08/22/24 17:10 Dose: 600 mg Glipizide (Glipizide 10 Mg Tab) 10 mg PO BID [facility] Last Admin: 08/22/24 09:06 Dose: 10 mg Heparin Sodium (Porcine) (Heparin Sodium,Porcine 5,000 Unit/Ml 1 Ml Vial) 5,000 unit SQ Q12HR [facility] Last Admin: 08/22/24 09:06 Dose: 5,000 unit Insulin Aspart (Insulin Aspart (Novolog) 100 Unit/Ml Vial) 0 unit SQ ACHS [facility]; Protocol Last Admin: 08/22/24 17:09 Dose: Not Given Insulin Detemir (Insulin Detemir (Levemir) 100 Unit/Ml Syr) 20 unit SQ DAILY@0700 [facility] Last Admin: 08/22/24 06:50 Dose: 20 unit Isosorbide Mononitrate (Isosorbide Mononitrate Er 30 Mg Tab.Er.24h) 30 mg PO DAILY [facility] Last Admin: 08/22/24 09:05 Dose: 30 mg Metoprolol Succinate (Metoprolol Succinate (Er) 100 Mg Tab.Er.24h) 100 mg PO DAILY [facility] Last Admin: 08/22/24 09:06 Dose: 100 mg Montelukast Sodium (Montelukast 10 Mg Tab) 10 mg PO HS [facility] Last Admin: 08/21/24 22:55 Dose: 10 mg Morphine Sulfate (Morphine Sulfate 4 Mg/Ml Syringe) 4 mg IVP Q4HR PRN PRN Reason: Pain Last Admin: 08/17/24 21:59 Dose: 4 mg Naloxone HCl (Naloxone 0.4 Mg/Ml 1 Ml Vial) 0.2 mg IV Q2M PRN PRN Reason: Opioid Reversal Nitroglycerin (Nitroglycerin Sl Tabs 0.4 Mg Tab) 0.4 mg SUBLINGUAL Q5M PRN PRN Reason: Chest Pain Ondansetron HCl (Ondansetron 4 Mg/2 Ml Vial) 4 mg IVP Q8HR PRN PRN Reason: Nausea And Vomiting Pioglitazone HCl (Pioglitazone 30 Mg Tab) 30 mg PO DAILY [facility] Last Admin: 08/22/24 09:05 Dose: 30 mg Sacubitril/Valsartan (Sacubitril/Valsartan 24 Mg-26 Mg Tablet) 1 each PO BID [facility] Spironolactone (Spironolactone 25 Mg Tab) 12.5 mg PO DAILY [facility] Last Admin: 08/22/24 09:05 Dose: 12.5 mg On examination: VITAL SIGNS: 98.4, 84, 17, 115 x 68, 97% room air GENERAL APPEARANCE: BMI 41.1, comfortable HEENT: Normal external appearance of nose and ear. Oral cavity normal EYES: Pupils equal. Conjunctiva normal. NECK: JVD not raised. Mass not palpable. RESPIRATORY: Respiratory effort normal. Lungs clear to auscultation. CARDIOVASCULAR: First and second sounds normal. No edema. ABDOMEN: Soft. Liver and spleen not palpable. No tenderness. No mass palpable. PSYCHIATRY: Alert and oriented x3. Mood and affect normal. NEUROLOGICAL: Left facial numbness, some weakness on the left side. Decreased coordination of the left arm. Speech slightly slow INVESTIGATIONS, reviewed in the clinical context: MOE: Moderate MR. No thrombus. No shunt. MRI brain without contrast [August 19] acute/subacute CVA involving the right thalamus and the right occipital and medial right temporal lobe August 18: White count 10.5 hemoglobin 13.3 platelets 241 sodium 139 BUN 16 creatinine 0.7 EKG tracing: Sinus tachycardia. Nonspecific T wave changes CT angio head and neck with IV contrast: Nothing acute reported 2D echocardiogram: EF 30-35%. Moderate LVH. Apical wall hypokinesis. Mild to moderate MR. Cardiac catheterization: Severe triple-vessel disease Assessment plan: -Non--STEMI. cardiac catheterization by Dr. Rosalie Bello. Severe triple-vessel CAD. Patient felt to be high risk for bypass because of subacute CVA. Plavix. Toprol-XL. Cozaar. -Severe triple-vessel disease per cardiac catheterization. High risk for bypass because of subacute stroke. Being followed by cardiothoracic team -Subacute ischemic stroke manifesting left homonymous hemianopsia, left hemiataxia. Symptoms were present for several days MRI brain:acute/subacute CVA involving the right thalamus and the right occipital and medial right temporal lobe Possible embolic stroke. MOE: Negative for shunt and negative for thrombus Plavix. Lipitor. Being followed by neurology -Acute ischemic cardiomyopathy. EF 30 to 35% Cozaar. Aldactone -Diabetes mellitus type 2 on insulin, Levemir, 20 units daily. Actos. Glipizide. Follow Accu-Cheks. -Essential hypertension Cozaar. Imdur. Toprol-XL. -Morbid obesity BMI 41.1 Weight loss measures -Hyperlipidemia Lipitor -Acute gait dysfunction secondary to left-sided weakness Seen by PT OT. Recommended IPR -Peripheral neuropathy Gabapentin -DNR Repeat labs. Pending DC to rehab.
[2024-08-22 20:27] LABS: Glucose,Whole Blood 150 mg/dL (70-110)
[2024-08-22] MEDS: DAPAGLIFLOZIN PROPANEDIOL 10 MG TABLET PO SCH (21:06)
[2024-08-23 03:49] LABS: Basophils # (A) 0.1 k/uL (0-0.2); Basophils % (A) 1 %; Eosinophils # (A) 0.4 k/uL (0-0.7); Eosinophils % (A) 4 %; HCT 42.3 % (34.0-46.0); HGB 14.6 gm/dL (11.4-16.0); Lymphocytes # (A) 2.9 k/uL (1.0-4.8); Lymphocytes % (A) 25 %; MCH 31.7 pg (25.0-35.0); MCHC 34.6 g/dL (31.0-37.0); MCV 91.6 fL (80.0-100.0); Mean Platelet Volume 8.8; Monocytes # (A) 0.9 k/uL (0-1.0); Monocytes % (A) 8 %; Neutrophils # (A) 6.9 k/uL (1.3-7.7); Neutrophils % (A) 60 %; Platelet Count 270 k/uL (150-450); RBC 4.63 m/uL (3.80-5.40); RDW 12.9 % (11.5-15.5); WBC 11.5 k/uL (3.8-10.6)
[2024-08-23 04:11] LABS: African American GFR (CKD) 86 (>60 ml/min/1.73 sqM); Anion Gap 6 mmol/L; Blood Urea Nitrogen 26 mg/dL (7-17); Calcium 9.3 mg/dL (8.4-10.2); Carbon Dioxide 23 mmol/L (22-30); Chloride 110 mmol/L (98-107); Glucose 98 mg/dL (74-99); Non-African American GFR(CKD) 75 (>60 ml/min/1.73 sqM); Potassium 4.3 mmol/L (3.5-5.1); Sodium 139 mmol/L (137-145)
[2024-08-23 06:35] LABS: Glucose,Whole Blood 112 mg/dL (70-110)
[2024-08-23] MEDS: SACUBITRIL/VALSARTAN 24 MG-26 MG TABLET PO SCH (09:53)
--- NOTE | 2024-08-23 11:23 | P.PN ---
Subjective Progress Note Date: 08/22/24 Patient was seen for a follow-up. Patient continues to have left arm ataxia. Vision still affected with complete left homonymous hemianopia. Patient cannot walk. Patient also has slight numbness of the left side. Objective - Vital Signs Vital signs: Vital Signs Temp 98.4 F 08/22/24 13:41 Pulse 84 08/22/24 13:41 Resp 17 08/22/24 13:41 BP 115/68 08/22/24 13:41 Pulse Ox 97 08/22/24 13:41 FiO2 Intake & Output 08/21/24 08/22/24 08/22/24 18:59 06:59 18:59 Output Total 1000 250 Balance -1000 -250 Weight 124.5 kg Output: Urine 1000 250 Other: Voiding Method Incontinent Incontinent Incontinent External Catheter External Catheter External Catheter # Voids 1 4 # Bowel Movements 1 - Exam Patient is alert and awake in no distress. Speech and language functions are normal. Examination again significant for left homonymous hemianopia, complete. Sensory decreased in the left arm and left leg as compared to the right, but equal on the face bilaterally. Patient has ataxia in the left upper and left lower extremity. Muscle strength is normal except left deltoid which is 5-. Patient has left pronator drift about 45 degree. - Labs CBC & Chem 7: 08/23/24 03:11 08/23/24 03:11 Labs: Abnormal Lab Results - Last 24 Hours (Table) 08/21/24 08/22/24 08/22/24 Range/Units 22:02 06:32 11:54 POC Glucose (mg/dL) 137 H 175 H 205 H (70-110) mg/dL 08/22/24 Range/Units 16:53 POC Glucose (mg/dL) 113 H (70-110) mg/dL Assessment and Plan Assessment: * Acute/subacute ischemic stroke, involving the right thalamus and right occipital and medial right temporal lobe. Patient has presented with left homonymous hemianopia and left hemiataxia. Patient's current NIH score scale is 6. Patient is not a candidate for TNK, as she came outside the window for TNK. Her symptoms have been present for last several days. * Acute non-STEMI * Triple-vessel disease * New onset headache, unclear cause. * Hypertension * Diabetes * Hyperlipidemia * Obesity * History of essential tremor. Plan: * CT head reported chronic, small vessel ischemic change in the white matter, particularly in the right periventricular region. On my review, could be perhaps late subacute. Patient also has left homonymous hemianopia, which would not be explained from this periventricular lesion. Need to rule out another acute ischemic CVA involving the left cerebellum and or right occipital region. Rule out embolic events from cardiac source. * CTA of head and neck revealed no dissection, occlusion or stenosis of greater than 50%. CTA of the head showed no evidence of aneurysm, severe stenosis or major intracranial branch occlusion. Mild increased lung density in the pos terior aspects of both upper lung quevedo. This may represent some diffuse dependent mild atelectasis. * MRI of the brain revealed acute/subacute CVA involving the right thalamus and right occipital and medial right temporal lobe. Nonspecific white matter changes, likely secondary to small vessel ischemic disease. I personally reviewed MRI agree with the findings. * Heparin has been discontinued, patient started on Plavix 75 mg daily. Patient cannot take aspirin because of allergy. * Patient has triple-vessel disease, and is being considered for possible coronary artery bypass surgery. Currently on hold because of acute stroke and nonambulatory status at this time. * 2D echo revealed LVEF 30 to 35%. Moderate concentric LVH. Apical vaughn hypokinetic. Normal right atrial size. Normal left atrial size. No thrombus. Mild to moderate MR. Mild TR. * Transesophageal echocardiogram revealed no intracardiac thrombus within the left atrial appendage, left atrium, right atrium, right ventricle or left ventricle. There is no evidence of left to right shunt by color-flow Doppler or [id number] shunt by agitated saline contrast study. Moderate to severe MR. Aortic valve is free of stenosis or regurgitation. LVH with EF 45%. Inferior wall appears hypokinetic. * We will defer to cardiology management regarding moderate to severe MR. * Consider 30-day event monitor outpatient to rule out paroxysmal atrial fibrillation. * Fasting a.m. lipid panel with cholesterol 223, LDL 102, HDL 27 and tr iglycerides 644. Patient started on Lipitor 80 mg daily. Patient not on statins at home. * Hemoglobin A1c 12.7, consistent with poorly controlled diabetes. Recommend optimize control of diabetes to target A1c <7.0. * Telemetry monitoring, rule out PAF. * DVT prophylaxis: Heparin 5000 units subcu every 12 hour * Neurochecks every 4 hours. * Neurologically clear for transfer to inpatient rehab. Awaiting insurance authorization. Neurology will sign off. Please reconsult neurology if any concerns.
[2024-08-23 11:49] LABS: Glucose,Whole Blood 139 mg/dL (70-110)
--- NOTE | 2024-08-23 16:43 | P.PN ---
Progress Note - Text Progress Note Date: 08/23/24 Presenting complaint: Tired Hospital course: Admitted with non-STEMI. Cardiac catheterization with Dr. Rogelio Bello showed severe triple-vessel disease. 2D echo showed EF of 30-35%. Patient also felt to have subacute ischemic stroke as per neurology. Hence IV heparin was discontinued. Patient was seen by cardiothoracic team patient not felt to be a candidate for surgery at this time. May be down the road. August 18: Up in recliner. Some improvement in the vision and speech. Eating fair. Decree sensation on the left side. Some left-sided weakness. Patient sister at the bedside. Feels her speech is slightly off. Pending MRI. Seen by PT OT. Poor standing balance. For IP rehab August 19: No change in neurodeficits. MRI of the brain showing multiple areas of ischemia. Will consult cardiology for MOE to rule out a thrombotic source. Discussed with patient August 20: Patient underwent MOE this morning by Dr. Rosalie Bello. No [id number]-[id number] shunt. Patient found to have some mitral valve prolapse with moderate to severe central MR. Some LVH. No thrombus. Spoke to licensed clinical social worker. Pending rehab placement. August 21: Comfortable. No new issues. Per licensed clinical social worker pending rehab placement. August 22: Tolerating diet. Awaiting placement. Otherwise comfortable. August 23: Comfortable. No new issues. Pending rehab. She feels some improvement in the left field of vision Active Medications Acetaminophen (Acetaminophen Tab 325 Mg Tab) 650 mg PO Q6HR PRN PRN Reason: Fever and/or Mild Pain Last Admin: 08/22/24 09:14 Dose: 650 mg Albuterol/Ipratropium (Ipratropium-Albuterol 3 Ml Neb) 3 ml INHALATION RT-QID PRN PRN Reason: Shortness Of Breath Or Wheezing Alprazolam (Alprazolam 0.25 Mg Tab) 0.25 mg PO Q6HR PRN PRN Reason: Mild Anxiety Alprazolam (Alprazolam 0.5 Mg Tab) 0.5 mg PO Q6HR PRN PRN Reason: Moderate Anxiety Last Admin: 08/19/24 09:24 Dose: 0.5 mg Atorvastatin Calcium (Atorvastatin 80 Mg Tab) 80 mg PO HS JOANIE Last Admin: 08/22/24 20:33 Dose: 80 mg Benzocaine (Benzocaine [place] 1 Can) 1 spray TOPICAL TID PRN PRN Reason: Skin Irritation Clopidogrel Bisulfate (Clopidogrel 75 Mg Tab) 75 mg PO DAILY [facility] Last Admin: 08/23/24 10:01 Dose: 75 mg Dapagliflozin (Dapagliflozin Propanediol 10 Mg Tablet) 10 mg PO DAILY [facility] Last Admin: 08/23/24 10:00 Dose: 10 mg Dextrose/Water (Dextrose 50% Syringe 50 Ml) 25 ml IVP PER PROTOCOL PRN; Protocol PRN Reason: Hypoglycemia Dextrose/Water (Dextrose 50% Syringe 50 Ml) 50 ml IVP PER PROTOCOL PRN; Protocol PRN Reason: Hypoglycemia Gabapentin (Gabapentin 300 Mg Cap) 600 mg PO QID [facility] Last Admin: 08/23/24 12:39 Dose: 600 mg Glipizide (Glipizide 10 Mg Tab) 10 mg PO BID [facility] Last Admin: 08/23/24 10:01 Dose: 10 mg Heparin Sodium (Porcine) (Heparin Sodium,Porcine 5,000 Unit/Ml 1 Ml Vial) 5,000 unit SQ Q12HR [facility] Last Admin: 08/23/24 10:02 Dose: 5,000 unit Insulin Aspart (Insulin Aspart (Novolog) 100 Unit/Ml Vial) 0 unit SQ ACHS [facility]; Protocol Last Admin: 08/23/24 12:37 Dose: Not Given Insulin Detemir (Insulin Detemir (Levemir) 100 Unit/Ml Syr) 20 unit SQ DAILY@0700 [facility] Last Admin: 08/23/24 07:09 Dose: 20 unit Isosorbide Mononitrate (Isosorbide Mononitrate Er 30 Mg Tab.Er.24h) 30 mg PO DAILY [facility] Last Admin: 08/23/24 09:59 Dose: 30 mg Metoprolol Succinate (Metoprolol Succinate (Er) 100 Mg Tab.Er.24h) 100 mg PO DAILY [facility] Last Admin: 08/23/24 10:03 Dose: 100 mg Montelukast Sodium (Montelukast 10 Mg Tab) 10 mg PO HS [facility] Last Admin: 08/22/24 20:33 Dose: 10 mg Morphine Sulfate (Morphine Sulfate 4 Mg/Ml Syringe) 4 mg IVP Q4HR PRN PRN Reason: Pain Last Admin: 08/17/24 21:59 Dose: 4 mg Naloxone HCl (Naloxone 0.4 Mg/Ml 1 Ml Vial) 0.2 mg IV Q2M PRN PRN Reason: Opioid Reversal Nitroglycerin (Nitroglycerin Sl Tabs 0.4 Mg Tab) 0.4 mg SUBLINGUAL Q5M PRN PRN Reason: Chest Pain Ondansetron HCl (Ondansetron 4 Mg/2 Ml Vial) 4 mg IVP Q8HR PRN PRN Reason: Nausea And Vomiting Pioglitazone HCl (Pioglitazone 30 Mg Tab) 30 mg PO DAILY [facility] Last Admin: 08/23/24 10:03 Dose: 30 mg Sacubitril/Valsartan (Sacubitril/Valsartan 24 Mg-26 Mg Tablet) 1 each PO BID [facility] Last Admin: 08/23/24 09:59 Dose: 1 each Spironolactone (Spironolactone 25 Mg Tab) 12.5 mg PO DAILY [facility] Last Admin: 08/23/24 09:59 Dose: 12.5 mg On examination: VITAL SIGNS: 99.2, 86, 17, 116 x 65, 96% room air GENERAL APPEARANCE: In a recliner. Comfortable HEENT: Normal external appearance of nose and ear. Oral cavity normal EYES: Pupils equal. Conjunctiva normal. NECK: JVD not raised. Mass not palpable. RESPIRATORY: Respiratory effort normal. Lungs clear to auscultation. CARDIOVASCULAR: First and second sounds normal. No edema. ABDOMEN: Soft. Liver and spleen not palpable. No tenderness. No mass palpable. PSYCHIATRY: Alert and oriented x3. Mood and affect normal. NEUROLOGICAL: Left facial numbness, some weakness on the left side. Decreased coordination of the left arm. Speech slightly slow INVESTIGATIONS, reviewed in the clinical context: August 23: White: 0.5 hemoglobin 14.6 platelets 270 potassium 4.3 creatinine 0.84 MOE: Moderate MR. No thrombus. No shunt. MRI brain without contrast [August 19] acute/subacute CVA involving the right thalamus and the right occipital and medial right temporal lobe August 18: White count 10.5 hemoglobin 13.3 platelets 241 sodium 139 BUN 16 creatinine 0.7 EKG tracing: Sinus tachycardia. Nonspecific T wave changes CT angio head and neck with IV contrast: Nothing acute reported 2D echocardiogram: EF 30-35%. Moderate LVH. Apical wall hypokinesis. Mild to moderate MR. Cardiac catheterization: Severe triple-vessel disease Assessment plan: -Non--STEMI. cardiac catheterization by Dr. Rosalie Bello. Severe triple-vessel CAD. Patient felt to be high risk for bypass because of subacute CVA. Plavix. Toprol-XL. Cozaar. -Severe triple-vessel disease per cardiac catheterization. High risk for bypass because of subacute stroke. Being followed by cardiothoracic team -Subacute ischemic stroke manifesting left homonymous hemianopsia, left hemiataxia. Symptoms were present for several days MRI brain:acute/subacute CVA involving the right thalamus and the right occipital and medial right temporal lobe Possible embolic stroke. MOE: Negative for shunt and negative for thrombus Plavix. Lipitor. Being followed by neurology -Acute ischemic cardiomyopathy. EF 30 to 35% Cozaar. Aldactone -Diabetes mellitus type 2 on insulin, Levemir, 20 units daily. Actos. Glipizide. Follow Accu-Cheks. -Essential hypertension Cozaar. Imdur. Toprol-XL. -Morbid obesity BMI 41.1 Weight loss measures -Hyperlipidemia Lipitor -Acute gait dysfunction secondary to left-sided weakness Seen by PT OT. Recommended IPR -Peripheral neuropathy Gabapentin -DNR Stable. Pending rehab
[2024-08-23 16:51] LABS: Glucose,Whole Blood 186 mg/dL (70-110)
[2024-08-23 21:02] LABS: Glucose,Whole Blood 203 mg/dL (70-110)
--- NOTE | 2024-08-24 00:09 | P.PN ---
Subjective Progress Note Date: 08/22/24 HISTORY OF PRESENT ILLNESS: This is a 63-year-old female who does not follow with a family dinner service specialist on an o utpatient basis. Patient is admitted to the hospital secondary to non-STEMI. Patient underwent cardiac catheterization yesterday with Dr. Bello revealing severe triple-vessel coronary artery disease. Echocardiogram completed revealing ejection fraction 30 to 35%, apical wall hypokinesis, mild to moderate mitral regurgitation, and mild tricuspid regurgitation. Patient was evaluated by neurology yesterday with possibility of subacute ischemic stroke. Patient's IV heparin has since been discontinued. She has been evaluated by CT surgery and deemed not to be a surgical candidate at this time. Plan is for patient to recover from her acute issues and will be reevaluated in the future for CABG. Patient examined this morning at the bedside. She currently denies any chest pain or pressure. She denies any shortness of breath. She states that her vision and headache are improving compared to yesterday. Vital signs are stable. Telemetry reveals sinus mechanism. 08/19/2024 Patient examined this morning at the bedside. Patient patient currently denies chest pain or pressure. She denies shortness of breath. She reports improvement in her vision and also her headache. She states she is feeling better overall today. Blood pressures remain elevated this morning at 159/83. 08/20/2024 Patient examined this morning the bedside. Patient states her symptoms are continuing to improve. She denies any chest pain or pressure. She denies any shortness of breath. Patient states she has been able to get up and ambulate to the bathroom and to the chair. MRI reveals acute/subacute CVA involving right thalamus and right occipital and medial right temporal lobe. Telemetry reveals sinus mechanism. Blood pressure stable. Most recent reading 134/71. 08/21 Patient is seen and examined has been transferred to the [facility] floor. Yesterday, patient underwent MOE that showed no intracardiac thrombus, no evidence of left to right shunt, aortic root appears normal, mitral valve with prolapse with moderate to severe central mitral regurgitation, mild tricuspid regurgitation. Aortic valve is free of stenosis or regurgitation. Left ventricular hypertrophy with a EF of 45%. Inferior wall appeared hypokinetic. Blood pressure 154/71, heart rate 89, pulse ox 95% on room air. Patient is waiting for insurance authorization for inpatient rehab. She states that she had a brief episode of chest pain this morning but it is gone away. 08/22/2024 As send patient is awaiting insurance authorization for inpatient/outpatient rehab. She denies any active chest pain chest pressure. She appears euvolemic at this time. PHYSICAL EXAM: VITAL SIGNS: Reviewed. GENERAL: Well-developed in no acute distress. NECK: Supple. No JVD or thyromegaly LUNGS: Respirations even and unlabored. Lungs essentially clear to auscultation bilaterally. HEART: Regular rate and rhythm. S1 and S2 heard. EXTREMITIES: Normal range of motion. No clubbing or cyanosis. Peripheral pulses intact. 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 Plan is for patient to recover from her acute issues and will be reevaluated in the future for CABG Continue Plavix 75 mg daily. She is unable to take aspirin secondary to allergy of hives and itching. Continue high intensity statin. LDL goal less than 70. Continue additional cardiac medications Neurology following Patient currently does not follow outpatient with a family dinner service specialist. Postdischarge, patient will follow-up in the office with Dr. Bello. Patient will be set up for event monitor at her follow up appointment. Objective - Vital Signs Vital signs: Vital Signs Temp 98.6 F 08/23/24 20:21 Pulse 82 08/23/24 20:21 Resp 17 08/23/24 20:21 BP 110/72 08/23/24 20:21 Pulse Ox 98 08/23/24 20:21 FiO2 Intake & Output 08/23/24 08/23/24 08/24/24 06:59 18:59 06:59 Intake Total 1080 Output Total 1000 600 Balance 80 -600 Weight 130.5 kg Intake: Oral 1080 Output: Urine 1000 600 Other: Voiding Method Incontinent Incontinent External Catheter External Catheter # Voids 1 # Bowel Movements 1 - Labs CBC & Chem 7: 08/23/24 03:11 08/23/24 03:11 Labs: Abnormal Lab Results - Last 24 Hours (Table) 08/23/24 08/23/24 08/23/24 Range/Units 03:11 03:11 06:33 WBC 11.5 H (3.8-10.6) k/uL Chloride 110 H (98-107) mmol/L BUN 26 H (7-17) mg/dL POC Glucose (mg/dL) 112 H (70-110) mg/dL 08/23/24 08/23/24 08/23/24 Range/Units 11:48 16:49 21:00 WBC (3.8-10.6) k/uL Chloride (98-107) mmol/L BUN (7-17) mg/dL POC Glucose (mg/dL) 139 H 186 H 203 H (70-110) mg/dL
--- NOTE | 2024-08-24 00:13 | P.PN ---
Subjective Progress Note Date: 08/23/24 HISTORY OF PRESENT ILLNESS: This is a 63-year-old female who does not follow with a graduate student instructor on an o utpatient basis. Patient is admitted to the hospital secondary to non-STEMI. Patient underwent cardiac catheterization yesterday with Dr. Bello revealing severe triple-vessel coronary artery disease. Echocardiogram completed revealing ejection fraction 30 to 35%, apical wall hypokinesis, mild to moderate mitral regurgitation, and mild tricuspid regurgitation. Patient was evaluated by neurology yesterday with possibility of subacute ischemic stroke. Patient's IV heparin has since been discontinued. She has been evaluated by CT surgery and deemed not to be a surgical candidate at this time. Plan is for patient to recover from her acute issues and will be reevaluated in the future for CABG. Patient examined this morning at the bedside. She currently denies any chest pain or pressure. She denies any shortness of breath. She states that her vision and headache are improving compared to yesterday. Vital signs are stable. Telemetry reveals sinus mechanism. 08/19/2024 Patient examined this morning at the bedside. Patient patient currently denies chest pain or pressure. She denies shortness of breath. She reports improvement in her vision and also her headache. She states she is feeling better overall today. Blood pressures remain elevated this morning at 159/83. 08/20/2024 Patient examined this morning the bedside. Patient states her symptoms are continuing to improve. She denies any chest pain or pressure. She denies any shortness of breath. Patient states she has been able to get up and ambulate to the bathroom and to the chair. MRI reveals acute/subacute CVA involving right thalamus and right occipital and medial right temporal lobe. Telemetry reveals sinus mechanism. Blood pressure stable. Most recent reading 134/71. 08/21 Patient is seen and examined has been transferred to the [facility] floor. Yesterday, patient underwent MOE that showed no intracardiac thrombus, no evidence of left to right shunt, aortic root appears normal, mitral valve with prolapse with moderate to severe central mitral regurgitation, mild tricuspid regurgitation. Aortic valve is free of stenosis or regurgitation. Left ventricular hypertrophy with a EF of 45%. Inferior wall appeared hypokinetic. Blood pressure 154/71, heart rate 89, pulse ox 95% on room air. Patient is waiting for insurance authorization for inpatient rehab. She states that she had a brief episode of chest pain this morning but it is gone away. 08/22/2024 As send patient is awaiting insurance authorization for inpatient/outpatient rehab. She denies any active chest pain chest pressure. She appears euvolemic at this time. 08/23/2024 With addition of Entresto blood pressure is better controlled. Creatinine is stable. PHYSICAL EXAM: VITAL SIGNS: Reviewed. GENERAL: Well-developed in no acute distress. NECK: Supple. No JVD or thyromegaly LUNGS: Respirations even and unlabored. Lungs essentially clear to auscultation bilaterally. HEART: Regular rate and rhythm. S1 and S2 heard. EXTREMITIES: Normal range of motion. No clubbing or cyanosis. Peripheral pulses intact. No lower extremity edema ASSESSMENT: Non-STEMI, status post cardiac catheterization revealing severe triple-vessel coronary artery disease, high risk for CABG secondary to subacute CVA and being nonambulatory Ischemic cardiomyopathy, 30 to 35% Acute/subacute CVA involving right thalamus and right occipital and medial right temporal lobe Headache Hypertension Hyperlipidemi, severely elevated triglycerides Diabetes Morbid obesity: BMI 41.1 Former nicotine dependence Allergy to aspirin Nonambulatory secondary to neuropathy per patient PLAN: Currently on Plavix 75 mg daily. Allergic to aspirin Entresto 24/26 mg twice daily Farxiga 10 mg daily Lipitor 80 mg daily Consider reducing dose of Actos as Actos can cause fluid retention especially cardiomyopathy patients. She has been evaluated by CT surgery and deemed not to be a surgical candidate at this time due to patient being nonambulatory and suspected subacute CVA. Plan is for patient to recover from her acute issues and will be reevaluated in the future for CABG At this time patient is cleared from cardiac standpoint. Cardiology team will sign off. Please reconsult us in case of any questions. She needs close outpatient follow-up within next 1 week and close surgical follow-up. Objective - Vital Signs Vital signs: Vital Signs Temp 98.6 F 08/23/24 20:21 Pulse 82 08/23/24 20:21 Resp 17 08/23/24 20:21 BP 110/72 08/23/24 20:21 Pulse Ox 98 08/23/24 20:21 FiO2 Intake & Output 08/23/24 08/23/24 08/24/24 06:59 18:59 06:59 Intake Total 1080 Output Total 1000 600 Balance 80 -600 Weight 130.5 kg Intake: Oral 1080 Output: Urine 1000 600 Other: Voiding Method Incontinent Incontinent External Catheter External Catheter # Voids 1 # Bowel Movements 1 - Labs CBC & Chem 7: 08/23/24 03:11 08/23/24 03:11 Labs: Abnormal Lab Results - Last 24 Hours (Table) 08/23/24 08/23/24 08/23/24 Range/Units 03:11 03:11 06:33 WBC 11.5 H (3.8-10.6) k/uL Chloride 110 H (98-107) mmol/L BUN 26 H (7-17) mg/dL POC Glucose (mg/dL) 112 H (70-110) mg/dL 08/23/24 08/23/24 08/23/24 Range/Units 11:48 16:49 21:00 WBC (3.8-10.6) k/uL Chloride (98-107) mmol/L BUN (7-17) mg/dL POC Glucose (mg/dL) 139 H 186 H 203 H (70-110) mg/dL
[2024-08-24 06:56] LABS: Glucose,Whole Blood 114 mg/dL (70-110)
[2024-08-24 11:25] LABS: Glucose,Whole Blood 196 mg/dL (70-110)
[2024-08-24 16:16] LABS: Glucose,Whole Blood 234 mg/dL (70-110)
[2024-08-24 20:52] LABS: Glucose,Whole Blood 193 mg/dL (70-110)
--- NOTE | 2024-08-24 21:14 | P.PN ---
Progress Note - Text Progress Note Date: 08/24/24 Presenting complaint: Tired Hospital course: Admitted with non-STEMI. Cardiac catheterization with Dr. Rogelio Bello showed severe triple-vessel disease. 2D echo showed EF of 30-35%. Patient also felt to have subacute ischemic stroke as per neurology. Hence IV heparin was discontinued. Patient was seen by cardiothoracic team patient not felt to be a candidate for surgery at this time. May be down the road. August 18: Up in recliner. Some improvement in the vision and speech. Eating fair. Decree sensation on the left side. Some left-sided weakness. Patient sister at the bedside. Feels her speech is slightly off. Pending MRI. Seen by PT OT. Poor standing balance. For IP rehab August 19: No change in neurodeficits. MRI of the brain showing multiple areas of ischemia. Will consult cardiology for MOE to rule out a thrombotic source. Discussed with patient August 20: Patient underwent MOE this morning by Dr. Rosalie Bello. No [id number] shunt. Patient found to have some mitral valve prolapse with moderate to severe central MR. Some LVH. No thrombus. Spoke to social service agency director. Pending rehab placement. August 21: Comfortable. No new issues. Per social service agency director pending rehab placement. August 22: Tolerating diet. Awaiting placement. Otherwise comfortable. August 23: Comfortable. No new issues. Pending rehab. She feels some improvement in the left field of vision August 24: No new issues. Some improvement in the left field of vision. Spoke to social service agency director. Still pending rehab. Active Medications Acetaminophen (Acetaminophen Tab 325 Mg Tab) 650 mg PO Q6HR PRN PRN Reason: Fever and/or Mild Pain Last Admin: 08/22/24 09:14 Dose: 650 mg Albuterol/Ipratropium (Ipratropium-Albuterol 3 Ml Neb) 3 ml INHALATION RT-QID PRN PRN Reason: Shortness Of Breath Or Wheezing Alprazolam (Alprazolam 0.25 Mg Tab) 0.25 mg PO Q6HR PRN PRN Reason: Mild Anxiety Alprazolam (Alprazolam 0.5 Mg Tab) 0.5 mg PO Q6HR PRN PRN Reason: Moderate Anxiety Last Admin: 08/19/24 09:24 Dose: 0.5 mg Atorvastatin Calcium (Atorvastatin 80 Mg Tab) 80 mg PO HS [facility] Last Admin: 08/23/24 21:49 Dose: 80 mg Benzocaine (Benzocaine [place] 1 Can) 1 spray TOPICAL TID PRN PRN Reason: Skin Irritation Clopidogrel Bisulfate (Clopidogrel 75 Mg Tab) 75 mg PO DAILY [facility] Last Admin: 08/24/24 10:07 Dose: 75 mg Dapagliflozin (Dapagliflozin Propanediol 10 Mg Tablet) 10 mg PO DAILY [facility] Last Admin: 08/24/24 10:07 Dose: 10 mg Dextrose/Water (Dextrose 50% Syringe 50 Ml) 25 ml IVP PER PROTOCOL PRN; Protocol PRN Reason: Hypoglycemia Dextrose/Water (Dextrose 50% Syringe 50 Ml) 50 ml IVP PER PROTOCOL PRN; Protocol PRN Reason: Hypoglycemia Gabapentin (Gabapentin 300 Mg Cap) 600 mg PO QID [facility] Last Admin: 08/24/24 17:46 Dose: 600 mg Glipizide (Glipizide 10 Mg Tab) 10 mg PO BID [facility] Last Admin: 08/24/24 10:07 Dose: 10 mg Heparin Sodium (Porcine) (Heparin Sodium,Porcine 5,000 Unit/Ml 1 Ml Vial) 5,000 unit SQ Q12HR [facility] Last Admin: 08/24/24 10:07 Dose: 5,000 unit Insulin Aspart (Insulin Aspart (Novolog) 100 Unit/Ml Vial) 0 unit SQ [facility]; Protocol Last Admin: 08/24/24 17:46 Dose: 4 unit Insulin Detemir (Insulin Detemir (Levemir) 100 Unit/Ml Syr) 20 unit SQ DAILY@0700 [facility] Last Admin: 08/24/24 07:00 Dose: 20 unit Isosorbide Mononitrate (Isosorbide Mononitrate Er 30 Mg Tab.Er.24h) 30 mg PO DAILY [facility] Last Admin: 08/24/24 10:07 Dose: 30 mg Metoprolol Succinate (Metoprolol Succinate (Er) 100 Mg Tab.Er.24h) 100 mg PO DAILY [facility] Last Admin: 08/24/24 10:08 Dose: 100 mg Montelukast Sodium (Montelukast 10 Mg Tab) 10 mg PO HS [facility] Last Admin: 08/23/24 21:49 Dose: 10 mg Morphine Sulfate (Morphine Sulfate 4 Mg/Ml Syringe) 4 mg IVP Q4HR PRN PRN Reason: Pain Last Admin: 08/17/24 21:59 Dose: 4 mg Naloxone HCl (Naloxone 0.4 Mg/Ml 1 Ml Vial) 0.2 mg IV Q2M PRN PRN Reason: Opioid Reversal Nitroglycerin (Nitroglycerin Sl Tabs 0.4 Mg Tab) 0.4 mg SUBLINGUAL Q5M PRN PRN Reason: Chest Pain Ondansetron HCl (Ondansetron 4 Mg/2 Ml Vial) 4 mg IVP Q8HR PRN PRN Reason: Nausea And Vomiting Pioglitazone HCl (Pioglitazone 30 Mg Tab) 30 mg PO DAILY [facility] Last Admin: 08/24/24 10:08 Dose: 30 mg Sacubitril/Valsartan (Sacubitril/Valsartan 24 Mg-26 Mg Tablet) 1 each PO BID [facility] Last Admin: 08/24/24 10:06 Dose: 1 each Spironolactone (Spironolactone 25 Mg Tab) 12.5 mg PO DAILY [facility] Last Admin: 08/24/24 10:06 Dose: 12.5 mg On examination: VITAL SIGNS: 98.3, 78, 17, 113 x 68, 94% room air GENERAL APPEARANCE: Laying in bed. Comfortable HEENT: Normal external appearance of nose and ear. Oral cavity normal EYES: Pupils equal. Conjunctiva normal. NECK: JVD not raised. Mass not palpable. RESPIRATORY: Respiratory effort normal. Lungs clear to auscultation. CARDIOVASCULAR: First and second sounds normal. No edema. ABDOMEN: Soft. Liver and spleen not palpable. No tenderness. No mass palpable. PSYCHIATRY: Alert and oriented x3. Mood and affect normal. NEUROLOGICAL: Left facial numbness, some weakness on the left side. Decreased coordination of the left arm. Speech slightly slow INVESTIGATIONS, reviewed in the clinical context: August 23: White: 0.5 hemoglobin 14.6 platelets 270 potassium 4.3 creatinine 0.84 MOE: Moderate MR. No thrombus. No shunt. MRI brain without contrast [August 19] acute/subacute CVA involving the right thalamus and the right occipital and medial right temporal lobe August 18: White count 10.5 hemoglobin 13.3 platelets 241 sodium 139 BUN 16 creatinine 0.7 EKG tracing: Sinus tachycardia. Nonspecific T wave changes CT angio head and neck with IV contrast: Nothing acute reported 2D echocardiogram: EF 30-35%. Moderate LVH. Apical wall hypokinesis. Mild to moderate MR. Cardiac catheterization: Severe triple-vessel disease Assessment plan: -Non--STEMI. cardiac catheterization by Dr. Rosalie Bello. Severe triple-vessel CAD. Patient felt to be high risk for bypass because of subacute CVA. Plavix. Toprol-XL. Cozaar. -Severe triple-vessel disease per cardiac catheterization. High risk for bypass because of subacute stroke. Being followed by cardiothoracic team -Subacute ischemic stroke manifesting left homonymous hemianopsia, left hemiataxia. Symptoms were present for several days MRI brain:acute/subacute CVA involving the right thalamus and the right occipital and medial right temporal lobe Possible embolic stroke. MOE: Negative for shunt and negative for thrombus Plavix. Lipitor. Being followed by neurology -Acute ischemic cardiomyopathy. EF 30 to 35% Cozaar. Aldactone -Diabetes mellitus type 2 on insulin, Levemir, 20 units daily. Actos. Glipizide. Follow Accu-Cheks. -Essential hypertension Cozaar. Imdur. Toprol-XL. -Morbid obesity BMI 41.1 Weight loss measures -Hyperlipidemia Lipitor -Acute gait dysfunction secondary to left-sided weakness Seen by PT OT. Recommended IPR -Peripheral neuropathy Gabapentin -DNR Discussed with patient and case monitor. Pending rehab.
[2024-08-25 06:33] LABS: Glucose,Whole Blood 141 mg/dL (70-110)
[2024-08-25 11:51] LABS: Glucose,Whole Blood 126 mg/dL (70-110)
--- NOTE | 2024-08-25 13:23 | P.DS ---
Providers Date of admission: 08/16/24 23:46 Expected date of discharge: 08/25/24 Attending physician: Kaiser Mathew Consults: 08/16/24 23:44 Consult Physician Routine Consulting Provider: Hernan Roblero Consult Reason/Comments: paresthesia Do you want consulting provider notified?: Yes 08/17/24 06:15 Consult Physician Routine Consulting Provider: Damon Miranda Consult Reason/Comments: NSTEMI Do you want consulting provider notified?: Yes 08/17/24 10:47 Consult Physician Routine Consulting Provider: Lai Leon Consult Reason/Comments: cabg eval Do you want consulting provider notified?: Yes 08/18/24 10:00 Consult Physician Routine Consulting Provider: Gonzalez Barragan Consult Reason/Comments: Eval for IPR Do you want consulting provider notified?: Yes 08/19/24 11:22 Consult Physician Routine Consulting Provider: Watson Bello Consult Reason/Comments: Moe Do you want consulting provider notified?: Yes Primary care physician: Gume Johnson Hospital Course: Presenting complaint: Tired Hospital course: Admitted with non-STEMI. Cardiac catheterization with Dr. Rogelio Bello showed severe triple-vessel disease. 2D echo showed EF of 30-35%. Patient also felt to have subacute ischemic stroke as per neurology. Hence IV heparin was discontinued. Patient was seen by cardiothoracic team patient not felt to be a candidate for surgery at this time. May be down the road. August 18: Up in recliner. Some improvement in the vision and speech. Eating fair. Decree sensation on the left side. Some left-sided weakness. Patient sister at the bedside. Feels her speech is slightly off. Pending MRI. Seen by PT OT. Poor standing balance. For IP rehab August 19: No change in neurodeficits. MRI of the brain showing multiple areas of ischemia. Will consult cardiology for MOE to rule out a thrombotic source. Discussed with patient August 20: Patient underwent MOE this morning by Dr. Rosalie Bello. No [id number] shunt. Patient found to have some mitral valve prolapse with moderate to severe central MR. Some LVH. No thrombus. Spoke to psychiatric social worker. Pending rehab placement. August 21: Comfortable. No new issues. Per psychiatric social worker pending rehab placement. August 22: Tolerating diet. Awaiting placement. Otherwise comfortable. August 23: Comfortable. No new issues. Pending rehab. She feels some improvement in the left field of vision August 24: No new issues. Some improvement in the left field of vision. Spoke to psychiatric social worker. Still pending rehab. August 25: Comfortable. Patient been accepted at rehab. Discussed with patient. On examination: VITAL SIGNS: 98.6, 72, 20, 138 x 82, 95% room air GENERAL APPEARANCE: Laying in bed. Comfortable HEENT: Normal external appearance of nose and ear. Oral cavity normal EYES: Pupils equal. Conjunctiva normal. NECK: JVD not raised. Mass not palpable. RESPIRATORY: Respiratory effort normal. Lungs clear to auscultation. CARDIOVASCULAR: First and second sounds normal. No edema. ABDOMEN: Soft. Liver and spleen not palpable. No tenderness. No mass palpable. PSYCHIATRY: Alert and oriented x3. Mood and affect normal. NEUROLOGICAL: Left facial numbness, some weakness on the left side. Decreased coordination of the left arm. Speech slightly slow INVESTIGATIONS, reviewed in the clinical context: August 23: White: 0.5 hemoglobin 14.6 platelets 270 potassium 4.3 creatinine 0.84 MOE: Moderate MR. No thrombus. No shunt. MRI brain without contrast [August 19] acute/subacute CVA involving the right thalamus and the right occipital and medial right temporal lobe August 18: White count 10.5 hemoglobin 13.3 platelets 241 sodium 139 BUN 16 creatinine 0.7 EKG tracing: Sinus tachycardia. Nonspecific T wave changes CT angio head and neck with IV contrast: Nothing acute reported 2D echocardiogram: EF 30-35%. Moderate LVH. Apical wall hypokinesis. Mild to moderate MR. Cardiac catheterization: Severe triple-vessel disease Assessment plan: -Non--STEMI. cardiac catheterization by Dr. Rosalie Bello. Severe triple-vessel CAD. Patient felt to be high risk for bypass because of subacute CVA. Plavix. Toprol-XL. Cozaar. -Severe triple-vessel disease per cardiac catheterization. High risk for bypass because of subacute stroke. Being followed by cardiothoracic team -Subacute ischemic stroke manifesting left homonymous hemianopsia, left hemiataxia. Symptoms were present for several days MRI brain:acute/subacute CVA involving the right thalamus and the right occipital and medial right temporal lobe Possible embolic stroke. MOE: Negative for shunt and negative for thrombus Plavix. Lipitor. Being followed by neurology -Acute ischemic cardiomyopathy. EF 30 to 35% Cozaar. Aldactone -Diabetes mellitus type 2 on insulin, Levemir, 20 units daily. Actos. Glipizide. Follow Accu-Cheks. -Essential hypertension Cozaar. Imdur. Toprol-XL. -Morbid obesity BMI 41.1 Weight loss measures -Hyperlipidemia Lipitor -Acute gait dysfunction secondary to left-sided weakness Seen by PT OT. IPR -Peripheral neuropathy Gabapentin -DNR Disposition: [facility], rehab Plan - Discharge Summary Discharge Rx Participant: No New Discharge Prescriptions: New Ipratropium-Albuterol Nebulize [Duoneb 0.5 mg-3 mg/3 ml Soln] 3 ml INHALATION RT-QID PRN each PRN Reason: Shortness Of Breath Or Wheezing Insulin Detemir (Levemir) [Levemir] 20 unit SQ DAILY@0700 each Atorvastatin [Lipitor] 80 mg PO HS tab Nitroglycerin Sl Tabs [Nitrostat] 0.4 mg SUBLINGUAL Q5M PRN tab PRN Reason: Chest Pain INSULIN ASPART (NovoLOG) [NovoLOG (formulary)] 0 unit SQ ACHS each Clopidogrel [Plavix] 75 mg PO DAILY tab Dapagliflozin Propanediol [Farxiga] 10 mg PO DAILY tab Spironolactone [Aldactone] 12.5 mg PO DAILY tab Losartan [Cozaar] 50 mg PO DAILY tab Isosorbide Mononitrate ER [Imdur] 30 mg PO DAILY tab Metoprolol Succinate (ER) [Toprol XL] 100 mg PO DAILY tab Acetaminophen Tab [Tylenol] 650 mg PO Q6HR PRN tab PRN Reason: Fever And/Or Mild Pain Sacubitril/Valsartan [Entresto 24 mg-26 mg Tablet] 1 each PO BID tab Continue Montelukast [Singulair] 10 mg PO HS Gabapentin 600 mg PO QID glipiZIDE 10 mg PO BID Pioglitazone [Actos] 30 mg PO DAILY Furosemide [Lasix] 20 mg PO DAILY Discontinued Spironolactone [Aldactone] 100 mg PO DAILY Metoprolol Succinate [Toprol XL] 200 mg PO DAILY Losartan Potassium [Cozaar] 100 mg PO DAILY Triamterene/Hydrochlorothiazid [Triamterene-Hctz 37.5-25 mg Tb] 1 tab PO DAILY Discharge Medication List Furosemide [Lasix] 20 mg PO DAILY 08/17/24 [History] Gabapentin 600 mg PO QID 08/17/24 [History] Montelukast [Singulair] 10 mg PO HS 08/17/24 [History] Pioglitazone [Actos] 30 mg PO DAILY 08/17/24 [History] glipiZIDE 10 mg PO BID 08/17/24 [History] Acetaminophen Tab [Tylenol] 650 mg PO Q6HR PRN tab 08/21/24 [Rx] Atorvastatin [Lipitor] 80 mg PO HS tab 08/21/24 [Rx] Clopidogrel [Plavix] 75 mg PO DAILY tab 08/21/24 [Rx] INSULIN ASPART (NovoLOG) [NovoLOG (formulary)] 0 unit SQ ACHS each 08/21/24 [Rx] Insulin Detemir (Levemir) [Levemir] 20 unit SQ DAILY@0700 each 08/21/24 [Rx] Ipratropium-Albuterol Nebulize [Duoneb 0.5 mg-3 mg/3 ml Soln] 3 ml INHALATION RT-QID PRN each 08/21/24 [Rx] Isosorbide Mononitrate ER [Imdur] 30 mg PO DAILY tab 08/21/24 [Rx] Losartan [Cozaar] 50 mg PO DAILY tab 08/21/24 [Rx] Metoprolol Succinate (ER) [Toprol XL] 100 mg PO DAILY tab 08/21/24 [Rx] Nitroglycerin Sl Tabs [Nitrostat] 0.4 mg SUBLINGUAL Q5M PRN tab 08/21/24 [Rx] Spironolactone [Aldactone] 12.5 mg PO DAILY tab 08/21/24 [Rx] Dapagliflozin Propanediol [Farxiga] 10 mg PO DAILY tab 08/24/24 [Rx] Sacubitril/Valsartan [Entresto 24 mg-26 mg Tablet] 1 each PO BID tab 08/24/24 [Rx] Follow up Appointment(s)/Referral(s): Raissa Dexter MD [REFERRING] - 3 Weeks None,Stated [REFERRING] - 1-2 days Helen Zayas NPC [Family Provider] - 2 Weeks Watson Bello MD [STAFF PHYSICIAN] - 1 Week
[2024-08-25 14:42] VITALS: BP 124/64; PULSE 80; RESP 18; TEMP 98.4
== END 2024-08-25 14:59 | DRG 190 ==
LOC: EC 21:25 → 6NMEDSUR 23:45 → OBSVTOIN 23:46 → 3SCARD 23:55 → 4SSUR 08-20 18:49
PROVIDERS: ADMIT Hospitalist; ATTEND Hospitalist
PROC: 4A023N7 Measurement of Cardiac Sampling and Pressure, Left Heart, Percutaneous Approach (ICD-10-PCS; principal; 2024-08-17 16:35)
PROC: B2111ZZ Fluoroscopy of Multiple Coronary Arteries using Low Osmolar Contrast (ICD-10-PCS; principal; 2024-08-17 16:35)
PROC: B24BZZ4 Ultrasonography of Heart with Aorta, Transesophageal (ICD-10-PCS; 2024-08-20)
DX: I21.4 Non-ST elevation (NSTEMI) myocardial infarction (principal); I63.531 Cerebral infarction due to unspecified occlusion or stenosis of right posterior cerebral artery; G32.81 Cerebellar ataxia in diseases classified elsewhere; E11.65 Type 2 diabetes mellitus with hyperglycemia; E11.42 Type 2 diabetes mellitus with diabetic polyneuropathy; E66.01 Morbid (severe) obesity due to excess calories; Z68.41 Body mass index [BMI] 40.0-44.9, adult; H53.462 Homonymous bilateral field defects, left side; I11.9 Hypertensive heart disease without heart failure; Z66 Do not resuscitate; E86.0 Dehydration; J45.909 Unspecified asthma, uncomplicated; I08.1 Rheumatic disorders of both mitral and tricuspid valves; E03.9 Hypothyroidism, unspecified; I25.10 Atherosclerotic heart disease of native coronary artery without angina pectoris; I25.5 Ischemic cardiomyopathy; E78.1 Pure hyperglyceridemia; R29.700 NIHSS score 0; R29.706 NIHSS score 6; G25.0 Essential tremor; R27.0 Ataxia, unspecified; M62.81 Muscle weakness (generalized); Z79.84 Long term (current) use of oral hypoglycemic drugs; Z88.6 Allergy status to analgesic agent; Z87.891 Personal history of nicotine dependence; Z75.1 Person awaiting admission to adequate facility elsewhere; Z79.899 Other long term (current) drug therapy
CPT/HCPCS: 36415; 51702; 70450; 70496; 70498; 70551; 80048; 80053; 80061; 83036; 83605; 83721; 83735; 83880; 84100; 84484; 85025; 85379; 85610; 85730; 93005; 93306; 93312; 93320; 93325; 93458; 94760; 96361; 96365; 96366; 96375; 99285

== ENCOUNTER 2024-10-12 21:26 | Inpatient (IN) | payer OTHER ==
[2024-10-12 21:33] LABS: Glucose,Whole Blood 104 mg/dL (70-110)
--- NOTE | 2024-10-12 21:40 | ED ---
General Adult HPI - General Chief complaint: Extremity Problem,Nontraumatic Stated complaint: numbness Time Seen by Provider: 10/12/24 21:29 Source: patient, EMS Mode of arrival: EMS - History of Present Illness Initial comments: Dictation was produced using [employer] dictation software. please excuse any grammatical, word or spelling errors. Chief Complaint: 64-year-old female with strokelike symptoms History of Present Illness: Patient is a 64-year-old female presents to the emergency department for strokelike symptoms. She went to bed around 11 PM last night feeling in her usual state of health. She woke up this morning at around 8 or 9 AM with left-sided numbness tingling and weakness. Was recently hospitalized for ischemic stroke in August. Patient states that her symptoms improved to the point where she almost felt like she was normal until this morning when she woke up with the symptoms she thought her symptoms would get better. Denies any pain complaints. No neck pain no arm pain. She states that her previous stroke had affected her left leg. The ROS documented in this emergency department record has been reviewed and confirmed by me. Those systems with pertinent positive or negative responses have been documented in the HPI. All other systems are other negative and/or noncontributory. - Related Data Home Medications Medication Instructions Recorded Confirmed Furosemide [Lasix] 20 mg PO DAILY 08/17/24 08/17/24 Gabapentin 600 mg PO QID 08/17/24 08/17/24 Montelukast [Singulair] 10 mg PO HS 08/17/24 08/17/24 Pioglitazone [Actos] 30 mg PO DAILY 08/17/24 08/17/24 glipiZIDE 10 mg PO BID 08/17/24 08/17/24 Previous Rx's Medication Instructions Recorded Acetaminophen Tab [Tylenol] 650 mg PO Q6HR PRN tab 08/21/24 Atorvastatin [Lipitor] 80 mg PO HS tab 08/21/24 Clopidogrel [Plavix] 75 mg PO DAILY tab 08/21/24 INSULIN ASPART (NovoLOG) [NovoLOG 0 unit SQ ACHS each 08/21/24 (formulary)] Insulin Detemir (Levemir) [Levemir] 20 unit SQ DAILY@0700 each 08/21/24 Ipratropium-Albuterol Nebulize 3 ml INHALATION RT-QID PRN each 08/21/24 [Duoneb 0.5 mg-3 mg/3 ml Soln] Isosorbide Mononitrate ER [Imdur] 30 mg PO DAILY tab 08/21/24 Losartan [Cozaar] 50 mg PO DAILY tab 08/21/24 Metoprolol Succinate (ER) [Toprol 100 mg PO DAILY tab 08/21/24 XL] Nitroglycerin Sl Tabs [Nitrostat] 0.4 mg SUBLINGUAL Q5M PRN tab 08/21/24 Spironolactone [Aldactone] 12.5 mg PO DAILY tab 08/21/24 Dapagliflozin Propanediol [Farxiga] 10 mg PO DAILY tab 08/24/24 Sacubitril/Valsartan [Entresto 24 1 each PO BID tab 08/24/24 mg-26 mg Tablet] Allergies Allergy/AdvReac Type Severity Reaction Status Date / Time aspirin Allergy Itching Verified 10/12/24 21:32 Penicillins Allergy Swelling/Ra Verified 10/12/24 21:32 sh/Hives/It pan Review of Systems ROS Statement: Those systems with pertinent positive or pertinent negative responses have been documented in the HPI. ROS Other: All systems not noted in ROS Statement are negative. Past Medical History Past Medical History: Asthma, CVA/TIA, Diabetes Mellitus, Hyperlipidemia, Hypertension Additional Past Medical History / Comment(s): Peripheral neuropathy. Morbid obesity with a BMI of 41.6 kg/m. History of Any Multi-Drug Resistant Organisms: None Reported Past Surgical History: Cholecystectomy, Hysterectomy Past Anesthesia/Blood Transfusion Reactions: No Reported Reaction Past Psychological History: Depression Smoking Status: Former smoker Past Alcohol Use History: None Reported Past Drug Use History: None Reported - Past Family History Mother Family Medical History: Hypertension Additional Family Medical History / Comment(s): Pulmonary hypertension, scleroderma, chronic kidney disease Father Family Medical History: Myocardial Infarction ([place]) Additional Family Medical History / Comment(s): CABG surgery in his mid 60s General Exam - General Exam Comments Initial Comments: PHYSICAL EXAM: General Impression: Alert and oriented x3, not in acute distress HEENT: Normocephalic atraumatic, extra-ocular movements intact, pupils equal and reactive to light bilaterally, mucous membranes moist. Cardiovascular: Heart regular rate and rhythm Chest: Able to complete full sentences, no retractions, no tachypnea Abdomen: abdomen soft, non-tender, non-distended, no organomegaly Musculoskeletal: Pulses present and equal in all extremities, no peripheral edema Motor: no focal deficits noted Neurological: CN II-XII grossly intact, weakness and sensory deficit to light touch of the left arm and left leg, drift of the left arm and left leg, NIH score of 4 Skin: Intact with no visualized rashes Psych: Normal affect and mood Course Vital Signs 10/12/24 10/12/24 10/12/24 21:28 22:07 22:22 Temperature 98.5 F Pulse Rate 68 66 65 Respiratory 20 16 16 Rate Blood Pressure 193/98 177/93 169/69 O2 Sat by Pulse 98 96 97 Oximetry 10/12/24 22:37 Temperature Pulse Rate 65 Respiratory 18 Rate Blood Pressure 168/93 O2 Sat by Pulse 97 Oximetry - Reevaluation(s) Reevaluation #1: 10/12/24 22:51 Discussed with stroke neurologist, Dr. Cruz who recommends medical management. EKG Findings - EKG Comments: EKG Findings:: My EKG interpretation: Ventricular rate 60, sinus rhythm, DE 173, QRS 90, QTc 416. Interpretation limited due to significant artifact in lead I, aVL, lead III, aVF and lateral precordial leads.. No obvious DE prolongation, no QTC prolongation, no ST or T-wave changes noted. Overall, this EKG is specific. Medical Decision Making - Medical Decision Making Was pt. sent in by a medical professional or institution (, PA, ARTIFICIAL BREEDING DISTRIBUTOR, urgent care, hospital, or senior living...) When possible be specific @ -No Did you speak to anyone other than the patient for history (EMS, parent, family, police, friend...)? What history was obtained from this source @ -No Did you review nursing and triage notes (agree or disagree)? Why? @ -I reviewed and agree with nursing and triage notes Were old charts reviewed (outside hosp., previous admission, EMS record, old EKG, old radiological studies, urgent care reports/EKG's, senior living records)? Report findings @ -No old charts were reviewed Differential Diagnosis (chest pain, altered mental status, abdominal pain women, abdominal pain men, vaginal bleeding, musculoskeletal, weakness, fever, dyspnea, syncope, headache, dizziness, GI bleed, back pain, seizure, CVA, palpatations, mental health)? @ - Differential CVA: Ischemic stroke, hemorrhagic stroke, brain tumor, atypical migraine, Wernicke's encephalopathy, seizure, multiple sclerosis, meningitis, encephalitis, hypoglycemia, Guillain-Mao, electrolytes disturbance, myasthenia gravis.... This is not meant to be an all-inclusive list EKG interpreted by me (3pts min.). @ -See above X-rays interpreted by me (1pt min.). @ -Chest x-ray is nonacute CT interpreted by me (1pt min.). @ -CT brain shows evolving subacute infarct. CT angiography head and neck shows no large vessel occlusion U/S interpreted by me (1pt. min.). @ -None done What testing was considered but not performed or refused? (CT, X-rays, U/S, labs)? Why? @ -None What meds were considered but not given or refused? Why? @ -Thrombolytics was considered however patient not a candidate due to time of onset Was smoking cessation discussed for >3mins.? @ -No Were there social determinants of health that impacted care today? How? (Homelessness, low income, unemployed, alcoholism, drug addiction, transportation, low edu. Level, literacy, decrease access to med. care, half-way, rehab)? @ -No Was there de-escalation of care discussed even if they declined (Discuss DNR or withdrawal of care, Hospice)? DNR status @ -No What co-morbidities impacted this encounter? (DM, HTN, Smoking, COPD, CAD, Cancer, CVA, ARF, Chemo, Hep., AIDS, mental health diagnosis, sleep apnea, morbid obesity)? @ -History of CVA Was patient admitted / discharged? Hospital course, mention meds given and route, prescriptions, significant lab abnormalities, going to OR and other pertinent info. @ -64-year-old female presents with strokelike symptoms. Patient's symptoms began this morning. She was last known well last night at around 11 PM when she went to bed. Patient outside the window of any aggressive treatment. Code stroke paged. Patient not a candidate for thrombolytics or thrombectomy. Case discussed with stroke neurologist who is agreeable. Imaging study shows evolving left subacute infarct. CT angiography shows no large large vessel occlusion. Labs are unremarkable. Patient given aspirin will be admitted with consultation to neurology. Case discussed with hospitalist for admission Did you discuss the management of the patient with other professionals (professionals i.e. , PA, ARTIFICIAL BREEDING DISTRIBUTOR, lab, RT, psych nurse, health care social worker, wool hat flanger, teacher, customer service officer, case management social worker)? Give summary @ -See above Was critical care preformed (if so, how long)? @ -yes, 33 minutes Undiagnosed new problem with uncertain prognosis? @ -No Drug Therapy requiring intensive monitoring for toxicity (Heparin, Nitro, Insulin, Cardizem)? @ -No Were any procedures done? @ -No Diagnosis/symptom? Acute, or Chronic, or Acute on Chronic? Uncomplicated (without systemic symptoms) or Complicated (systemic symptoms)? @ -CVA Side effects of treatment? @ -No Exacerbation, Progression, or Severe Exacerbation? @ -No Poses a threat to life or bodily function? How? (Chest pain, [place], [place], pneumonia, PE, COPD, DKA, ARF, appy, cholecystitis, CVA, Diverticulitis, Homicidal, Suicidal, threat to staff... and all critical care pts) @ -yes - Lab Data Result diagrams: 10/12/24 22:07 10/12/24 22:07 Lab Results 10/12/24 10/12/24 10/12/24 Range/Units 21:32 22:07 22:07 WBC 8.6 (3.8-10.6) k/uL RBC 4.46 (3.80-5.40) m/uL Hgb 14.3 (11.4-16.0) gm/dL Hct 42.4 (34.0-46.0) % MCV 95.2 (80.0-100.0) fL MCH 32.1 (25.0-35.0) pg MCHC 33.8 (31.0-37.0) g/dL RDW 13.7 (11.5-15.5) % Plt Count 234 (150-450) k/uL MPV 8.2 Neutrophils % 57 % Lymphocytes % 29 % Monocytes % 8 % Eosinophils % 3 % Basophils % 1 % Neutrophils # 4.9 (1.3-7.7) k/uL Lymphocytes # 2.5 (1.0-4.8) k/uL Monocytes # 0.7 (0-1.0) k/uL Eosinophils # 0.2 (0-0.7) k/uL Basophils # 0.1 (0-0.2) k/uL PT 10.5 (10.0-12.5) sec INR 0.9 (<1.2) APTT 24.3 (22.0-30.0) sec Sodium (137-145) mmol/L Potassium (3.5-5.1) mmol/L Chloride (98-107) mmol/L Carbon Dioxide (22-30) mmol/L Anion Gap mmol/L BUN (7-17) mg/dL Creatinine (0.52-1.04) mg/dL Est GFR (CKD-EPI)AfAm (>60 ml/min/1.73 sqM) Est GFR (CKD-EPI)NonAf (>60 ml/min/1.73 sqM) Glucose (74-99) mg/dL POC Glucose (mg/dL) 104 (70-110) mg/dL POC Glu Spray Dry Operator ID Alaina Luis Calcium (8.4-10.2) mg/dL Total Bilirubin (0.2-1.3) mg/dL AST (14-36) U/L ALT (4-34) U/L Alkaline Phosphatase (38-126) U/L Creatine Kinase (30-135) U/L Troponin I (0.000-0.034) ng/mL Total Protein (6.3-8.2) g/dL Albumin (3.5-5.0) g/dL 10/12/24 10/12/24 Range/Units 22:07 22:07 WBC (3.8-10.6) k/uL RBC (3.80-5.40) m/uL Hgb (11.4-16.0) gm/dL Hct (34.0-46.0) % MCV (80.0-100.0) fL MCH (25.0-35.0) pg MCHC (31.0-37.0) g/dL RDW (11.5-15.5) % Plt Count (150-450) k/uL MPV Neutrophils % % Lymphocytes % % Monocytes % % Eosinophils % % Basophils % % Neutrophils # (1.3-7.7) k/uL Lymphocytes # (1.0-4.8) k/uL Monocytes # (0-1.0) k/uL Eosinophils # (0-0.7) k/uL Basophils # (0-0.2) k/uL PT (10.0-12.5) sec INR (<1.2) APTT (22.0-30.0) sec Sodium 139 (137-145) mmol/L Potassium 3.9 (3.5-5.1) mmol/L Chloride 106 (98-107) mmol/L Carbon Dioxide 26 (22-30) mmol/L Anion Gap 7 mmol/L BUN 22 H (7-17) mg/dL Creatinine 0.82 (0.52-1.04) mg/dL Est GFR (CKD-EPI)AfAm 88 (>60 ml/min/1.73 sqM) Est GFR (CKD-EPI)NonAf 77 (>60 ml/min/1.73 sqM) Glucose 112 H (74-99) mg/dL POC Glucose (mg/dL) (70-110) mg/dL POC Glu Spray Dry Operator ID Calcium 9.4 (8.4-10.2) mg/dL Total Bilirubin 0.5 (0.2-1.3) mg/dL AST 35 (14-36) U/L ALT 28 (4-34) U/L Alkaline Phosphatase 56 (38-126) U/L Creatine Kinase 49 (30-135) U/L Troponin I <0.012 (0.000-0.034) ng/mL Total Protein 7.6 (6.3-8.2) g/dL Albumin 4.3 (3.5-5.0) g/dL Disposition Clinical Impression: CVA (cerebral vascular accident) Disposition: ADMITTED IP TO THIS HOSP Condition: Fair Decision Time: 23:44
--- NOTE | 2024-10-12 22:10 | XR ---
EXAMINATION TYPE: XR chest 2V DATE OF EXAM: 10/12/2024 9:59 PM CLINICAL INDICATION:Female, 64 years old with history of altered mental status; H COMPARISON: None TECHNIQUE: XR chest 2V Frontal view of the chest. FINDINGS: Lungs/Pleura: Patchy and hazy airspace opacities are seen in the bilateral lungs. No pneumothorax. Pulmonary vascularity: Unremarkable. Heart/mediastinum: Cardiac silhouette is enlarged. Musculoskeletal: No acute osseous pathology. Other findings: None IMPRESSION: Patchy and hazy airspace disease bilaterally. Mild cardiomegaly. [facility], , 10/12/2024 10:08 PM
[2024-10-12 22:13] LABS: Basophils # (A) 0.1 k/uL (0-0.2); Basophils % (A) 1 %; Eosinophils # (A) 0.2 k/uL (0-0.7); Eosinophils % (A) 3 %; HCT 42.4 % (34.0-46.0); HGB 14.3 gm/dL (11.4-16.0); Lymphocytes # (A) 2.5 k/uL (1.0-4.8); Lymphocytes % (A) 29 %; MCH 32.1 pg (25.0-35.0); MCHC 33.8 g/dL (31.0-37.0); MCV 95.2 fL (80.0-100.0); Mean Platelet Volume 8.2; Monocytes # (A) 0.7 k/uL (0-1.0); Monocytes % (A) 8 %; Neutrophils # (A) 4.9 k/uL (1.3-7.7); Neutrophils % (A) 57 %; Platelet Count 234 k/uL (150-450); RBC 4.46 m/uL (3.80-5.40); RDW 13.7 % (11.5-15.5); WBC 8.6 k/uL (3.8-10.6)
--- NOTE | 2024-10-12 22:14 | CT ---
ADDENDUM - Added by Mirza Hernandez MD on 10/12/2024 10:15 PM (-05:00) Right SLEEP LAB TECHNICIAN distribution infarct is chronic. This was present on MRI 08/19/2024. EXAM: CT Head Without Intravenous Contrast CLINICAL HISTORY: ITS.REASON CT Reason: Neuro deficit, acute, stroke suspected TECHNIQUE: Axial computed tomography images of the head/brain without intravenous contrast. CTDI is 48.9 mGy and DLP is 1134.8 mGy-cm. This CT exam was performed using one or more of the following dose reduction techniques: automated exposure control, adjustment of the mA and/or kV according to patient size, and/or use of iterative reconstruction technique. COMPARISON: 08/16/2024 FINDINGS: Brain: Evolving late subacute infarct in the right SLEEP LAB TECHNICIAN distribution. Moderate chronic low-attenuation foci in the cerebral white matter. There are some old lacunar infarcts in the deep white matter and gonzalez nuclei. No acute hemorrhage. Ventricles: No acute findings. No ventriculomegaly. Bones/joints: Hyperostosis frontalis. No acute fracture. Soft tissues: Unremarkable. Sinuses: Mild mucosal thickening in the right sphenoid sinus. There is some mucosal thickening in the right sphenoid sinus. Mastoid air cells: Unremarkable as visualized. No mastoid effusion. Nasal cavity/septum: There is some polypoid mucosal thickening in the nasal cavities along the ostiomeatal units. IMPRESSION: 1. Evolving late subacute infarct in the right SLEEP LAB TECHNICIAN distribution. 2. Moderate chronic small vessel ischemic disease.
--- NOTE | 2024-10-12 22:23 | CT ---
EXAM: CT Angiography Head With Intravenous Contrast CLINICAL HISTORY: ITS.REASON CT Reason: Neuro deficit, acute, stroke suspected TECHNIQUE: Axial computed tomographic angiography images of the head with intravenous contrast. CTDI is 31.55 mGy and DLP is 293.3 mGy-cm. This CT exam was performed using one or more of the following dose reduction techniques: automated exposure control, adjustment of the mA and/or kV according to patient size, and/or use of iterative reconstruction technique. MIP reconstructed images were created and reviewed. COMPARISON: 08/16/2024 FINDINGS: Right internal carotid artery: No acute findings. Intracranial segment is patent with no significant stenosis. No aneurysm. Right anterior cerebral artery: Absent/hypoplastic right A1 segment. Right middle cerebral artery: No occlusion or significant stenosis. No aneurysm. 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 Right vertebral artery: Unremarkable as visualized. Left internal carotid artery: No acute findings. Intracranial segment is patent with no significant stenosis. No aneurysm. Left anterior cerebral artery: Some atherosclerotic narrowings in the left anterior cerebral artery. Left middle cerebral artery: No occlusion or significant stenosis. No aneurysm. Left posterior cerebral artery: No occlusion or significant stenosis. No aneurysm. Left vertebral artery: Calcified plaque causes moderate short segment stenosis left intracranial vertebral artery. Basilar artery: No occlusion or significant stenosis. No aneurysm. IMPRESSION: 1. No acute large vessel occlusion or aneurysm. 2. 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 EXAM: CT Angiography Neck With Intravenous Contrast CLINICAL HISTORY: ITS.REASON CT Reason: Neuro deficit, acute, stroke suspected TECHNIQUE: Routine carotid CT angiography protocol was performed with intravenous contrast. NASCET criteria using the distal ICAs for comparison were used for evaluation of stenoses. CTDI is 31.55 mGy and DLP is 293.3 mGy-cm. This CT exam was performed using one or more of the following dose reduction techniques: automated exposure control, adjustment of the mA and/or kV according to patient size, and/or use of iterative reconstruction technique. MIP reconstructed images were created and reviewed. COMPARISON: 08/16/2024 FINDINGS: VASCULATURE: Right common carotid artery: No significant stenosis. No dissection or occlusion. Right internal carotid artery: 10% stenosis proximal right internal carotid artery. Calcified plaque in the carotid bifurcations and proximal internal carotid arteries. Right external carotid artery: No occlusion. Right vertebral artery: No significant stenosis. No dissection or occlusion. Left common carotid artery: No significant stenosis. No dissection or occlusion. Left internal carotid artery: 20% stenosis proximal left internal carotid artery. Left external carotid artery: No occlusion. Left vertebral artery: No significant stenosis. No dissection or occlusion. NECK: Bones/joints: No acute findings. Soft tissues: Unremarkable. Lung apices: No acute disease. CAROTID STENOSIS REFERENCE USING NASCET CRITERIA: % ICA stenosis = (1 - narrowest ICA diameter/diameter of distal cervical ICA) x 100. Mild - <50% stenosis. Moderate - 50-69% stenosis. Severe - 70-94% stenosis. Near occlusion - 95-99% stenosis. Occluded - 100% stenosis. IMPRESSION: No acute findings in the arteries of the neck.
[2024-10-12 22:35] LABS: INR 0.9 (<1.2); Partial Thromboplastin Time 24.3 sec (22.0-30.0); Prothrombin Time 10.5 sec (10.0-12.5)
[2024-10-12 22:40] LABS: ALT 28 U/L (4-34); AST 35 U/L (14-36); African American GFR (CKD) 88 (>60 ml/min/1.73 sqM); Albumin 4.3 g/dL (3.5-5.0); Alkaline Phosphatase 56 U/L (38-126); Anion Gap 7 mmol/L; Blood Urea Nitrogen 22 mg/dL (7-17); Calcium 9.4 mg/dL (8.4-10.2); Carbon Dioxide 26 mmol/L (22-30); Chloride 106 mmol/L (98-107); Creatine Kinase 49 U/L (30-135); Glucose 112 mg/dL (74-99); Non-African American GFR(CKD) 77 (>60 ml/min/1.73 sqM); Potassium 3.9 mmol/L (3.5-5.1); Sodium 139 mmol/L (137-145); Total Bilirubin 0.5 mg/dL (0.2-1.3); Total Protein 7.6 g/dL (6.3-8.2)
[2024-10-13] MEDS: ASPIRIN 81 MG PO STA (00:19)
[2024-10-13 08:51] LABS: Chol/HDL Ratio 3.16 Ratio
[2024-10-13 08:56] LABS: LDL Cholesterol,Calculated 62.2 mg/dL (0.0-131.0)
[2024-10-13] MEDS: TICAGRELOR 90 MG TAB PO STA (10:48)
[2024-10-13] MEDS: GABAPENTIN 300 MG CAP PO SCH (10:58)
[2024-10-13] MEDS: KETOROLAC 15 MG/ML 1 ML VIAL IVP PRN (10:59)
[2024-10-13] MEDS ORDERED: DEXTROSE 50% SYRINGE 50 ML IVP PRN ×2 (12:03)
[2024-10-13 12:15] LABS: Glucose,Whole Blood 143 mg/dL (70-110)
[2024-10-13] MEDS: INSULIN ASPART (NovoLOG) 100 UNIT/ML VIAL SQ SCH (12:32)
[2024-10-13] MEDS: CHOLECALCIFEROL 25 MCG (1000 IU) TABLET PO SCH (12:43)
[2024-10-13] MEDS: LORATADINE 10 MG TAB PO SCH (12:45)
[2024-10-13] MEDS: METOPROLOL SUCCINATE (ER) 100 MG TAB.ER.24H PO SCH (12:45)
[2024-10-13] MEDS: SACUBITRIL/VALSARTAN 24 MG-26 MG TABLET PO SCH (12:45)
[2024-10-13] MEDS: ISOSORBIDE MONONITRATE ER 30 MG TAB.ER.24H PO SCH (12:48)
[2024-10-13] MEDS: INSULIN DETEMIR (LEVEMIR) 100 UNIT/ML SYR SQ SCH (12:51)
--- NOTE | 2024-10-13 12:51 | P.CNNES ---
History of Present Illness Consult date: 10/13/24 Requesting physician: Adelso Salcedo Reason for Consult: cva History of Present Illness: This is a 64-year-old woman with history of right MANAGER TRAINEE stroke presented emergency department because of numbness and tingling over the left hand. Patient stated that she woke up yesterday at 8:00 in the morning and she noticed numbness and tingling over the left hand in the last normal was 11 PM the night prior. Patient is on Plavix 75 mg daily and she is compliant taking medication. She denies any neck pain. Denies any slurring of the speech. Is allergic to aspirin. Patient is on Lipitor 80 mg nightly is home medication Of note, patient was seen by our neurology team and August 2024 and she had acute subacute ischemic stroke over the right thalamus, occipital and temporal region. Patient had extensive cardiac workup. She was started on Plavix 75 mg daily. Please refer to our notes for further details. Some of the workup during this hospital visit consisted of: Lipid panel is triglycerides 229, cholesterol 158, LDL 62 and HDL is [address] of the head is reported as evolving late subacute infarct in the right MANAGER TRAINEE distribution. I personally reviewed the CT and I feel the right MANAGER TRAINEE stroke seems more subacute to chronic. There is no acute ischemic stroke. CT angiography of the head and neck is reported as chronic occlusion of the distal right P1 and P2 segment. Otherwise no large vessel occlusion or aneur ysm. NIH stroke scale was a 4 in the ED Code stroke was activated and per the ED physician stroke attending (Dr. Hernandez) commended medical management. Review of Systems As per HPI. Past Medical History Past Medical History: Asthma, CVA/TIA, Diabetes Mellitus, Hyperlipidemia, Hypertension Additional Past Medical History / Comment(s): Peripheral neuropathy. Morbid obesity with a BMI of 41.6 kg/m. History of Any Multi-Drug Resistant Organisms: None Reported Past Surgical History: Cholecystectomy, Hysterectomy Past Anesthesia/Blood Transfusion Reactions: No Reported Reaction Past Psychological History: Depression Smoking Status: Former smoker Past Alcohol Use History: None Reported Past Drug Use History: None Reported - Past Family History Mother Family Medical History: Hypertension Additional Family Medical History / Comment(s): Pulmonary hypertension, scleroderma, chronic kidney disease Father Family Medical History: Myocardial Infarction ([place]) Additional Family Medical History / Comment(s): CABG surgery in his mid 60s Medications and Allergies Home Medications Medication Instructions Recorded Confirmed Type Gabapentin 600 mg PO QID 08/17/24 10/13/24 History Acetaminophen Tab [Tylenol] 650 mg PO Q6HR PRN tab 08/21/24 10/13/24 Rx Atorvastatin [Lipitor] 80 mg PO HS tab 08/21/24 10/13/24 Rx Clopidogrel [Plavix] 75 mg PO DAILY tab 08/21/24 10/13/24 Rx Isosorbide Mononitrate ER [Imdur] 30 mg PO DAILY tab 08/21/24 10/13/24 Rx Metoprolol Succinate (ER) [Toprol 100 mg PO DAILY tab 08/21/24 10/13/24 Rx XL] Cholecalciferol [Vitamin D3 (25 50 mcg PO DAILY 10/13/24 10/13/24 History Mcg = 1000 Iu)] INSULIN LISPRO (HumaLOG) [humaLOG] See Protocol SQ ACHS 10/13/24 10/13/24 History Insulin Glargine [Lantus Vial] 16 unit SQ DAILY 10/13/24 10/13/24 History Loratadine [Claritin] 10 mg PO DAILY 10/13/24 10/13/24 History Sacubitril/Valsartan [Entresto 24 1 tab PO BID 10/13/24 10/13/24 History mg-26 mg Tablet] glipiZIDE [Glucotrol] 2.5 mg PO AC-BID 10/13/24 10/13/24 History traMADol HCl [Ultram] 50 mg PO Q6H PRN 10/13/24 10/13/24 History Allergies Allergy/AdvReac Type Severity Reaction Status Date / Time aspirin Allergy Itching Verified 10/13/24 10:08 Penicillins Allergy Swelling/Ra Verified 10/13/24 10:08 sh/Hives/It pan Physical Examination - Vital Signs Vital Signs: Vital Signs Temp Pulse Resp BP Pulse Ox 10/13/24 10:37 65 19 173/74 99 10/13/24 07:33 97.8 F 62 10 L 163/83 100 10/13/24 06:19 98.1 F 62 18 148/72 98 10/13/24 05:30 98.1 F 60 14 130/64 98 10/13/24 03:30 60 F L 60 14 175/81 99 10/13/24 02:30 97.7 F 58 L 14 150/81 99 10/13/24 02:15 58 L 14 157/74 97 10/13/24 01:30 97.8 F 64 18 142/81 96 10/13/24 00:30 98.4 F 70 18 160/81 96 10/12/24 23:30 98.4 F 68 20 177/89 98 10/12/24 23:22 97.8 F 82 20 157/110 97 10/12/24 23:07 97.8 F 77 20 192/94 97 10/12/24 22:37 65 18 168/93 97 10/12/24 22:22 65 16 169/69 97 10/12/24 22:07 66 16 177/93 96 10/12/24 21:28 98.5 F 68 20 193/98 98 Intake and Output 10/12/24 10/13/24 10/13/24 22:59 06:59 14:59 Output Total 900 Balance -900 Output: Urine 900 Other: # Voids 1 Weight 113.398 kg GENERAL: The patient is lying in bed and is not in acute distress. NEUROLOGICAL: Higher mental function: The patient is awake, alert, oriented to self, place and time. Patient is following commands. No aphasia and no neglect. Cranial nerves: The pupils are round, equal and reactive to light and accommodation. Visual quevedo is left homonymous hemianopsia to confrontation throughout. Extraocular movement is intact no nystagmus is noted. Facial sensation is normal to touch throughout. The facial strength is normal throughout. Hearing is normal bilaterally to hand rub. Tongue is midline and moved [id number] without any difficulty. No dysarthria is noted. Shoulder shrug is normal bilaterally. Motor: The strength is 5 over 5 throughout. Normal tone and bulk. Sensation: Decrease sensation to touch over the left upper extremity. Reflexes (right/left): 2+ throughout. Plantars: Mute bilaterally. Results - Laboratory Findings CBC and BMP: 10/12/24 22:07 10/12/24 22:07 Abnormal Lab Findings: Abnormal Labs 10/12/24 10/12/24 10/13/24 22:07 22:07 12:14 BUN 22 H Glucose 112 H POC Glucose (mg/dL) 143 H Triglycerides 229.00 H VLDL Cholesterol, Calc 45.80 H Assessment and Plan Assessment: This is a 64-year-old woman with history of right MANAGER TRAINEE stroke who presents emergency department because of left hand numbness and tingling. She had NIH stroke scale of 4 and code stroke was activated and per the stroke attending medical management. Likely acute ischemic stroke and patient has left paresthesia of the left hand. No IV thrombolytic since outside the window and the risk outweigh the benefit History of recent right MANAGER TRAINEE stroke in August 2024 and patient has residual left homonymous hemianposia. 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 History of non-STEMI History of essential tremor. History of triple-vessel disease Underlying history of hypertension Diabetes mellitus Hyperlipidemia Obesity Plan: Patient was on Plavix 75 mg daily which failed therefore I started the patient on Brilinta 90 mg daily with a loading dose of 180 mg once. Patient is resumed on her home dose of Lipitor 80 mg nightly. MRI of the brain is ordered and is pending Ordered a limited 2D echo Recommend 30-day event monitor Continue neurochecks Cardiac monitoring PT OT and POWER TONG OPERATOR are consulted Defer the rest of the medical management to primary other specialist For DVT prophylaxis I started the patient on subcu heparin 5000 units every 12 hours The plan is discussed with patient and primary team N.P. Thank you for the consultation. Time with Patient: Greater than 30
--- NOTE | 2024-10-13 13:44 | P.HPIM ---
History of Present Illness H&P Date: 10/13/24 This is a 64-year-old female who presents over from [facility] secondary to left- sided numbness and tingling. Patient has a past medical history significant for asthma, diabetes, hypertension, hyperlipidemia, peripheral neuropathy, obesity and a former smoker. Patient was recently admitted to the hospital for acute stroke with left-sided deficits at that time which have been mostly since resolved while she has been at rehab. Her brain MRI back in August revealed an acute/subacute stroke in the right thalamus right occipital lobe and the right medial temporal lobe. Patient was started on Plavix therapy as well as a high- dose statin discharge to subacute rehab. She underwent a full stroke work up her previous admission. Per the patient she went to bed about 11 PM last night when she awoke around 8 to 9:00 in the morning she had symptoms of left arm numbness and weakness which was new as compared to previous. She came into the hospital admitted under general medicine concern for stroke. Chest x-ray reveals patchy and hazy airspace disease bilaterally with mild cardiomegaly. Brain CT reveals evolving late subacute infarct in the right LIBRARIAN HEAD distribution with moderate chronic small vessel ischemic disease. CT angiography of the revealing no acute large vessel occlusion or aneurysm. Chronic occlusion in the distal right PA and P2 segment. No acute findings in the arteries in the neck. Was consulted and discussed with case with neurology recommending to repeat a brain MRI at this time. Additionally neurology has changed patient's plavix over to Brilinta patient is allergic to aspirin and she states that she is unable to take this medication. REVIEW OF SYSTEMS: CONSTITUTIONAL: No fever, no malaise, no fatigue. HEENT: No recent visual problems or hearing problems. Denied any sore throat. CARDIOVASCULAR: No chest pain, orthopnea, PND, no palpitations, no syncope. PULMONARY: No shortness of breath, no cough, no hemoptysis. GASTROINTESTINAL: No diarrhea, no nausea, no vomiting, no abdominal pain. NEUROLOGICAL: No headaches, Reports left arm tingling and parasthesias HEMATOLOGICAL: Denies any bleeding or petechiae. GENITOURINARY: Denies any burning micturition, frequency, or urgency. MUSCULOSKELETAL/RHEUMATOLOGICAL: Denies any joint pain, swelling, or any muscle pain. ENDOCRINE: Denies any polyuria or polydipsia. The rest of the 14-point review of systems is negative. PHYSICAL EXAMINATION: GENERAL: The patient is alert and oriented x3, not in any acute distress. Well developed, well nourished. HEENT: Pupils are round and equally reacting to light. EOMI. No scleral icterus. No conjunctival pallor. Normocephalic, atraumatic. No pharyngeal erythema. No thyromegaly. CARDIOVASCULAR: S1 and S2 present. No murmurs, rubs, or gallops. PULMONARY: Chest is clear to auscultation, no wheezing or crackles. ABDOMEN: Soft, nontender, nondistended, normoactive bowel sounds. No palpable organomegaly. MUSCULOSKELETAL: No joint swelling or deformity. EXTREMITIES: No cyanosis, clubbing, or pedal edema. NEUROLOGICAL: Mild left upper extremity weakness SKIN: No rashes. Assessment and Plan Left arm tingling and parasthesias mild weakness with brain CT revealing late evolving stroke in the right LIBRARIAN HEAD distribution. Recent stroke in August of 2024 with brain MRI revealing stroke in the right thalamus, right occipital, and right medial temporal lobe was discharged on plavix and high dose statin therapy Ischemic cardiomyopathy EF of 30 to 35% Diabetes mellitus type 2 insulin-dependent Hypertension Morbid obesity Hyperlipidemia Peripheral neuropathy GI prophylaxis DVT prophylaxis subcu heparin Plan Neurology consultation Repeat brain MRI Repeat echocardiogram Plavix has been discontinued patient has been started on Brilinta with loading dose given. Resume appropriate cardiac home medications Continue Accu-Cheks ACHS setting scale insulin and Lantus 16 units daily. Incentive spirometer 10 times an hour while awake PT OT consultation The impression and plan of care has been dictated by Patricia Cornejo, Nurse Practitioner as directed. Dr. Priya MD I have performed a history and physical examination and medical decision making of this patient, discussed the same with the dictator, and agree with the dictators assessment and plan as written, documented as a scribe. Based on total visit time, I have performed more than 50% of this visit. Past Medical History Past Medical History: Asthma, CVA/TIA, Diabetes Mellitus, Hyperlipidemia, Hypertension Additional Past Medical History / Comment(s): Peripheral neuropathy. Morbid obesity with a BMI of 41.6 kg/m. History of Any Multi-Drug Resistant Organisms: None Reported Past Surgical History: Cholecystectomy, Hysterectomy Past Anesthesia/Blood Transfusion Reactions: No Reported Reaction Past Psychological History: Depression Smoking Status: Former smoker Past Alcohol Use History: None Reported Past Drug Use History: None Reported - Past Family History Mother Family Medical History: Hypertension Additional Family Medical History / Comment(s): Pulmonary hypertension, scleroderma, chronic kidney disease Father Family Medical History: Myocardial Infarction ([place]) Additional Family Medical History / Comment(s): CABG surgery in his mid 60s Medications and Allergies Home Medications Medication Instructions Recorded Confirmed Type Gabapentin 600 mg PO QID 08/17/24 10/13/24 History Acetaminophen Tab [Tylenol] 650 mg PO Q6HR PRN tab 08/21/24 10/13/24 Rx Atorvastatin [Lipitor] 80 mg PO HS tab 08/21/24 10/13/24 Rx Clopidogrel [Plavix] 75 mg PO DAILY tab 08/21/24 10/13/24 Rx Isosorbide Mononitrate ER [Imdur] 30 mg PO DAILY tab 08/21/24 10/13/24 Rx Metoprolol Succinate (ER) [Toprol 100 mg PO DAILY tab 08/21/24 10/13/24 Rx XL] Cholecalciferol [Vitamin D3 (25 50 mcg PO DAILY 10/13/24 10/13/24 History Mcg = 1000 Iu)] INSULIN LISPRO (HumaLOG) [humaLOG] See Protocol SQ ACHS 10/13/24 10/13/24 History Insulin Glargine [Lantus Vial] 16 unit SQ DAILY 10/13/24 10/13/24 History Loratadine [Claritin] 10 mg PO DAILY 10/13/24 10/13/24 History Sacubitril/Valsartan [Entresto 24 1 tab PO BID 10/13/24 10/13/24 History mg-26 mg Tablet] glipiZIDE [Glucotrol] 2.5 mg PO AC-BID 10/13/24 10/13/24 History traMADol HCl [Ultram] 50 mg PO Q6H PRN 10/13/24 10/13/24 History Allergies Allergy/AdvReac Type Severity Reaction Status Date / Time aspirin Allergy Itching Verified 10/13/24 10:08 Penicillins Allergy Swelling/Ra Verified 10/13/24 10:08 sh/Hives/It pan Physical Exam Vitals: Vital Signs Temp Pulse Resp BP Pulse Ox 10/13/24 10:37 65 19 173/74 99 10/13/24 07:33 97.8 F 62 10 L 163/83 100 10/13/24 06:19 98.1 F 62 18 148/72 98 10/13/24 05:30 98.1 F 60 14 130/64 98 10/13/24 03:30 60 F L 60 14 175/81 99 10/13/24 02:30 97.7 F 58 L 14 150/81 99 10/13/24 02:15 58 L 14 157/74 97 10/13/24 01:30 97.8 F 64 18 142/81 96 10/13/24 00:30 98.4 F 70 18 160/81 96 10/12/24 23:30 98.4 F 68 20 177/89 98 10/12/24 23:22 97.8 F 82 20 157/110 97 10/12/24 23:07 97.8 F 77 20 192/94 97 10/12/24 22:37 65 18 168/93 97 10/12/24 22:22 65 16 169/69 97 10/12/24 22:07 66 16 177/93 96 10/12/24 21:28 98.5 F 68 20 193/98 98 Intake and Output 10/12/24 10/13/24 10/13/24 22:59 06:59 14:59 Output Total 900 Balance -900 Output: Urine 900 Other: # Voids 1 Weight 113.398 kg Results CBC & Chem 7: 10/12/24 22:07 10/12/24 22:07 Labs: Abnormal Lab Results - Last 24 Hours (Table) 10/12/24 10/12/24 10/13/24 Range/Units 22:07 22:07 12:14 BUN 22 H (7-17) mg/dL Glucose 112 H (74-99) mg/dL POC Glucose (mg/dL) 143 H (70-110) mg/dL Triglycerides 229.00 H (0.00-149.00) mg/dL VLDL Cholesterol, Calc 45.80 H (5.00-40.00) mg/dL Assessment and Plan Time with Patient: Less than 30
[2024-10-13 17:19] LABS: Glucose,Whole Blood 148 mg/dL (70-110)
[2024-10-13 20:57] LABS: Glucose,Whole Blood 129 mg/dL (70-110)
[2024-10-13] MEDS: TICAGRELOR 90 MG TAB PO SCH (21:35)
[2024-10-13] MEDS: HEPARIN SODIUM,PORCINE 5,000 UNIT/ML 1 ML VIAL SQ SCH (21:35)
[2024-10-13] MEDS: ATORVASTATIN 80 MG TAB PO SCH (21:35)
[2024-10-13] MEDS: traMADol 50 MG TAB PO PRN (21:35)
[2024-10-14 07:15] LABS: Glucose,Whole Blood 141 mg/dL (70-110)
[2024-10-14] MEDS: LORazepam 0.5 MG TAB PO PRN (08:53)
--- NOTE | 2024-10-14 10:26 | MR ---
EXAMINATION TYPE: MR brain wo con DATE OF EXAM: 10/14/2024 10:16 AM COMPARISON: 08/19/2024. CLINICAL INDICATION: Female, 64 years old with history of stroke; PHH, Left sided weakness, hx stroke . TECHNIQUE: Multi planar, multi sequence imaging was performed through the brain including: T1, T2, In version recovery, Diffusion weighted imaging, and gradient echo imaging. No gadolinium was given. FINDINGS: Evolving infarcts with decreased size of restricted diffusion within the right thalamus, ri ght temporal and right occipital lobes. Restricted diffusion is predominantly along the margins of pr ior infarct zone where it is seen no new discrete other different areas identified. Restricted diffus ion extension into the splenium of the corpus callosum. The gonzalez-white junctions, ventricular system, basal cisterns appear unremarkable. Scattered foci of high T2 signal intensity are seen within the periventricular white matter. Midline structures show no abnormality. Diffusion-weighted imaging cary ws no evidence of restricted diffusion. The susceptibility weighted images do not reveal any evidence for micro-hemorrhage. The bone marrow signal is within normal limits. Paranasal sinuses and mastoid air cells: No significant paranasal sinus disease. Visualized orbits: Orbital contents are intact. IMPRESSION: 1. Evolving infarct involving the right occipital lobe, right thalamus and and right inferior tempora l lobe and same distribution as prior 08/18/2024. Acute superimposed infarct along the margins is not excluded given some areas of restricted diffusion. 2. Nonspecific white matter changes, likely secondary to small vessel ischemic disease. [facility], , 10/14/2024 10:23 AM
[2024-10-14 11:49] LABS: Glucose,Whole Blood 191 mg/dL (70-110)
[2024-10-14 16:57] LABS: Glucose,Whole Blood 110 mg/dL (70-110)
[2024-10-14 20:21] LABS: Glucose,Whole Blood 151 mg/dL (70-110)
--- NOTE | 2024-10-14 20:53 | P.PN ---
Subjective Progress Note Date: 10/14/24 This is a 64-year-old female who presents over from [facility] secondary to left- sided numbness and tingling. Patient has a past medical history significant for asthma, diabetes, hypertension, hyperlipidemia, peripheral neuropathy, obesity and a former smoker. Patient was recently admitted to the hospital for acute stroke with left-sided deficits at that time which have been mostly since resolved while she has been at rehab. Her brain MRI back in August revealed an acute/subacute stroke in the right thalamus right occipital lobe and the right medial temporal lobe. Patient was started on Plavix therapy as well as a high- dose statin discharge to subacute rehab. She underwent a full stroke work up her previous admission. Per the patient she went to bed about 11 PM last night when she awoke around 8 to 9:00 in the morning she had symptoms of left arm numbness and weakness which was new as compared to previous. She came into the hospital admitted under general medicine concern for stroke. Chest x-ray reveals patchy and hazy airspace disease bilaterally with mild cardiomegaly. Brain CT reveals evolving late subacute infarct in the right CERTIFIED NURSES AIDE distribution with moderate chronic small vessel ischemic disease. CT angiography of the revealing no acute large vessel occlusion or aneurysm. Chronic occlusion in the distal right PA and P2 segment. No acute findings in the arteries in the neck. Was consulted and discussed with case with neurology recommending to repeat a brain MRI at this time. Additionally neurology has changed patient's plavix over to Brilinta patient is allergic to aspirin and she states that she is unable to take this medication. 10/14/2024 Patient is evaluated today in follow-up of medical floor repeat brain MRI reveals evolving infarct involving the right occipital lobe right thalamus and right inferior temporal lobe and distribution as prior in August 18, 2024. An acute superimposed infarct along the margins is not excluded given some areas of restricted diffusion. Nonspecific white matter changes likely secondary to small vessel ischemic disease. Patient was started on Brilinta in place of Plavix. She is on the allergy to aspirin. She continues on high-dose statin therapy. Patient did not wear an event monitor on her prior discharge back in August. We would recommend a 30-day event monitor on discharge to rule out any underlying cardiac arrhythmias. Patient is agreeable to this plan. Unfortunately the event monitor was unable to be placed today and patient is scheduled to have a placed tomorrow before discharge. Initially the plan was for return to [facility] however patient did work with physical therapy and did extremely well and was actually set to be discharged from [facility] 2 days ago. Patient will discharge home with home care from the hospital. Repeat lipid panel was done revealing a triglyceride level of 229, cholesterol 158, LDL 45.0 HDL 50.0. Hemoglobin A1c is 8.3. REVIEW OF SYSTEMS: CONSTITUTIONAL: No fever, no malaise, no fatigue. HEENT: No recent visual problems or hearing problems. Denied any sore throat. CARDIOVASCULAR: No chest pain, orthopnea, PND, no palpitations, no syncope. PULMONARY: No shortness of breath, no cough, no hemoptysis. GASTROINTESTINAL: No diarrhea, no nausea, no vomiting, no abdominal pain. NEUROLOGICAL: No headaches, Reports left arm tingling and parasthesias PHYSICAL EXAMINATION: GENERAL: The patient is alert and oriented x3, not in any acute distress. Well developed, well nourished. HEENT: Pupils are round and equally reacting to light. EOMI. No scleral icterus. No conjunctival pallor. Normocephalic, atraumatic. No pharyngeal erythema. No thyromegaly. CARDIOVASCULAR: S1 and S2 present. No murmurs, rubs, or gallops. PULMONARY: Chest is clear to auscultation, no wheezing or crackles. ABDOMEN: Soft, nontender, nondistended, normoactive bowel sounds. No palpable organomegaly. MUSCULOSKELETAL: No joint swelling or deformity. EXTREMITIES: No cyanosis, clubbing, or pedal edema. NEUROLOGICAL: Mild left upper extremity weakness SKIN: No rashes. Assessment and Plan Left arm tingling and parasthesias mild weakness with brain CT revealing late evolving stroke in the right CERTIFIED NURSES AIDE distribution. Recent stroke in August of 2024 with brain MRI revealing stroke in the right thalamus, right occipital, and right medial temporal lobe was discharged on plavix and high dose statin therapy Questionable rib fracture on the left per patient she felt some crack in the ER while leaning over a chair. Ischemic cardiomyopathy EF of 30 to 35% Diabetes mellitus type 2 insulin-dependent Hypertension Morbid obesity Hyperlipidemia Peripheral neuropathy GI prophylaxis DVT prophylaxis subcu heparin Plan Neurology consultation Repeat echocardiogram is ordered by neurology and also a repeat limited echocardiogram was ordered by attending. Both test were canceled by the echo department stating that they will not be doing a repeat bubble study as patient just recently had an echocardiogram done back in August. Although a bubble study was not ordered. No repeat echocardiogram was done. Plavix has been discontinued patient has been started on Brilinta with loading dose given. Resume appropriate cardiac home medications Continue Accu-Cheks ACHS setting scale insulin and Lantus 16 units daily. Incentive spirometer 10 times an hour while awake We will order a x-ray of the left-sided ribs for further evaluation. As the chest x-ray patient had did not read as having left-sided rib fractures. Discharge tomorrow after her event monitor has been placed. PT OT consultation The impression and plan of care has been dictated by Patricia Cornejo Nurse Practitioner as directed. Dr. Priya MD I have performed a history and physical examination and medical decision making of this patient, discussed the same with the dictator, and agree with the dictators assessment and plan as written, documented as a scribe. Based on total visit time, I have performed more than 50% of this visit. Objective - Vital Signs Vital signs: Vital Signs Temp 97.9 F 10/14/24 20:00 Pulse 78 10/14/24 20:00 Resp 14 10/14/24 20:00 BP 146/66 10/14/24 20:00 Pulse Ox 98 10/14/24 20:00 FiO2 Intake & Output 10/14/24 10/14/24 10/15/24 06:59 18:59 06:59 Intake Total 118 Balance 118 Weight 113.398 kg Intake: Oral 118 Other: Voiding Method Toilet Toilet # Voids 1 - Labs CBC & Chem 7: 10/12/24 22:07 10/12/24 22:07 Labs: Abnormal Lab Results - Last 24 Hours (Table) 10/13/24 10/14/24 10/14/24 Range/Units 20:56 07:02 07:09 POC Glucose (mg/dL) 129 H 141 H (70-110) mg/dL Hemoglobin A1c 8.3 H (<=6.0) % 10/14/24 10/14/24 Range/Units 11:48 20:19 POC Glucose (mg/dL) 191 H 151 H (70-110) mg/dL Hemoglobin A1c (<=6.0) % Assessment and Plan Time with Patient: Less than 30
--- NOTE | 2024-10-14 22:51 | XR ---
EXAMINATION TYPE: XR ribs LT w pa chest xray DATE OF EXAM: 10/14/2024 9:31 PM COMPARISON: None. CLINICAL INDICATION: Female, 64 years old with history of left sided rib pain and per pt was told she has, TECHNIQUE: 2 view(s) obtained of left ribs. Exam supplemental frontal chest. FINDINGS: Heart size is normal. Pulmonary vasculature is normal. No suspicious focal consolidations. No pneumot horax evident. No displaced left rib fractures are identified. IMPRESSION: 1. No acute osseous abnormality left ribs. Follow-up can be performed as clinically indicated. 2. No acute pulmonary process. [facility], , 10/14/2024 10:48 PM
[2024-10-15 06:18] LABS: Glucose,Whole Blood 137 mg/dL (70-110)
[2024-10-15] MEDS: ONDANSETRON 4 MG/2 ML VIAL IVP PRN (09:55)
[2024-10-15 11:56] LABS: Glucose,Whole Blood 177 mg/dL (70-110)
[2024-10-15] MEDS ORDERED: CALCIUM CARBONATE 500 MG CHEWABLE PO PRN (13:23)
--- NOTE | 2024-10-15 14:45 | P.PN ---
Subjective Progress Note Date: 10/15/24 I am following up with the patient and she feels she is about the same. No new neurological issues. Patient continues to have paresthesia over the left side. On 2 different occasions 2D echo was ordered 1 standard routine echo and a limited 2D echo and both were canceled by the techs without our team or primary team being notified. Objective - Vital Signs Vital signs: Vital Signs Temp 98.5 F 10/15/24 12:00 Pulse 83 10/15/24 12:00 Resp 17 10/15/24 12:00 BP 170/71 10/15/24 12:00 Pulse Ox 99 10/15/24 12:00 FiO2 Intake & Output 10/14/24 10/15/24 10/15/24 18:59 06:59 18:59 Intake Total 118 150 Balance 118 150 Weight 113.398 kg Intake: Oral 118 150 Other: Voiding Method Toilet Toilet Toilet - Exam GENERAL: The patient is sitting up in a chair and is not in acute distress. NEUROLOGICAL: Higher mental function: The patient is awake, alert, oriented to self, place and time. Patient is following commands. No aphasia and no neglect. Cranial nerves: The pupils are round, equal and reactive to light and accommodation. Visual quevedo is left homonymous hemianopsia to confrontation throughout. Extraocular movement is intact no nystagmus is noted. Facial sensation is normal to touch throughout. The facial strength is normal throughout. Hearing is normal bilaterally to hand rub. Tongue is midline and moved [id number] without any difficulty. No dysarthria is noted. Shoulder shrug is normal bilaterally. Motor: The strength is 5 over 5 throughout right. Left upper is 4+ to 5-. left lower is 3. Decrease tone over the left lower. Sensation: Decrease sensation to touch over the left upper extremity. Reflexes (right/left): 2+ throughout. Plantars: Mute bilaterally. Some of the workup during this hospital visit consisted of: Lipid panel is triglycerides 229, cholesterol 158, LDL 62 and HDL is [address] of the head is reported as evolving late subacute infarct in the right PACKAGE LINE RELIEF OPERATOR distribution. I personally reviewed the CT and I feel the right PACKAGE LINE RELIEF OPERATOR stroke seems more subacute to chronic. There is no acute ischemic stroke. CT angiography of the head and neck is reported as chronic occlusion of the distal right P1 and P2 segment. Otherwise no large vessel occlusion or aneurysm. MRI of the brain is reported as evolving infarct involving the right occipital lobe, right thalamus and right inferior temporal lobe and same distribution as prior 08/18/2024. Acute superimposed infarct along the margins not excluded given some area of restricted diffusion. Nonspecific white matter changes likely secondary to small vessel ischemic disease. - Labs CBC & Chem 7: 10/12/24 22:07 10/12/24 22:07 Labs: Abnormal Lab Results - Last 24 Hours (Table) 10/14/24 10/15/24 10/15/24 Range/Units 20:19 06:14 11:54 POC Glucose (mg/dL) 151 H 137 H 177 H (70-110) mg/dL Assessment and Plan Assessment: This is a 64-year-old woman with history of right PACKAGE LINE RELIEF OPERATOR stroke who presents emergency department because of left hand numbness and tingling. She had NIH stroke scale of 4 and code stroke was activated and per the stroke attending medical management. Likely acute ischemic stroke and patient has left paresthesia of the left hand and states has weakness on the left side. On MRI has some superimposed diffusion restriction on margins of previous recent stroke over the right occipital, temporal and thalamus probably evolving stroke. No IV thrombolytic since outside the window and the risk outweigh the benefit History of recent right PACKAGE LINE RELIEF OPERATOR stroke and thalamus in August 2024 and patient has residual left homonymous hemianposia. 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 History of non-STEMI History of essential tremor. History of triple-vessel disease Underlying history of hypertension Diabetes mellitus Hyperlipidemia Obesity Plan: Patient was on Plavix 75 mg daily which failed therefore I started the patient on Brilinta 90 mg daily with a loading dose of 180 mg once. Patient is resumed on her home dose of Lipitor 80 mg nightly. Event monitor was placed during this hospital visit and recoomend for 30 days. Continue neurochecks Cardiac monitoring PT OT and ORTHOPTIST are consulted Defer the rest of the medical management to primary other specialist For DVT prophylaxis On subcu heparin 5000 units every 12 hours Upon discharge, recommend the patient to follow-up with neurologist as outpatient within 2 weeks. The plan is discussed with patient and her nurse. THere is no further neurological work-up. Time with Patient: Less than 30
[2024-10-15 16:54] LABS: Glucose,Whole Blood 154 mg/dL (70-110)
--- NOTE | 2024-10-15 17:27 | P.PN ---
Subjective Progress Note Date: 10/15/24 This is a 64-year-old female who presents over from [facility] secondary to left- sided numbness and tingling. Patient has a past medical history significant for asthma, diabetes, hypertension, hyperlipidemia, peripheral neuropathy, obesity and a former smoker. Patient was recently admitted to the hospital for acute stroke with left-sided deficits at that time which have been mostly since resolved while she has been at rehab. Her brain MRI back in August revealed an acute/subacute stroke in the right thalamus right occipital lobe and the right medial temporal lobe. Patient was started on Plavix therapy as well as a high- dose statin discharge to subacute rehab. She underwent a full stroke work up her previous admission. Per the patient she went to bed about 11 PM last night when she awoke around 8 to 9:00 in the morning she had symptoms of left arm numbness and weakness which was new as compared to previous. She came into the hospital admitted under general medicine concern for stroke. Chest x-ray reveals patchy and hazy airspace disease bilaterally with mild cardiomegaly. Brain CT reveals evolving late subacute infarct in the right DIRECTOR OF CASEWORK SERVICES distribution with moderate chronic small vessel ischemic disease. CT angiography of the revealing no acute large vessel occlusion or aneurysm. Chronic occlusion in the distal right PA and P2 segment. No acute findings in the arteries in the neck. Was consulted and discussed with case with neurology recommending to repeat a brain MRI at this time. Additionally neurology has changed patient's plavix over to Brilinta patient is allergic to aspirin and she states that she is unable to take this medication. 10/14/2024 Patient is evaluated today in follow-up of medical floor repeat brain MRI reveals evolving infarct involving the right occipital lobe right thalamus and right inferior temporal lobe and distribution as prior in August 18, 2024. An acute superimposed infarct along the margins is not excluded given some areas of restricted diffusion. Nonspecific white matter changes likely secondary to small vessel ischemic disease. Patient was started on Brilinta in place of Plavix. She is on the allergy to aspirin. She continues on high-dose statin therapy. Patient did not wear an event monitor on her prior discharge back in August. We would recommend a 30-day event monitor on discharge to rule out any underlying cardiac arrhythmias. Patient is agreeable to this plan. Unfortunately the event monitor was unable to be placed today and patient is scheduled to have a placed tomorrow before discharge. Initially the plan was for return to [facility] however patient did work with physical therapy and did extremely well and was actually set to be discharged from [facility] 2 days ago. Patient will discharge home with home care from the hospital. Repeat lipid panel was done revealing a triglyceride level of 229, cholesterol 158, LDL 45.0 HDL 50.0. Hemoglobin A1c is 8.3. 10/15/2024 Patient is seen in follow-up today with no acute overnight issues noted. Patient has been cleared by consultations and patient having reserve about going home. Patient would like to return to [facility] and case management is following and has submitted for insurance authorization which is currently pending. Patient will need outpatient follow-up with neurology along with cardiology and CT surgery as she reports she was being worked up outpatient for possible cardiac surgery. Patient had a follow-up appointment today although was missed due to being hospitalized. Patient will need to reschedule in the outpatient setting. Continue monitoring blood sugars and will continue current regimen at this time. Patient is afebrile with no reports of chest pain or shortness of breath. Patient reports to feeling slightly anxious as she reports she does not know the overall plan and would like to return to [facility]. Again reiterated that we are awaiting insurance authorization at this time. Possible discharge planning in 24 hours. REVIEW OF SYSTEMS: CONSTITUTIONAL: No fever, no malaise, no fatigue. HEENT: No recent visual problems or hearing problems. Denied any sore throat. CARDIOVASCULAR: No chest pain, orthopnea, PND, no palpitations, no syncope. PULMONARY: No shortness of breath, no cough, no hemoptysis. GASTROINTESTINAL: No diarrhea, no nausea, no vomiting, no abdominal pain. NEUROLOGICAL: No headaches, Reports left arm tingling and parasthesias, generalized weakness PHYSICAL EXAMINATION: GENERAL: The patient is alert and oriented x3, not in any acute distress. Well developed, well nourished. HEENT: Pupils are round and equally reacting to light. EOMI. No scleral icterus. No conjunctival pallor. Normocephalic, atraumatic. No pharyngeal erythema. No thyromegaly. CARDIOVASCULAR: S1 and S2 present. No murmurs, rubs, or gallops. PULMONARY: Chest is clear to auscultation, no wheezing or crackles. ABDOMEN: Soft, nontender, nondistended, normoactive bowel sounds. No palpable organomegaly. MUSCULOSKELETAL: No joint swelling or deformity. EXTREMITIES: No cyanosis, clubbing, or pedal edema. NEUROLOGICAL: Mild left upper extremity weakness SKIN: No rashes. Assessment and Plan Left arm tingling and parasthesias mild weakness with brain CT revealing late evolving stroke in the right [employer]OR OF CASEWORK SERVICES distribution. Recent stroke in August of 2024 with brain MRI revealing stroke in the right thalamus, right occipital, and right medial temporal lobe was discharged on plavix and high dose statin therapy Questionable rib fracture on the left per patient she felt some crack in the ER while leaning over a chair., No fractures noted on imaging Ischemic cardiomyopathy EF of 30 to 35% Diabetes mellitus type 2 insulin-dependent Hypertension Morbid obesity Hyperlipidemia Peripheral neuropathy GI prophylaxis DVT prophylaxis subcu heparin with a BMI of 41.6 Plan: Neurology consultation and has cleared the patient for outpatient follow-up with neurology. Repeat echocardiogram is ordered by neurology and also a repeat limited echocardiogram was ordered by attending. Both test were canceled by the echo department stating that they will not be doing a repeat bubble study as patient just recently had an echocardiogram done back in August. Although a bubble study was not ordered. No repeat echocardiogram was done. Plavix has been discontinued patient has been started on Brilinta with loading dose given. Resume appropriate cardiac home medications Continue Accu-Cheks ACHS setting scale insulin and Lantus 16 units daily. Patient is concerned about self injecting as she has a tremor and feels she may not be able to do this at home. Incentive spirometer 10 times an hour while awake Patient has received her event monitor and will follow-up with cardiology as well as neurology outpatient. Case management consulted again as patient would like to return to [facility]. Patient does require insurance authorization which was submitted and pending at this time. Will discuss further if authorization is denied regarding discharge planning and home with home care. Discharge planning in 24 hours. The impression and plan of care has been dictated by Ann Hensley, Nurse Practitioner as directed. Dr. Priya MD I have performed a history and physical examination and medical decision making of this patient, discussed the same with the dictator, and agree with the dic tators assessment and plan as written, documented as a scribe. Based on total visit time, I have performed more than 50% of this visit. Objective - Vital Signs Vital signs: Vital Signs Temp 97.9 F 12/11/24 20:00 Pulse 64 10/15/24 04:00 Resp 16 10/15/24 04:00 BP 134/77 10/15/24 04:00 Pulse Ox 97 10/15/24 04:00 FiO2 Intake & Output 10/14/24 10/15/24 10/15/24 18:59 06:59 18:59 Intake Total 118 Balance 118 Weight 113.398 kg Intake: Oral 118 Other: Voiding Method Toilet Toilet - Labs CBC & Chem 7: 10/12/24 22:07 10/12/24 22:07 Labs: Abnormal Lab Results - Last 24 Hours (Table) 10/14/24 10/14/24 10/14/24 Range/Units 07:02 11:48 20:19 POC Glucose (mg/dL) 191 H 151 H (70-110) mg/dL Hemoglobin A1c 8.3 H (<=6.0) % 10/15/24 Range/Units 06:14 POC Glucose (mg/dL) 137 H (70-110) mg/dL Hemoglobin A1c (<=6.0) %
[2024-10-15 20:01] LABS: Glucose,Whole Blood 140 mg/dL (70-110)
[2024-10-16 06:11] LABS: Glucose,Whole Blood 137 mg/dL (70-110)
[2024-10-16 11:39] LABS: Glucose,Whole Blood 105 mg/dL (70-110)
--- NOTE | 2024-10-16 14:26 | P.PN ---
Subjective Progress Note Date: 10/16/24 This is a 64-year-old female who presents over from [facility] secondary to left- sided numbness and tingling. Patient has a past medical history significant for asthma, diabetes, hypertension, hyperlipidemia, peripheral neuropathy, obesity and a former smoker. Patient was recently admitted to the hospital for acute stroke with left-sided deficits at that time which have been mostly since resolved while she has been at rehab. Her brain MRI back in August revealed an acute/subacute stroke in the right thalamus right occipital lobe and the right medial temporal lobe. Patient was started on Plavix therapy as well as a high- dose statin discharge to subacute rehab. She underwent a full stroke work up her previous admission. Per the patient she went to bed about 11 PM last night when she awoke around 8 to 9:00 in the morning she had symptoms of left arm numbness and weakness which was new as compared to previous. She came into the hospital admitted under general medicine concern for stroke. Chest x-ray reveals patchy and hazy airspace disease bilaterally with mild cardiomegaly. Brain CT reveals evolving late subacute infarct in the right HOSE TESTER distribution with moderate chronic small vessel ischemic disease. CT angiography of the revealing no acute large vessel occlusion or aneurysm. Chronic occlusion in the distal right PA and P2 segment. No acute findings in the arteries in the neck. Was consulted and discussed with case with neurology recommending to repeat a brain MRI at this time. Additionally neurology has changed patient's plavix over to Brilinta patient is allergic to aspirin and she states that she is unable to take this medication. 10/14/2024 Patient is evaluated today in follow-up of medical floor repeat brain MRI reveals evolving infarct involving the right occipital lobe right thalamus and right inferior temporal lobe and distribution as prior in August 18, 2024. An acute superimposed infarct along the margins is not excluded given some areas of restricted diffusion. Nonspecific white matter changes likely secondary to small vessel ischemic disease. Patient was started on Brilinta in place of Plavix. She is on the allergy to aspirin. She continues on high-dose statin therapy. Patient did not wear an event monitor on her prior discharge back in August. We would recommend a 30-day event monitor on discharge to rule out any underlying cardiac arrhythmias. Patient is agreeable to this plan. Unfortunately the event monitor was unable to be placed today and patient is scheduled to have a placed tomorrow before discharge. Initially the plan was for return to [facility] however patient did work with physical therapy and did extremely well and was actually set to be discharged from [facility] 2 days ago. Patient will discharge home with home care from the hospital. Repeat lipid panel was done revealing a triglyceride level of 229, cholesterol 158, LDL 45.0 HDL 50.0. Hemoglobin A1c is 8.3. 10/15/2024 Patient is seen in follow-up today with no acute overnight issues noted. Patient has been cleared by consultations and patient having reserve about going home. Patient would like to return to [facility] and case management is following and has submitted for insurance authorization which is currently pending. Patient will need outpatient follow-up with neurology along with cardiology and CT surgery as she reports she was being worked up outpatient for possible cardiac surgery. Patient had a follow-up appointment today although was missed due to being hospitalized. Patient will need to reschedule in the outpatient setting. Continue monitoring blood sugars and will continue current regimen at this time. Patient is afebrile with no reports of chest pain or shortness of breath. Patient reports to feeling slightly anxious as she reports she does not know the overall plan and would like to return to [facility]. Again reiterated that we are awaiting insurance authorization at this time. Possible discharge planning in 24 hours. 10/16/2024 Patient is evaluated today in follow-up she is sitting in the chair with no acute issues noted overnight. Patient is currently pending insurance authorization for return to [facility]. Although was discussed with the patient that she did well with physical therapy and may not be approved. Patient states that she does not feel comfortable returning home at this time as she feels that she would be unable to prepare meals and care for herself secondary to the continued numbness and tingling in her left upper extremity. Patient does state that she was told she has rib fractures on the left side x-ray was completed which reveals no acute osseous abnormalities in the left ribs. REVIEW OF SYSTEMS: CONSTITUTIONAL: No fever, no malaise, no fatigue. HEENT: No recent visual problems or hearing problems. Denied any sore throat. CARDIOVASCULAR: No chest pain, orthopnea, PND, no palpitations, no syncope. PULMONARY: No shortness of breath, no cough, no hemoptysis. GASTROINTESTINAL: No diarrhea, no nausea, no vomiting, no abdominal pain. NEUROLOGICAL: No headaches, Reports left arm tingling and parasthesias, generalized weakness PHYSICAL EXAMINATION: GENERAL: The patient is alert and oriented x3, not in any acute distress. Well developed, well nourished. HEENT: Pupils are round and equally reacting to light. EOMI. No scleral icterus. No conjunctival pallor. Normocephalic, atraumatic. No pharyngeal erythema. No thyromegaly. CARDIOVASCULAR: S1 and S2 present. No murmurs, rubs, or gallops. PULMONARY: Chest is clear to auscultation, no wheezing or crackles. ABDOMEN: Soft, nontender, nondistended, normoactive bowel sounds. No palpable organomegaly. MUSCULOSKELETAL: No joint swelling or deformity. EXTREMITIES: No cyanosis, clubbing, or pedal edema. NEUROLOGICAL: Mild left upper extremity weakness SKIN: No rashes. Assessment and Plan Left arm tingling and parasthesias mild weakness with brain CT revealing late evolving stroke in the right HOSE TESTER distribution. Recent stroke in August of 2024 with brain MRI revealing stroke in the right thalamus, right occipital, and right medial temporal lobe was discharged on plavix and high dose statin therapy Questionable rib fracture on the left per patient she felt some crack in the ER while leaning over a chair., No fractures noted on imaging Ischemic cardiomyopathy EF of 30 to 35% Diabetes mellitus type 2 insulin-dependent Hypertension Morbid obesity Hyperlipidemia Peripheral neuropathy GI prophylaxis DVT prophylaxis subcu heparin with a BMI of 41.6 Plan: Neurology consultation and has cleared the patient for outpatient follow-up with neurology. Repeat echocardiogram is ordered by neurology and also a repeat limited echocardiogram was ordered by attending. Both test were canceled by the echo department stating that they will not be doing a repeat bubble study as patient just recently had an echocardiogram done back in August. Although a bubble study was not ordered. No repeat echocardiogram was done. Plavix has been discontinued patient has been started on Brilinta with loading dose given. Resume appropriate cardiac home medications Continue Accu-Cheks ACHS setting scale insulin and Lantus 16 units daily. Patient is concerned about self injecting as she has a tremor and feels she may not be able to do this at home. Incentive spirometer 10 times an hour while awake Patient has received her event monitor and will follow-up with cardiology as well as neurology outpatient. Case management consulted again as patient would like to return to [facility]. Patient does require insurance authorization which was submitted and pending at this time. Will discuss further if authorization is denied regarding discharge planning and home with home care. At this time insurance authorization is still pending and will reevaluate for discharge planning tomorrow. Discharge planning in 24 hours. The impression and plan of care has been dictated by Patricia Cornejo Nurse Practitioner as directed. Dr. Priya MD I have performed a history and physical examination and medical decision making of this patient, discussed the same with the dictator, and agree with the dic tators assessment and plan as written, documented as a scribe. Based on total visit time, I have performed more than 50% of this visit. Objective - Vital Signs Vital signs: Vital Signs Temp 98.5 F 10/16/24 09:10 Pulse 78 10/16/24 12:00 Resp 18 10/16/24 12:00 BP 150/83 10/16/24 12:00 Pulse Ox 98 10/16/24 12:00 FiO2 Intake & Output 10/15/24 10/16/24 10/16/24 18:59 06:59 18:59 Intake Total 300 480 Balance 300 480 Weight 101.9 kg Intake: Oral 300 480 Other: Voiding Method Toilet Toilet Toilet # Voids 2 2 1 - Labs CBC & Chem 7: 10/12/24 22:07 10/12/24 22:07 Labs: Abnormal Lab Results - Last 24 Hours (Table) 10/15/24 10/15/24 10/16/24 Range/Units 16:53 19:59 06:09 POC Glucose (mg/dL) 154 H 140 H 137 H (70-110) mg/dL Assessment and Plan Time with Patient: Less than 30
[2024-10-16 16:12] LABS: Glucose,Whole Blood 192 mg/dL (70-110)
[2024-10-16 21:13] LABS: Glucose,Whole Blood 159 mg/dL (70-110)
[2024-10-17 06:19] LABS: Glucose,Whole Blood 123 mg/dL (70-110)
[2024-10-17 11:33] LABS: Glucose,Whole Blood 186 mg/dL (70-110)
[2024-10-17 16:32] LABS: Glucose,Whole Blood 195 mg/dL (70-110)
[2024-10-17 20:48] LABS: Glucose,Whole Blood 132 mg/dL (70-110)
[2024-10-18 05:43] LABS: Glucose,Whole Blood 110 mg/dL (70-110)
--- NOTE | 2024-10-18 07:57 | P.PN ---
Subjective Progress Note Date: 10/18/24 This is a 64-year-old female who presents over from [facility] secondary to left- sided numbness and tingling. Patient has a past medical history significant for asthma, diabetes, hypertension, hyperlipidemia, peripheral neuropathy, obesity and a former smoker. Patient was recently admitted to the hospital for acute stroke with left-sided deficits at that time which have been mostly since resolved while she has been at rehab. Her brain MRI back in August revealed an acute/subacute stroke in the right thalamus right occipital lobe and the right medial temporal lobe. Patient was started on Plavix therapy as well as a high- dose statin discharge to subacute rehab. She underwent a full stroke work up her previous admission. Per the patient she went to bed about 11 PM last night when she awoke around 8 to 9:00 in the morning she had symptoms of left arm numbness and weakness which was new as compared to previous. She came into the hospital admitted under general medicine concern for stroke. Chest x-ray reveals patchy and hazy airspace disease bilaterally with mild cardiomegaly. Brain CT reveals evolving late subacute infarct in the right [employer] distribution with moderate chronic small vessel ischemic disease. CT angiography of the revealing no acute large vessel occlusion or aneurysm. Chronic occlusion in the distal right PA and P2 segment. No acute findings in the arteries in the neck. Was consulted and discussed with case with neurology recommending to repeat a brain MRI at this time. Additionally neurology has changed patient's plavix over to Brilinta patient is allergic to aspirin and she states that she is unable to take this medication. 10/14/2024 Patient is evaluated today in follow-up of medical floor repeat brain MRI reveals evolving infarct involving the right occipital lobe right thalamus and right inferior temporal lobe and distribution as prior in August 18, 2024. An acute superimposed infarct along the margins is not excluded given some areas of restricted diffusion. Nonspecific white matter changes likely secondary to small vessel ischemic disease. Patient was started on Brilinta in place of Plavix. She is on the allergy to aspirin. She continues on high-dose statin therapy. Patient did not wear an event monitor on her prior discharge back in August. We would recommend a 30-day event monitor on discharge to rule out any underlying cardiac arrhythmias. Patient is agreeable to this plan. Unfortunately the event monitor was unable to be placed today and patient is scheduled to have a placed tomorrow before discharge. Initially the plan was for return to [facility] however patient did work with physical therapy and did extremely well and was actually set to be discharged from [facility] 2 days ago. Patient will discharge home with home care from the hospital. Repeat lipid panel was done revealing a triglyceride level of 229, cholesterol 158, LDL 45.0 HDL 50.0. Hemoglobin A1c is 8.3. 10/15/2024 Patient is seen in follow-up today with no acute overnight issues noted. Patient has been cleared by consultations and patient having reserve about going home. Patient would like to return to [facility] and case management is following and has submitted for insurance authorization which is currently pending. Patient will need outpatient follow-up with neurology along with cardiology and CT surgery as she reports she was being worked up outpatient for possible cardiac surgery. Patient had a follow-up appointment today although was missed due to being hospitalized. Patient will need to reschedule in the outpatient setting. Continue monitoring blood sugars and will continue current regimen at this time. Patient is afebrile with no reports of chest pain or shortness of breath. Patient reports to feeling slightly anxious as she reports she does not know the overall plan and would like to return to [facility]. Again reiterated that we are awaiting insurance authorization at this time. Possible discharge planning in 24 hours. 10/16/2024 Patient is evaluated today in follow-up she is sitting in the chair with no acute issues noted overnight. Patient is currently pending insurance authorization for return to [facility]. Although was discussed with the patient that she did well with physical therapy and may not be approved. Patient states that she does not feel comfortable returning home at this time as she feels that she would be unable to prepare meals and care for herself secondary to the continued numbness and tingling in her left upper extremity. Patient does state that she was told she has rib fractures on the left side x-ray was completed which reveals no acute osseous abnormalities in the left ribs. 10/17/2024 Patient needs peer to peer to discharge to rehab. This will have to be done on Saturday they are not open on the weekends. She feels like she cannot handle going home due to having memory issues since the stroke. She is having a hard time with the event monitor including charging it and wearing it. She is nervous to manage it at home. She wants to return it. REVIEW OF SYSTEMS: CONSTITUTIONAL: No fever, no malaise, no fatigue. HEENT: No recent visual problems or hearing problems. Denied any sore throat. CARDIOVASCULAR: No chest pain, orthopnea, PND, no palpitations, no syncope. PULMONARY: No shortness of breath, no cough, no hemoptysis. GASTROINTESTINAL: No diarrhea, no nausea, no vomiting, no abdominal pain. NEUROLOGICAL: No headaches, Reports left arm tingling and parasthesias, generalized weakness PHYSICAL EXAMINATION: GENERAL: The patient is alert and oriented x3, not in any acute distress. Well developed, well nourished. HEENT: Pupils are round and equally reacting to light. EOMI. No scleral icterus. No conjunctival pallor. Normocephalic, atraumatic. No pharyngeal erythema. No thyromegaly. CARDIOVASCULAR: S1 and S2 present. No murmurs, rubs, or gallops. PULMONARY: Chest is clear to auscultation, no wheezing or crackles. ABDOMEN: Soft, nontender, nondistended, normoactive bowel sounds. No palpable organomegaly. MUSCULOSKELETAL: No joint swelling or deformity. EXTREMITIES: No cyanosis, clubbing, or pedal edema. NEUROLOGICAL: Mild left upper extremity weakness SKIN: No rashes. Assessment and Plan Left arm tingling and parasthesias mild weakness with brain CT revealing late evolving stroke in the right [employer] distribution. Recent stroke in August of 2024 with brain MRI revealing stroke in the right thalamus, right occipital, and right medial temporal lobe was discharged on plavix and high dose statin therapy Questionable rib fracture on the left per patient she felt some crack in the ER while leaning over a chair., No fractures noted on imaging Ischemic cardiomyopathy EF of 30 to 35% Diabetes mellitus type 2 insulin-dependent Hypertension Morbid obesity Hyperlipidemia Peripheral neuropathy GI prophylaxis DVT prophylaxis subcu heparin with a BMI of 41.6 Plan: Neurology consultation and has cleared the patient for outpatient follow-up with neurology. Repeat echocardiogram is ordered by neurology and also a repeat limited echo cardiogram was ordered by attending. Both test were canceled by the echo department stating that they will not be doing a repeat bubble study as patient just recently had an echocardiogram done back in August. Although a bubble study was not ordered. No repeat echocardiogram was done. Plavix has been discontinued patient has been started on Brilinta with loading dose given. Resume appropriate cardiac home medications Continue Accu-Cheks ACHS setting scale insulin and Lantus 16 units daily. Patient is concerned about self injecting as she has a tremor and feels she may not be able to do this at home. Incentive spirometer 10 times an hour while awake Patient has received her event monitor and will follow-up with cardiology as well as neurology outpatient. Case management consulted again as patient would like to return to [facility]. Patient does require insurance authorization which was submitted and pending at this time. Will discuss further if authorization is denied regarding discharge planning and home with home care. At this time insurance authorization is still pending and will reevaluate for discharge planning tomorrow. Peer to Peer will be completed on saturday. Discharge planning in 24 hours. The impression and plan of care has been dictated by Patricia Cornejo, Nurse Practitioner as directed. Dr. Priya MD I have performed a history and physical examination and medical decision making of this patient, discussed the same with the dictator, and agree with the dictators assessment and plan as written, documented as a scribe. Based on total visit time, I have performed more than 50% of this visit. Objective - Vital Signs Vital signs: Vital Signs Temp 97.6 F 10/18/24 03:15 Pulse 79 10/18/24 03:15 Resp 18 10/18/24 03:15 BP 148/72 10/18/24 03:15 Pulse Ox 97 10/18/24 03:15 FiO2 Intake & Output 10/17/24 10/18/24 10/18/24 18:59 06:59 18:59 Intake Total 340 10 Balance 340 10 Weight 101.6 kg Intake: IV 10 10 Invasive Line 3 10 10 Oral 330 Other: Voiding Method Toilet Toilet # Voids 1 2 # Bowel Movements 1 - Labs CBC & Chem 7: 10/12/24 22:07 10/12/24 22:07 Labs: Abnormal Lab Results - Last 24 Hours (Table) 10/17/24 10/17/24 10/17/24 Range/Units 11:32 16:25 20:46 POC Glucose (mg/dL) 186 H 195 H 132 H (70-110) mg/dL Assessment and Plan Time with Patient: Less than 30
[2024-10-18 11:38] LABS: Glucose,Whole Blood 123 mg/dL (70-110)
[2024-10-18] MEDS: ACETAMINOPHEN TAB 325 MG TAB PO PRN (15:15)
[2024-10-18 16:50] LABS: Glucose,Whole Blood 139 mg/dL (70-110)
--- NOTE | 2024-10-18 19:10 | P.PN ---
Subjective Progress Note Date: 10/18/24 This is a 64-year-old female who presents over from [facility] secondary to left- sided numbness and tingling. Patient has a past medical history significant for asthma, diabetes, hypertension, hyperlipidemia, peripheral neuropathy, obesity and a former smoker. Patient was recently admitted to the hospital for acute stroke with left-sided deficits at that time which have been mostly since resolved while she has been at rehab. Her brain MRI back in August revealed an acute/subacute stroke in the right thalamus right occipital lobe and the right medial temporal lobe. Patient was started on Plavix therapy as well as a high- dose statin discharge to subacute rehab. She underwent a full stroke work up her previous admission. Per the patient she went to bed about 11 PM last night when she awoke around 8 to 9:00 in the morning she had symptoms of left arm numbness and weakness which was new as compared to previous. She came into the hospital admitted under general medicine concern for stroke. Chest x-ray reveals patchy and hazy airspace disease bilaterally with mild cardiomegaly. Brain CT reveals evolving late subacute infarct in the right [employer] distribution with moderate chronic small vessel ischemic disease. CT angiography of the revealing no acute large vessel occlusion or aneurysm. Chronic occlusion in the distal right PA and P2 segment. No acute findings in the arteries in the neck. Was consulted and discussed with case with neurology recommending to repeat a brain MRI at this time. Additionally neurology has changed patient's plavix over to Brilinta patient is allergic to aspirin and she states that she is unable to take this medication. 10/14/2024 Patient is evaluated today in follow-up of medical floor repeat brain MRI reveals evolving infarct involving the right occipital lobe right thalamus and right inferior temporal lobe and distribution as prior in August 18, 2024. An acute superimposed infarct along the margins is not excluded given some areas of restricted diffusion. Nonspecific white matter changes likely secondary to small vessel ischemic disease. Patient was started on Brilinta in place of Plavix. She is on the allergy to aspirin. She continues on high-dose statin therapy. Patient did not wear an event monitor on her prior discharge back in August. We would recommend a 30-day event monitor on discharge to rule out any underlying cardiac arrhythmias. Patient is agreeable to this plan. Unfortunately the event monitor was unable to be placed today and patient is scheduled to have a placed tomorrow before discharge. Initially the plan was for return to [facility] however patient did work with physical therapy and did extremely well and was actually set to be discharged from [facility] 2 days ago. Patient will discharge home with home care from the hospital. Repeat lipid panel was done revealing a triglyceride level of 229, cholesterol 158, LDL 45.0 HDL 50.0. Hemoglobin A1c is 8.3. 10/15/2024 Patient is seen in follow-up today with no acute overnight issues noted. Patient has been cleared by consultations and patient having reserve about going home. Patient would like to return to [facility] and case management is following and has submitted for insurance authorization which is currently pending. Patient will need outpatient follow-up with neurology along with cardiology and CT surgery as she reports she was being worked up outpatient for possible cardiac surgery. Patient had a follow-up appointment today although was missed due to being hospitalized. Patient will need to reschedule in the outpatient setting. Continue monitoring blood sugars and will continue current regimen at this time. Patient is afebrile with no reports of chest pain or shortness of breath. Patient reports to feeling slightly anxious as she reports she does not know the overall plan and would like to return to [facility]. Again reiterated that we are awaiting insurance authorization at this time. Possible discharge planning in 24 hours. 10/16/2024 Patient is evaluated today in follow-up she is sitting in the chair with no acute issues noted overnight. Patient is currently pending insurance authorization for return to [facility]. Although was discussed with the patient that she did well with physical therapy and may not be approved. Patient states that she does not feel comfortable returning home at this time as she feels that she would be unable to prepare meals and care for herself secondary to the continued numbness and tingling in her left upper extremity. Patient does state that she was told she has rib fractures on the left side x-ray was completed which reveals no acute osseous abnormalities in the left ribs. 10/17/2024 Patient needs peer to peer to discharge to rehab. This will have to be done on Saturday they are not open on the weekends. She feels like she cannot handle going home due to having memory issues since the stroke. She is having a hard time with the event monitor including charging it and wearing it. She is nervous to manage it at home. She wants to return it. 10/18/2024 Patient is evaluated today in follow-up on the medical floor no acute complaints overnight. Will follow-up with the can technician tomorrow patient is able to return his event monitor. Otherwise a peer to peer will be completed tomorrow morning for decision patient can return to rehab where she will need to discharge home. She continues on Brilinta at this time. As well as high-dose statin therapy. REVIEW OF SYSTEMS: CONSTITUTIONAL: No fever, no malaise, no fatigue. HEENT: No recent visual problems or hearing problems. Denied any sore throat. CARDIOVASCULAR: No chest pain, orthopnea, PND, no palpitations, no syncope. PULMONARY: No shortness of breath, no cough, no hemoptysis. GASTROINTESTINAL: No diarrhea, no nausea, no vomiting, no abdominal pain. NEUROLOGICAL: No headaches, Reports left arm tingling and parasthesias, generalized weakness PHYSICAL EXAMINATION: GENERAL: The patient is alert and oriented x3, not in any acute distress. Well developed, well nourished. HEENT: Pupils are round and equally reacting to light. EOMI. No scleral icterus. No conjunctival pallor. Normocephalic, atraumatic. No pharyngeal erythema. No thyromegaly. CARDIOVASCULAR: S1 and S2 present. No murmurs, rubs, or gallops. PULMONARY: Chest is clear to auscultation, no wheezing or crackles. ABDOMEN: Soft, nontender, nondistended, normoactive bowel sounds. No palpable organomegaly. MUSCULOSKELETAL: No joint swelling or deformity. EXTREMITIES: No cyanosis, clubbing, or pedal edema. NEUROLOGICAL: Mild left upper extremity weakness SKIN: No rashes. Assessment and Plan Left arm tingling and parasthesias mild weakness with brain CT revealing late evolving stroke in the right [employer] distribution. Recent stroke in August of 2024 with brain MRI revealing stroke in the right thalamus, right occipital, and right medial temporal lobe was discharged on plavix and high dose statin therapy Questionable rib fracture on the left per patient she felt some crack in the ER while leaning over a chair., No fractures noted on imaging Ischemic cardiomyopathy EF of 30 to 35% Diabetes mellitus type 2 insulin-dependent Hypertension Morbid obesity Hyperlipidemia Peripheral neuropathy GI prophylaxis DVT prophylaxis subcu heparin with a BMI of 41.6 Plan: Neurology consultation and has cleared the patient for outpatient follow-up with neurology. Repeat echocardiogram is ordered by neurology and also a repeat limited echocardiogram was ordered by attending. Both test were canceled by the echo department stating that they will not be doing a repeat bubble study as patient just recently had an echocardiogram done back in August. Although a bubble study was not ordered. No repeat echocardiogram was done. Plavix has been discontinued patient has been started on Brilinta with loading dose given. Resume appropriate cardiac home medications Continue Accu-Cheks ACHS setting scale insulin and Lantus 16 units daily. Patient is concerned about self injecting as she has a tremor and feels she may not be able to do this at home. Incentive spirometer 10 times an hour while awake Patient has received her event monitor and will follow-up with cardiology as well as neurology outpatient. Case management consulted again as patient would like to return to [facility]. Patient does require insurance authorization which was submitted and pending at this time. Will discuss further if authorization is denied regarding discharge planning and home with home care. At this time insurance authorization is still pending and will reevaluate for discharge planning tomorrow. Peer to Peer will be completed on saturday. Discharge planning in 24 hours. The impression and plan of care has been dictated by Patricia Cornejo Nurse Practitioner as directed. Dr. Priya MD I have performed a history and physical examination and medical decision making of this patient, discussed the same with the dictator, and agree with the dictators assessment and plan as written, documented as a scribe. Based on total visit time, I have performed more than 50% of this visit. Objective - Vital Signs Vital signs: Vital Signs Temp 97.8 F 10/18/24 15:13 Pulse 67 10/18/24 15:13 Resp 18 10/18/24 15:13 BP 167/88 10/18/24 15:13 Pulse Ox 96 10/18/24 15:13 FiO2 Intake & Output 10/18/24 10/18/24 10/19/24 06:59 18:59 06:59 Intake Total 10 1030 Balance 10 1030 Weight 101.6 kg Intake: IV 10 10 Invasive Line 3 10 10 Oral 1020 Other: Voiding Method Toilet Toilet # Voids 2 2 # Bowel Movements 2 - Labs CBC & Chem 7: 10/12/24 22:07 10/12/24 22:07 Labs: Abnormal Lab Results - Last 24 Hours (Table) 10/17/24 10/18/24 10/18/24 Range/Units 20:46 11:37 16:48 POC Glucose (mg/dL) 132 H 123 H 139 H (70-110) mg/dL Assessment and Plan Time with Patient: Less than 30
[2024-10-18 21:00] LABS: Glucose,Whole Blood 201 mg/dL (70-110)
[2024-10-19 06:04] LABS: Glucose,Whole Blood 135 mg/dL (70-110)
[2024-10-19 09:42] VITALS: TEMP 98.1
[2024-10-19 11:49] LABS: Glucose,Whole Blood 152 mg/dL (70-110)
[2024-10-19 14:33] VITALS: BMI 36.9
[2024-10-19 16:01] LABS: Glucose,Whole Blood 152 mg/dL (70-110)
[2024-10-19 16:11] VITALS: BP 138/79; PULSE 75; RESP 17
== END 2024-10-19 18:04 | disposition home health service (06) | DRG 45 ==
LOC: EC 21:26 → 3SCARD 23:36 → 3NCARDOBS 10-14 16:10
PROVIDERS: ADMIT Hospitalist; ATTEND Hospitalist
DX: I63.531 Cerebral infarction due to unspecified occlusion or stenosis of right posterior cerebral artery (principal); E11.42 Type 2 diabetes mellitus with diabetic polyneuropathy; I11.9 Hypertensive heart disease without heart failure; E66.01 Morbid (severe) obesity due to excess calories; Z68.41 Body mass index [BMI] 40.0-44.9, adult; G83.24 Monoplegia of upper limb affecting left nondominant side; Z79.4 Long term (current) use of insulin; I69.398 Other sequelae of cerebral infarction; J45.909 Unspecified asthma, uncomplicated; E78.5 Hyperlipidemia, unspecified; R29.704 NIHSS score 4; G25.0 Essential tremor; I25.5 Ischemic cardiomyopathy; Z79.84 Long term (current) use of oral hypoglycemic drugs; Z79.02 Long term (current) use of antithrombotics/antiplatelets; Z87.891 Personal history of nicotine dependence; Z82.49 Family history of ischemic heart disease and other diseases of the circulatory system; Z88.6 Allergy status to analgesic agent; I25.2 Old myocardial infarction; Z79.899 Other long term (current) drug therapy
CPT/HCPCS: 36415; 70450; 70496; 70498; 70551; 71046; 80053; 80061; 82550; 83036; 84484; 85025; 85610; 85730; 93005; 93270; 94760; 96372; 96374; 99291

== ENCOUNTER 2024-11-24 11:26 | Observation (INO) | payer OTHER ==
[2024-11-24 11:39] VITALS: TEMP 98.5
--- NOTE | 2024-11-24 11:58 | ED ---
General Adult HPI - General Chief complaint: Neuro Symptoms/Deficit Stated complaint: L sided numbness Time Seen by Provider: 11/24/24 11:40 Source: patient, family Mode of arrival: wheelchair - History of Present Illness Initial comments: Dictation was produced using [employer] dictation software. please excuse any grammatical, word or spelling errors. Chief Complaint: 64-year-old female presents to the emergency department for strokelike symptoms History of Present Illness: Patient 64-year-old female last known well was 11 PM last night. She woke up out of bed went to see her primary care doctor for some left lower facial numbness and left arm numbness. Patient has no other complaints. She has a history of stroke that affected her left side however she recovered fully. Denies any headache. No other complaints at this time. The ROS documented in this emergency department record has been reviewed and confirmed by me. Those systems with pertinent positive or negative responses have been documented in the HPI. All other systems are other negative and/or noncontributory. - Related Data Home Medications Medication Instructions Recorded Confirmed Cholecalciferol [Vitamin D3 (25 50 mcg PO DAILY 10/13/24 10/13/24 Mcg = 1000 Iu)] Loratadine [Claritin] 10 mg PO DAILY 10/13/24 10/13/24 Previous Rx's Medication Instructions Recorded Acetaminophen Tab [Tylenol] 650 mg PO Q6HR PRN tab 08/21/24 Atorvastatin [Lipitor] 80 mg PO HS #30 tab 10/14/24 Gabapentin 600 mg PO QID #120 tab 10/14/24 Isosorbide Mononitrate ER [Imdur] 30 mg PO DAILY #30 tab 10/14/24 Metoprolol Succinate (ER) [Toprol 100 mg PO DAILY #30 tab 10/14/24 XL] Sacubitril/Valsartan [Entresto 24 1 tab PO BID #60 tab 10/14/24 mg-26 mg Tablet] Ticagrelor [Brilinta] 90 mg PO BID #60 tab 10/14/24 glipiZIDE [Glucotrol] 2.5 mg PO AC-BID #60 tab 10/14/24 metFORMIN HCL ER [Glucophage XR] 500 mg PO DAILY #30 tab 10/14/24 traMADol HCl [Ultram] 50 mg PO Q6H PRN #12 tab 10/14/24 Insulin Glargine,Hum.rec.anlog 16 units SQ DAILY #1 each 10/19/24 [Lantus Solostar Pen] Pen Needle, Diabetic [Pentips] 1 each MC DAILY #30 each 10/19/24 Allergies Allergy/AdvReac Type Severity Reaction Status Date / Time aspirin Allergy Itching Verified 11/24/24 11:39 Penicillins Allergy Swelling/Ra Verified 11/24/24 11:39 sh/Hives/It pan Review of Systems ROS Statement: Those systems with pertinent positive or pertinent negative responses have been documented in the HPI. ROS Other: All systems not noted in ROS Statement are negative. Past Medical History Past Medical History: Asthma, Coronary Artery Disease (CAD), Chest Pain / A ngina, Heart Failure, CVA/TIA, Diabetes Mellitus, Hyperlipidemia, Hypertension Additional Past Medical History / Comment(s): Peripheral neuropathy. Morbid obesity with a BMI of 41.6 kg/m\, pt has known triple vessel heart disease History of Any Multi-Drug Resistant Organisms: None Reported Past Surgical History: Cholecystectomy, Heart Catheterization, Hysterectomy Past Anesthesia/Blood Transfusion Reactions: No Reported Reaction Past Psychological History: Depression Smoking Status: Former smoker Past Alcohol Use History: None Reported Past Drug Use History: Marijuana - Past Family History Mother Family Medical History: Hypertension Additional Family Medical History / Comment(s): Pulmonary hypertension, scle roderma, chronic kidney disease Father Family Medical History: Myocardial Infarction ([place]) Additional Family Medical History / Comment(s): CABG surgery in his mid 60s General Exam - General Exam Comments Initial Comments: PHYSICAL EXAM: General Impression: Alert and oriented x3, not in acute distress HEENT: Normocephalic atraumatic, extra-ocular movements intact, pupils equal and reactive to light bilaterally, mucous membranes moist. Cardiovascular: Heart regular rate and rhythm Chest: Able to complete full sentences, no retractions, no tachypnea Abdomen: abdomen soft, non-tender, non-distended, no organomegaly Musculoskeletal: Pulses present and equal in all extremities, no peripheral edema Motor: no focal deficits noted Neurological: CN II-XII grossly intact, no focal motor deficits noted. Reported sensory deficit to light touch of the left arm and left lower face Skin: Intact with no visualized rashes Psych: Normal affect and mood Course Vital Signs 11/24/24 11:35 Temperature 98.5 F Pulse Rate 87 Respiratory 20 Rate Blood Pressure 153/89 O2 Sat by Pulse 97 Oximetry - Reevaluation(s) Reevaluation #1: 11/24/24 11:56 Code stroke not activated this time due to risk outweigh the benefits she has low NIH score limited to only reported sensory deficit to light touch of the left lower face and left arm. EKG Findings - EKG Comments: EKG Findings:: My EKG interpretation: Ventricular rate 79, sinus rhythm,. 162, cures 89, QTc 384. No MN prolongation, no QTC prolongation, no ST or T-wave changes noted. Overall, this EKG is unremarkable Medical Decision Making - Medical Decision Making Was pt. sent in by a medical professional or institution (, PA, SENIOR UI DESIGNER, urgent care, hospital, or senior care...) When possible be specific @ -No Did you speak to anyone other than the patient for history (EMS, parent, family, police, friend...)? What history was obtained from this source @ -No Did you review nursing and triage notes (agree or disagree)? Why? @ -I reviewed and agree with nursing and triage notes Were old charts reviewed (outside hosp., previous admission, EMS record, old EKG, old radiological studies, urgent care reports/EKG's, senior care records)? Report findings @ -No old charts were reviewed Differential Diagnosis (chest pain, altered mental status, abdominal pain women, abdominal pain men, vaginal bleeding, musculoskeletal, weakness, fever, dyspnea, syncope, headache, dizziness, GI bleed, back pain, seizure, CVA, palpatations, mental health)? @ - Differential CVA: Ischemic stroke, hemorrhagic stroke, brain tumor, atypical migraine, Wernicke's encephalopathy, seizure, multiple sclerosis, meningitis, encephalitis, hypoglycemia, Guillain-Mao, electrolytes disturbance, myasthenia gravis.... This is not meant to be an all-inclusive list EKG interpreted by me (3pts min.). @ -See above X-rays interpreted by me (1pt min.). @ -None done CT interpreted by me (1pt min.). @ -CT brain shows no acute processes U/S interpreted by me (1pt. min.). @ -None done What testing was considered but not performed or refused? (CT, X-rays, U/S, labs)? Why? @ -None What meds were considered but not given or refused? Why? @ -None Was smoking cessation discussed for >3mins.? @ -No Were there social determinants of health that impacted care today? How? (Homelessness, low income, unemployed, alcoholism, drug addiction, transportation, low edu. Level, literacy, decrease access to med. care, mcc, re hab)? @ -No Was there de-escalation of care discussed even if they declined (Discuss DNR or withdrawal of care, Hospice)? DNR status @ -No What co-morbidities impacted this encounter? (DM, HTN, Smoking, COPD, CAD, Cancer, CVA, ARF, Chemo, Hep., AIDS, mental health diagnosis, sleep apnea, morbid obesity)? @ -History of CVA Was patient admitted / discharged? Hospital course, mention meds given and route, prescriptions, significant lab abnormalities, going to OR and other pertinent info. @ -64-year-old female presents to the emergency department for acute CVA symptoms she is outside the window for thrombolytics. CT brain is unremarkable. Her deficits are mild with paresthesias to the left arm and left lower face. Code stroke paged due to risk outweigh the benefits. Laboratory evaluation is unremarkable. CT brain shows no bleed. CT angiography pending. Patient be admitted with consultation to neurology. Patient given aspirin Did you discuss the management of the patient with other professionals (professionals i.e. , PA, SENIOR UI DESIGNER, lab, RT, psych nurse, medical social worker, waxed bag machine operator, teacher, customer service security officer, supportive employment case manager)? Give summary @ -Case discussed with hospitalist for admission Was critical care preformed (if so, how long)? @ -No Undiagnosed new problem with uncertain prognosis? @ -No Drug Therapy requiring intensive monitoring for toxicity (Heparin, Nitro, Insulin, Cardizem)? @ -No Were any procedures done? @ -No Diagnosis/symptom? Acute, or Chronic, or Acute on Chronic? Uncomplicated (without systemic symptoms) or Complicated (systemic symptoms)? @ -CVA Side effects of treatment? @ -No Exacerbation, Progression, or Severe Exacerbation? @ -No Poses a threat to life or bodily function? How? (Chest pain, [place], [place], pneumonia, PE, COPD, DKA, ARF, appy, cholecystitis, CVA, Diverticulitis, Homicidal, Suicidal, threat to staff... and all critical care pts) @ -yes - Lab Data Result diagrams: 11/24/24 12:10 11/24/24 12:10 Lab Results 11/24/24 11/24/24 11/24/24 Range/Units 12:10 12:10 12:10 WBC 11.3 H (3.8-10.6) k/uL RBC 4.39 (3.80-5.40) m/uL Hgb 13.6 (11.4-16.0) gm/dL Hct 41.2 (34.0-46.0) % MCV 93.8 (80.0-100.0) fL MCH 31.1 (25.0-35.0) pg MCHC 33.1 (31.0-37.0) g/dL RDW 13.2 (11.5-15.5) % Plt Count 258 (150-450) k/uL MPV 8.6 Neutrophils % 68 % Lymphocytes % 22 % Monocytes % 7 % Eosinophils % 2 % Basophils % 1 % Neutrophils # 7.7 (1.3-7.7) k/uL Lymphocytes # 2.4 (1.0-4.8) k/uL Monocytes # 0.8 (0-1.0) k/uL Eosinophils # 0.2 (0-0.7) k/uL Basophils # 0.1 (0-0.2) k/uL PT 10.7 (10.0-12.5) sec INR 1.0 (<1.2) APTT 22.0 (22.0-30.0) sec Sodium 142 (137-145) mmol/L Potassium 4.2 (3.5-5.1) mmol/L Chloride 108 H (98-107) mmol/L Carbon Dioxide 21 L (22-30) mmol/L Anion Gap 13 mmol/L BUN 28 H (7-17) mg/dL Creatinine 0.85 (0.52-1.04) mg/dL Est GFR (CKD-EPI)AfAm 85 (>60 ml/min/1.73 sqM) Est GFR (CKD-EPI)NonAf 73 (>60 ml/min/1.73 sqM) Glucose 155 H (74-99) mg/dL Calcium 9.8 (8.4-10.2) mg/dL Total Bilirubin 0.7 (0.2-1.3) mg/dL AST 18 (14-36) U/L ALT 22 (4-34) U/L Alkaline Phosphatase 37 L (38-126) U/L Total Protein 7.0 (6.3-8.2) g/dL Albumin 4.1 (3.5-5.0) g/dL Disposition Clinical Impression: CVA (cerebral vascular accident) Disposition: ADMITTED IP TO THIS [facility] Condition: Fair Referrals: Lai Schulz MD [Primary Care Provider] - 1-2 days Decision Time: 14:22
[2024-11-24 12:34] LABS: Basophils # (A) 0.1 k/uL (0-0.2); Basophils % (A) 1 %; Eosinophils # (A) 0.2 k/uL (0-0.7); Eosinophils % (A) 2 %; HCT 41.2 % (34.0-46.0); HGB 13.6 gm/dL (11.4-16.0); Lymphocytes # (A) 2.4 k/uL (1.0-4.8); Lymphocytes % (A) 22 %; MCH 31.1 pg (25.0-35.0); MCHC 33.1 g/dL (31.0-37.0); MCV 93.8 fL (80.0-100.0); Mean Platelet Volume 8.6; Monocytes # (A) 0.8 k/uL (0-1.0); Monocytes % (A) 7 %; Neutrophils # (A) 7.7 k/uL (1.3-7.7); Neutrophils % (A) 68 %; Platelet Count 258 k/uL (150-450); RBC 4.39 m/uL (3.80-5.40); RDW 13.2 % (11.5-15.5); WBC 11.3 k/uL (3.8-10.6)
[2024-11-24 12:47] LABS: Prothrombin Time 10.7 sec (10.0-12.5)
[2024-11-24 12:51] LABS: ALT 22 U/L (4-34); AST 18 U/L (14-36); African American GFR (CKD) 85 (>60 ml/min/1.73 sqM); Albumin 4.1 g/dL (3.5-5.0); Alkaline Phosphatase 37 U/L (38-126); Anion Gap 13 mmol/L; Blood Urea Nitrogen 28 mg/dL (7-17); Calcium 9.8 mg/dL (8.4-10.2); Carbon Dioxide 21 mmol/L (22-30); Chloride 108 mmol/L (98-107); Glucose 155 mg/dL (74-99); Non-African American GFR(CKD) 73 (>60 ml/min/1.73 sqM); Potassium 4.2 mmol/L (3.5-5.1); Sodium 142 mmol/L (137-145); Total Bilirubin 0.7 mg/dL (0.2-1.3)
--- NOTE | 2024-11-24 14:11 | CT ---
EXAMINATION TYPE: CT brain wo con DATE OF EXAM: 11/24/2024 1:47 PM COMPARISON: None. CLINICAL INDICATION: Female, 64 years old with history of stroke symptoms, left face, left arm, cva/l eft am numbness TECHNIQUE: CT of the brain is performed utilizing 3 mm thick sections through the posterior fossa and 3 mm thick sections through the remaining calvarium. Study is performed within 24 hours of arrival to the hospital. Contrast used: mL of , (none if empty) CT DLP: 1092.4 mGycm, Automated exposure control for dose reduction was used. FINDINGS: No abnormal hyperdensity is present to suggest an acute intracranial hemorrhage. No mass lesion is evident. No acute infarcts are evident. There is an old right occipital lobe infarct. Mild periventricular whi te matter hypodensity is present greatest on the right, stable from prior study. Prior lacunar infarc t or chronic white matter ischemic changes may be present. Ventricles and sulci are appropriate for the patient age. Paranasal sinuses and mastoid air cells within the [id number] are clear. Hyperostosis frontalis in ternus, normal variant is present. IMPRESSION: 1. No acute intracranial process. Follow up MRI can be performed as clinically indicated. 2. Old right occipital lobe infarct. Correlate infarct or periventricular white matter ischemic type changes are present greater on the right and present previously. [facility], , 11/24/2024 2:09 PM
[2024-11-24] MEDS ORDERED: NALOXONE 0.4 MG/ML 1 ML VIAL IV PRN (14:20)
--- NOTE | 2024-11-24 14:22 | CT ---
EXAMINATION TYPE: CT angio head neck DATE OF EXAM: 11/24/2024 1:59 PM COMPARISON: None. CLINICAL INDICATION: Female, 64 years old with history of neurologic defecit, recent cva/new onset le ft side nubness TECHNIQUE: CTA scan is performed with axial images are obtained, coronal and sagittal reformatted alberto ges are reviewed. 3-D reconstructed images are created on an independent workstation and reviewed. [facility] images are reviewed. NASCET criteria was used in interpretation of this exam? Contrast used:65ml mL of Isovue 370 with IV Contrast, (none if empty) Oral contrast used: (none if empty) CT DLP: 425.1 mGycm, Automated exposure control for dose reduction was used. FINDINGS: Carotid/Vascular Structures: There is a 3 vessel arch. Common carotid arteries bifurcate into internal and external carotid arteries without significant alondra w limiting stenosis. There is some mild narrowing of less than 41% at the left internal carotid arter y origin. No significant flow-limiting stenosis of the right carotid bifurcation. Vertebral arteries are codominant. Internal carotid arteries and vertebral arteries are patent to the skull base. Cervical of [place]: Vertebral basilar system appears normal. Posterior cerebral vasculature is unrema rkable. Caliber of the right intracranial internal carotid artery at the carotid siphon appears diminished on the right compared to the left. This terminates in right M1 segment. Right A1 segment is not identif ied. Right middle cerebral artery branches appear normal The anterior communicating artery is patent. The right posterior communicating artery is patent. The left posterior communicating artery is may be small but patent. IMPRESSION: 1. Right internal carotid artery terminates in the right M1 segment. Right A1 segment is absent. 2. Normal variation in the [place] of [place]. 3. Mild narrowing left internal carotid artery origin less than 41%. Milder narrowing of the right ca rotid artery is present [facility], , 11/24/2024 2:19 PM
[2024-11-24] MEDS ORDERED: SODIUM CHLORIDE 0.9% 1,000 ML IV SCH (14:30)
[2024-11-24] MEDS: ASPIRIN 81 MG PO STA (14:33)
[2024-11-24 14:42] VITALS: BP 143/74; PULSE 76; RESP 18
[2024-11-24] MEDS ORDERED: traMADol 50 MG TAB PO PRN (15:55)
[2024-11-24] MEDS ORDERED: DEXTROSE 50% SYRINGE 50 ML IVP PRN ×2 (15:56)
[2024-11-24] MEDS ORDERED: ENOXAPARIN 40 MG/0.4 ML SYRINGE SQ SCH (16:00)
[2024-11-24] MEDS ORDERED: INSULIN ASPART (NovoLOG) 100 UNIT/ML VIAL SQ SCH (17:30)
[2024-11-24] MEDS ORDERED: GABAPENTIN 300 MG CAP PO SCH (18:00)
[2024-11-24] MEDS ORDERED: SACUBITRIL/VALSARTAN 24 MG-26 MG TABLET PO SCH (21:00)
[2024-11-24] MEDS ORDERED: ATORVASTATIN 80 MG TAB PO SCH (21:00)
[2024-11-24] MEDS ORDERED: TICAGRELOR 90 MG TAB PO SCH (21:00)
[2024-11-25] MEDS ORDERED: INSULIN DETEMIR (LEVEMIR) 100 UNIT/ML SYR SQ SCH (07:00)
[2024-11-25] MEDS ORDERED: metFORMIN 500 MG TAB PO SCH (07:30)
[2024-11-25] MEDS ORDERED: ISOSORBIDE MONONITRATE ER 30 MG TAB.ER.24H PO SCH (09:00)
[2024-11-25] MEDS ORDERED: METOPROLOL SUCCINATE (ER) 100 MG TAB.ER.24H PO SCH (09:00)
--- NOTE | 2024-12-01 10:46 | P.HPIM ---
History of Present Illness H&P Date: 11/24/24 Patient not seen by me. Left AMA from ER Past Medical History Past Medical History: Asthma, Coronary Artery Disease (CAD), Chest Pain / Angina, Heart Failure, CVA/TIA, Diabetes Mellitus, Hyperlipidemia, Hypertension Additional Past Medical History / Comment(s): Peripheral neuropathy. Morbid obesity with a BMI of 41.6 kg/m\, pt has known triple vessel heart disease History of Any Multi-Drug Resistant Organisms: None Reported Past Surgical History: Cholecystectomy, Heart Catheterization, Hysterectomy Past Anesthesia/Blood Transfusion Reactions: No Reported Reaction Past Psychological History: Depression Smoking Status: Former smoker Past Alcohol Use History: None Reported Past Drug Use History: Marijuana - Past Family History Mother Family Medical History: Hypertension Additional Family Medical History / Comment(s): Pulmonary hypertension, scleroderma, chronic kidney disease Father Family Medical History: Myocardial Infarction ([place]) Additional Family Medical History / Comment(s): CABG surgery in his mid 60s Medications and Allergies Home Medications Medication Instructions Recorded Confirmed Type Atorvastatin [Lipitor] 80 mg PO HS #30 tab 10/14/24 11/24/24 Rx Gabapentin 600 mg PO QID #120 tab 10/14/24 11/24/24 Rx Isosorbide Mononitrate ER [Imdur] 30 mg PO DAILY #30 tab 10/14/24 11/24/24 Rx Metoprolol Succinate (ER) [Toprol 100 mg PO DAILY #30 tab 10/14/24 11/24/24 Rx XL] Sacubitril/Valsartan [Entresto 24 1 tab PO BID #60 tab 10/14/24 11/24/24 Rx mg-26 mg Tablet] Ticagrelor [Brilinta] 90 mg PO BID #60 tab 10/14/24 11/24/24 Rx metFORMIN HCL ER [Glucophage XR] 500 mg PO DAILY #30 tab 10/14/24 11/24/24 Rx traMADol HCl [Ultram] 50 mg PO Q6H PRN #12 tab 10/14/24 11/24/24 Rx Insulin Glargine,Hum.rec.anlog 16 units SQ DAILY #1 each 10/19/24 11/24/24 Rx [Lantus Solostar Pen] glipiZIDE [Glucotrol] 2.5 mg PO BID 11/24/24 11/24/24 History Allergies Allergy/AdvReac Type Severity Reaction Status Date / Time aspirin Allergy Itching Verified 11/24/24 14:41 Penicillins Allergy Swelling/Ra Verified 11/24/24 14:41 sh/Hives/It pan Results CBC & Chem 7: 11/24/24 12:10 11/24/24 12:10
--- NOTE | 2024-12-01 10:47 | P.DS ---
Providers Date of admission: 11/24/24 14:21 Expected date of discharge: 11/24/24 (AMA) Attending physician: [facility] Consults: 11/24/24 14:20 Consult Physician Routine Consulting Provider: Rosalie Brewer Consult Reason/Comments: cva Do you want consulting provider notified?: Yes Primary care physician: [facility] Hospital Course: I went to see the patient in the ER. Was informed that that patient left AMA. Plan - Discharge Summary New Discharge Prescriptions: No Action metFORMIN HCL ER [Glucophage XR] 500 mg PO DAILY #30 tab Sacubitril/Valsartan [Entresto 24 mg-26 mg Tablet] 1 tab PO BID #60 tab Atorvastatin [Lipitor] 80 mg PO HS #30 tab traMADol HCl [Ultram] 50 mg PO Q6H PRN #12 tab PRN Reason: Pain Insulin Glargine,Hum.rec.anlog [Lantus Solostar Pen] 16 units SQ DAILY #1 each Ticagrelor [Brilinta] 90 mg PO BID #60 tab Gabapentin 600 mg PO QID #120 tab Isosorbide Mononitrate ER [Imdur] 30 mg PO DAILY #30 tab Metoprolol Succinate (ER) [Toprol XL] 100 mg PO DAILY #30 tab glipiZIDE [Glucotrol] 2.5 mg PO BID Discharge Medication List Atorvastatin [Lipitor] 80 mg PO HS #30 tab 10/14/24 [Rx] Gabapentin 600 mg PO QID #120 tab 10/14/24 [Rx] Isosorbide Mononitrate ER [Imdur] 30 mg PO DAILY #30 tab 10/14/24 [Rx] Metoprolol Succinate (ER) [Toprol XL] 100 mg PO DAILY #30 tab 10/14/24 [Rx] Sacubitril/Valsartan [Entresto 24 mg-26 mg Tablet] 1 tab PO BID #60 tab 10/14/24 [Rx] Ticagrelor [Brilinta] 90 mg PO BID #60 tab 10/14/24 [Rx] metFORMIN HCL ER [Glucophage XR] 500 mg PO DAILY #30 tab 10/14/24 [Rx] traMADol HCl [Ultram] 50 mg PO Q6H PRN #12 tab 10/14/24 [Rx] Insulin Glargine,Hum.rec.anlog [Lantus Solostar Pen] 16 units SQ DAILY #1 each 10/19/24 [Rx] glipiZIDE [Glucotrol] 2.5 mg PO BID 11/24/24 [History] Follow up Appointment(s)/Referral(s): Lai Schulz MD [Primary Care Provider] - 1-2 days Discharge Disposition: LEFT AGAINST MEDICAL ADVICE
== END 2024-11-24 19:00 | disposition left against medical advice (07) ==
LOC: EC 11:26 → 3SCARD 14:21 → INTOOBSV 14:21 → 3SCARD 18:35
PROVIDERS: ADMIT Hospitalist; ATTEND Hospitalist
DX: R20.0 Anesthesia of skin (principal); I25.10 Atherosclerotic heart disease of native coronary artery without angina pectoris; I11.0 Hypertensive heart disease with heart failure; I50.9 Heart failure, unspecified; E11.42 Type 2 diabetes mellitus with diabetic polyneuropathy; E78.5 Hyperlipidemia, unspecified; F32.A Depression, unspecified; E66.01 Morbid (severe) obesity due to excess calories; Z68.41 Body mass index [BMI] 40.0-44.9, adult; Z86.73 Personal history of transient ischemic attack (TIA), and cerebral infarction without residual deficits; Z87.891 Personal history of nicotine dependence; Z79.02 Long term (current) use of antithrombotics/antiplatelets; Z79.4 Long term (current) use of insulin; Z79.84 Long term (current) use of oral hypoglycemic drugs; Z79.899 Other long term (current) drug therapy; Z88.0 Allergy status to penicillin; Z88.6 Allergy status to analgesic agent; Z53.29 Procedure and treatment not carried out because of patient's decision for other reasons
CPT/HCPCS: 99285; 36415; 93005; 80053; 85025; 85610; 85730; 70496; 70450; 70498; G0378; Q9967

== ENCOUNTER → 2024-11-30 | Outpatient (CLI) | payer OTHER | END | disposition home or self-care (01) | LOC: LABWHC1 12:53 | PROVIDERS: ATTEND Psychiatry & Neurology Neurology | DX: G31.84 Mild cognitive impairment of uncertain or unknown etiology (principal) | CPT/HCPCS: 36415; 82607; 84436; 84443 ==